=== PATIENT | male | born 1975 | race African-American/Black ===

== ENCOUNTER 2018-10-31 10:37 | Emergency (ER) | payer SELFPAY ==
--- NOTE | 2018-10-31 11:52 | RAD REPORT ---
EXAM DESCRIPTION: RAD - Chest Single View - 10/31/2018 11:46 am CLINICAL HISTORY: Chest pain;Congestion;Cough Chest pain. COMPARISON: CHEST SINGLE VIEW dated 07/06/2015 FINDINGS: Portable technique limits examination quality. The lungs are grossly clear. The heart is normal in size. No displaced fractures. IMPRESSION: No acute intrathoracic process suspected.
--- NOTE | 2018-10-31 11:57 | EKG ---
Test Date: 2018-10-31 Test Time: 11:44:07 Silver Solution Mixer: ELEANOR MEASUREMENT RESULTS: Intervals: Rate: 92 UT: 146 QRSD: 90 QT: 366 QTc: 452 Clemons: P: 70 UT: 146 QRS: 8 T: 81 INTERPRETIVE STATEMENTS: Normal sinus rhythm Possible Left atrial enlargement Incomplete right bundle branch block Borderline ECG Compared to ECG 07/06/2015 20:28:21 Myocardial infarct finding no longer present Electronically Signed On 10-31-18 11:56:57 HONEY PROCESSOR by Evans Price
[2018-10-31] MEDS ORDERED: METHYLPREDNISOLONE 125 MG INJ ONE (12:03)
[2018-10-31] MEDS ORDERED: LEVALBUTEROL 1.25 MG/3 ML NEB ONE (12:03)
[2018-10-31 12:26] LABS: Absolute Lymphocytes (CBC) 1.3 K/uL (0.7-4.9); Absolute Monocytes 0.7 K/uL (0.1-1.3); Absolute Neutrophil 9.2 K/uL (1.8-8.0); Basophils % 0.4 % (0-1.3); Eosinophils % 0.6 % (0-4.4); Hematocrit 42.9 % (39.6-49.0); Lymphocytes % 11.3 % (15.3-44.8); MPV 8.8 fL (7.6-11.3); Monocytes % 5.8 % (3.3-12.3); RBC Red Blood Cell Count 5.12 M/uL (4.33-5.43)
[2018-10-31 12:29] LABS: Protime INR 1.12
[2018-10-31 12:46] LABS: ALT/SGPT 21 U/L (12-78); AST/SGOT 10 U/L (15-37); Albumin 2.7 g/dL (3.4-5.0); Alkaline Phosphatase 74 U/L (45-117); BUN Blood Urea Nitrogen 18 mg/dL (7-18); Bicarbonate 26 mmol/L (21-32); Bilirubin Direct < 0.1 mg/dL (0-0.2); Bilirubin Total 0.3 mg/dL (0.2-1.0); Glucose Level 316 mg/dL (74-106); Magnesium 2.1 mg/dL (1.8-2.4); NT PRO-BNP 438 pg/mL (<125); Potassium 3.3 mmol/L (3.5-5.1); Protein, Total 6.2 g/dL (6.4-8.2); Sodium Level 139 mmol/L (136-145); Troponin (Emerg Dept Use Only) < 0.02 ng/mL (0.0-0.045)
[2018-10-31] MEDS ORDERED: POTASSIUM CL SA 10 MEQ TAB PO ONE (14:02)
[2018-10-31] MEDS ORDERED: INSULIN -REGULAR HUMAN 50 UNIT/0.5 ML ML ONE (14:02)
[2018-10-31] MEDS ORDERED: ACETAMINOPHEN 500 MG TAB ONE (14:03)
--- NOTE | 2018-10-31 15:00 | ER ---
Nurse's Notes [facility] Name: Krishna Ha Age: 42 yrs Sex: Male : 1975 Arrival Date: 10/31/2018 Time: 10:42 Bed 24 Private MD: Clement Rodriguez Diagnosis: Viral infection, unspecified;Fever, unspecified;Acute upper respiratory infection, unspecified Presentation: 10/31 10:52 Presenting complaint: Patient states: i have difficulty breathing, cant breathe that hj good and it started last night; reports cough, reports fever and chills; took Maddi seltzer plus INDUSTRIAL STAFF NURSE;. Transition of care: patient was not received from another setting of care. Onset of symptoms was October 31, 2018. Risk Assessment: Do you want to hurt yourself or someone else? Patient reports no desire to harm self or others. Initial Sepsis Screen: Does the patient meet any 2 criteria? No. Patient's initial sepsis screen is negative. Does the patient have a suspected source of infection? No. Patient's initial sepsis screen is negative. Care prior to arrival: None. 10:52 Method Of Arrival: Ambulatory 10:52 Acuity: DOIMNIQUE 3 hj Triage Assessment: 10:54 General: Appears in no apparent distress. uncomfortable, Behavior is calm, cooperative, hj appropriate for age. Pain: Complains of pain in chest. Respiratory: Reports shortness of breath Onset: The symptoms/episode began/occurred yesterday, the patient has mild shortness of breath. Historical: - Allergies: 10:54 Ranitidine HCl; hj - Home Meds: 10:54 lisinopril-hydrochlorothiazide oral oral [Active]; Glimepiride Oral [Active]; Invokamet hj oral oral [Active]; - PMHx: 10:54 Diabetes - NIDDM; Hypertension; hj - PSHx: 10:54 None; hj - Immunization history:: Adult Immunizations up to date. - Social history:: Smoking status: Patient uses tobacco products, Patient uses alcohol. - Ebola Screening: : Patient negative for fever greater than or equal to 101.5 degrees Fahrenheit, and additional compatible Ebola Virus Disease symptoms Patient denies exposure to infectious person Patient denies travel to an Ebola-affected area in the 21 days before illness onset. Screenin:55 Abuse screen: Denies threats or abuse. Denies injuries from another. Nutritional hj screening: No deficits noted. Tuberculosis screening: No symptoms or risk factors identified. Fall Risk None identified. Assessment: 10:55 Respiratory: Airway is patent Respiratory effort is even, unlabored, Respiratory hj pattern is regular, 10:55 Cardiovascular: Rhythm is. hj 11:30 General: Appears in no apparent distress. uncomfortable, Behavior is calm, cooperative, aj1 appropriate for age. Pain: Complains of pain in chest Pain currently is 8 out of 10 on a pain scale. Neuro: Level of Consciousness is awake, alert, obeys commands, Oriented to person, place, time, situation. Cardiovascular: Reports chest pain, Patient's skin is warm and dry. Rhythm is sinus rhythm. Respiratory: Reports shortness of breath cough that is persistent Airway is patent Respiratory effort is even, unlabored, Respiratory pattern is regular, symmetrical, Breath sounds are coarse bilaterally. GI: No signs and/or symptoms were reported involving the gastrointestinal system. : No signs and/or symptoms were reported regarding the genitourinary system. Derm: No signs and/or symptoms reported regarding the dermatologic system. Skin is pink, warm \T\ dry. normal. Musculoskeletal: No signs and/or symptoms reported regarding the musculoskeletal system. Circulation, motion, and sensation intact. 12:23 Reassessment: Patient appears in no apparent distress at this time. No changes from aj1 previously documented assessment. Patient and/or family updated on plan of care and expected duration. Pain level reassessed. Patient is alert, oriented x 3, equal unlabored respirations, skin warm/dry/pink. 13:40 Reassessment: Dr. Larsen at bedside. aj1 14:10 Reassessment: Patient appears in no apparent distress at this time. No changes from aj1 previously documented assessment. Patient and/or family updated on plan of care and expected duration. Pain level reassessed. Patient is alert, oriented x 3, equal unlabored respirations, skin warm/dry/pink. 15:27 Reassessment: Patient appears in no apparent distress at this time. No changes from aj1 previously documented assessment. Patient and/or family updated on plan of care and expected duration. Pain level reassessed. Patient is alert, oriented x 3, equal unlabored respirations, skin warm/dry/pink. Vital Signs: 10:55 BP 138 / 82; Pulse 95; Resp 18; Temp 100.9(TE); Pulse Ox 97% on R/A; Weight 99.79 kg; hj Height 5 ft. 9 in. (175.26 cm); Pain 8/10; 12:23 BP 133 / 92; Pulse 94; Resp 17; Pulse Ox 100% on Nebulizer Mask; aj1 14:10 BP 139 / 87; Pulse 99; Resp 18; Pulse Ox 100% on R/A; aj1 15:27 BP 123 / 86; Pulse 91; Resp 18; Pulse Ox 100% on R/A; aj1 10:55 Body Mass Index 32.49 (99.79 kg, 175.26 cm) hj ED Course: 10:42 Patient arrived in ED. mr 10:42 Clement Rodriguez MD is Private Physician. mr 10:43 Abdoulaye Larsen MD is Attending Physician. kdr 10:53 Triage completed. hj 10:55 Arm band placed on right wrist. hj 10:55 Patient has correct armband on for positive identification. Bed in low position. Call hj light in reach. Side rails up X 1. 11:30 No provider procedures requiring assistance completed. aj1 11:31 Coleen Malagon, RN is Primary Nurse. aj1 11:46 XRAY Chest (1 view) In Process Unspecified. EDMS 11:46 X-ray completed. Portable x-ray completed in exam room. Patient tolerated procedure jb2 well. 11:54 EKG done, by ground water technician. reviewed by Abdoulaye Larsen MD. sm3 12:15 Initial lab(s) drawn, by wi, sent to lab. Inserted saline lock: 22 gauge in right aj1 antecubital area, using aseptic technique. Blood collected. 14:58 Clement Rodriguez MD is Referral Physician. kdr 15:28 IV discontinued, intact, bleeding controlled, No redness/swelling at site. Pressure aj1 dressing applied. Administered Medications: 12:15 Drug: SOLU-Medrol 125 mg Route: IVP; Site: right antecubital; aj1 14:09 Follow up: Response: No adverse reaction aj1 12:16 Drug: Xopenex (3) 1.25 mg Route: Inhalation; aj1 14:09 Follow up: Response: No adverse reaction aj1 14:00 Drug: Potassium Chloride 40 mEq Route: PO; aj1 15:29 Follow up: Response: No adverse reaction aj1 14:00 Drug: Insulin Regular Human 6 units {Co-Signature: tl3 (Elena Moreno RN).} Route: IVP; aj Site: right antecubital; 15:29 Follow up: Response: No adverse reaction aj1 14:00 Drug: Tylenol 1000 mg Route: PO; aj1 15:29 Follow up: Response: No adverse reaction aj1 Point of Care Testing: Blood Glucose: 14:32 Blood Glucose: 166 mg/dL; aj1 Ranges: Outcome: 14:59 Discharge ordered by . kdr 15:28 Discharged to home ambulatory. aj1 15:28 Condition: good 15:28 Discharge instructions given to patient, Instructed on discharge instructions, follow up and referral plans. medication usage, Demonstrated understanding of instructions, follow-up care, medications, Prescriptions given X 2. 15:29 Patient left the ED. aj1 Signatures: Dispatcher [employer] Coleen Chapman RN RN aj1 Abdoulaye Larsen MD MD kdr Rivera, Mary mr FlemingEladio jb2 Jorge Walton, RN RN Shaina Rose 3 Elena Moreno RN tl3 Corrections: (The following items were deleted from the chart) 10:57 10:55 Pulse 95bpm; Resp 18bpm; Pulse Ox 97% RA; Temp 100.9F Temporal; 99.79 kg; Height hj 5 ft. 9 in.; BMI: 32.4; Pain 8/10; hj
--- NOTE | 2018-10-31 15:00 | EDPHYS ---
Physician Documentation [facility] Name: Krishna Ha Age: 42 yrs Sex: Male : 1975 Arrival Date: 10/31/2018 Time: 10:42 Bed 24 Private MD: Clement Rodriguez ED Physician Abdoulaye Larsen HPI: 10/31 14:53 This 42 yrs old Black Male presents to ER via Ambulatory with complaints of Breathing kdr Difficulty. 14:53 The patient has shortness of breath at rest, with light activity. Onset: The kdr symptoms/episode began/occurred gradually. 14:54 Onset: The symptoms/episode began/occurred last night. Duration: The symptoms are kdr continuous, and are steadily getting worse. The patient's shortness of breath is aggravated by coughing, exertion, light activity, is alleviated by nothing. Associated signs and symptoms: Pertinent positives: non-productive cough, Pertinent negatives: dizziness, fever, hemoptysis, loss of consciousness, nausea, numbness in extremities, visual changes, vomiting. Severity of symptoms: At their worst the symptoms were mild moderate just prior to arrival, in the emergency department the symptoms are unchanged. The patient has not experienced similar symptoms in the past. The patient has not recently seen a physician. Historical: - Allergies: 10:54 Ranitidine HCl; hj - Home Meds: 10:54 lisinopril-hydrochlorothiazide oral oral [Active]; Glimepiride Oral [Active]; Invokamet hj oral oral [Active]; - PMHx: 10:54 Diabetes - NIDDM; Hypertension; hj - PSHx: 10:54 None; hj - Immunization history:: Adult Immunizations up to date. - Social history:: Smoking status: Patient uses tobacco products, Patient uses alcohol. - Ebola Screening: : Patient negative for fever greater than or equal to 101.5 degrees Fahrenheit, and additional compatible Ebola Virus Disease symptoms Patient denies exposure to infectious person Patient denies travel to an Ebola-affected area in the 21 days before illness onset. ROS: 14:54 Constitutional: Negative for fever, chills, and weight loss, Eyes: Negative for injury, kdr pain, redness, and discharge, ENT: Negative for injury, pain, and discharge, Neck: Negative for injury, pain, and swelling, Abdomen/GI: Negative for abdominal pain, nausea, vomiting, diarrhea, and constipation, Back: Negative for injury and pain, : Negative for injury, bleeding, discharge, and swelling, MS/Extremity: Negative for injury and deformity, Skin: Negative for injury, rash, and discoloration, Neuro: Negative for headache, weakness, numbness, tingling, and seizure activity. Psych: Negative for depression, anxiety, suicide ideation, homicidal ideation, and hallucinations, Allergy/Immunology: Negative for hives, rash, and allergies, Endocrine: Negative for neck swelling, polydipsia, polyuria, polyphagia, and marked weight changes, Hematologic/Lymphatic: Negative for swollen nodes, abnormal bleeding, and unusual bruising. 14:54 Cardiovascular: Positive for chest pain, with cough, with movement, of the anterior aspect of right upper chest, anterior aspect of left upper chest, mid-sternal area, right breast and left breast, Negative for edema, orthopnea, palpitations, paroxysmal nocturnal dyspnea. Exam: 14:54 Constitutional: This is a well developed, well nourished patient who is awake, alert, kdr and in no acute distress. Head/Face: Normocephalic, atraumatic. Eyes: Pupils equal round and reactive to light, extra-ocular motions intact. Lids and lashes normal. Conjunctiva and sclera are non-icteric and not injected. Cornea within normal limits. Periorbital areas with no swelling, redness, or edema. Neck: Trachea midline, no thyromegaly or masses palpated, and no cervical lymphadenopathy. Supple, full range of motion without nuchal rigidity, or vertebral point tenderness. No Meningismus. Chest/axilla: Normal chest wall appearance and motion. Nontender with no deformity. No lesions are appreciated. Cardiovascular: Regular rate and rhythm with a normal S1 and S2. No gallops, murmurs, or rubs. Normal PMI, no JVD. No pulse deficits. Respiratory: Lungs have equal breath sounds bilaterally, clear to auscultation and percussion. No rales, rhonchi or wheezes noted. No increased work of breathing, no retractions or nasal flaring. Abdomen/GI: Soft, non-tender, with normal bowel sounds. No distension or tympany. No guarding or rebound. No evidence of tenderness throughout. Back: No spinal tenderness. No costovertebral tenderness. Full range of motion. Skin: Warm, dry with normal turgor. Normal color with no rashes, no lesions, and no evidence of cellulitis. MS/ Extremity: Pulses equal, no cyanosis. Neurovascular intact. Full, normal range of motion. Neuro: Awake and alert, GCS 15, oriented to person, place, time, and situation. Cranial nerves II-XII grossly intact. Motor strength 5/5 in all extremities. Sensory grossly intact. Cerebellar exam normal. Normal gait. Psych: Awake, alert, with orientation to person, place and time. Behavior, mood, and affect are within normal limits. Vital Signs: 10:55 BP 138 / 82; Pulse 95; Resp 18; Temp 100.9(TE); Pulse Ox 97% on R/A; Weight 99.79 kg; hj Height 5 ft. 9 in. (175.26 cm); Pain 8/10; 12:23 BP 133 / 92; Pulse 94; Resp 17; Pulse Ox 100% on Nebulizer Mask; aj1 14:10 BP 139 / 87; Pulse 99; Resp 18; Pulse Ox 100% on R/A; aj1 15:27 BP 123 / 86; Pulse 91; Resp 18; Pulse Ox 100% on R/A; aj1 10:55 Body Mass Index 32.49 (99.79 kg, 175.26 cm) hj MDM: 14:54 Data reviewed: vital signs, nurses notes, lab test result(s), radiologic studies. kdr Counseling: I had a detailed discussion with the patient and/or guardian regarding: the historical points, exam findings, and any diagnostic results supporting the discharge/admit diagnosis, lab results, radiology results, the need for outpatient follow up. 14:59 Patient medically screened. kdr 10/31 11:21 Order name: Basic Metabolic Panel; Complete Time: 13:20 kdr 10/31 11:21 Order name: CBC with Diff; Complete Time: 13:20 kdr 10/31 11:21 Order name: LFT's; Complete Time: 13:20 kdr 10/31 11:21 Order name: Magnesium; Complete Time: 13:20 kdr 10/31 11:21 Order name: NT PRO-BNP; Complete Time: 13:20 kdr 10/31 11:21 Order name: PT-INR; Complete Time: 13:20 kdr 10/31 11:21 Order name: Troponin (emerg Dept Use Only); Complete Time: 13:20 kdr 10/31 11:21 Order name: XRAY Chest (1 view); Complete Time: 12:23 kdr 10/31 13:46 Order name: Flu; Complete Time: 14:52 kdr 10/31 11:21 Order name: EKG; Complete Time: 11:21 kdr 10/31 11:21 Order name: Cardiac monitoring; Complete Time: 12:17 kdr 10/31 11:21 Order name: EKG - Nurse/Tech; Complete Time: 12:17 kdr 10/31 11:21 Order name: IV Saline Lock; Complete Time: 12:17 kdr 10/31 11:21 Order name: Labs collected and sent; Complete Time: 12:17 kdr 10/31 11:21 Order name: O2 Per Protocol; Complete Time: 12:17 kdr 10/31 11:21 Order name: O2 Sat Monitoring; Complete Time: 12:18 kdr 10/31 13:45 Order name: FSBS: 30 minutes after insulin; Complete Time: 14:32 kdr Administered Medications: 12:15 Drug: SOLU-Medrol 125 mg Route: IVP; Site: right antecubital; aj1 14:09 Follow up: Response: No adverse reaction aj1 12:16 Drug: Xopenex (3) 1.25 mg Route: Inhalation; aj1 14:09 Follow up: Response: No adverse reaction aj1 14:00 Drug: Potassium Chloride 40 mEq Route: PO; aj1 15:29 Follow up: Response: No adverse reaction aj1 14:00 Drug: Insulin Regular Human 6 units {Co-Signature: tl3 (Elena Moreno RN).} Route: IVP; aj1 Site: right antecubital; 15:29 Follow up: Response: No adverse reaction aj1 14:00 Drug: Tylenol 1000 mg Route: PO; aj1 15:29 Follow up: Response: No adverse reaction aj1 Point of Care Testing: Blood Glucose: 14:32 Blood Glucose: 166 mg/dL; aj1 Ranges: Critical Glucose Levels:Adult <50 mg/dl or >400 mg/dl <40 mg/dl or >180 mg/dl Disposition: 10/31/18 14:59 Discharged to Home. Impression: Viral infection, unspecified, Fever, unspecified, Acute upper respiratory infection, unspecified. - Condition is Stable. - Discharge Instructions: Upper Respiratory Infection, Adult, Upper Respiratory Infection, Adult, [id number]. - Prescriptions for Guaifenesin AC 10- 100 mg/5 mL Oral Liquid - take 10 milliliter by ORAL route every 4 hours As needed; 240 milliliter. Zithromax Z- Ivan 250 mg Oral Tablet - take 1 tablet by ORAL route as directed for 5 days Day 1 - take two (2) tablets one time. Day 2, 3, 4 , 5 take one (1) tablet once daily.; 6 tablet. - Medication Reconciliation Form, Thank You Letter, Antibiotic Education form. - Follow up: Clement Rodriguez MD; When: 2 - 3 days; Reason: If symptoms return, Further diagnostic work-up, Recheck today's complaints, Continuance of care, Re-evaluation by your physician. - Problem is new. - Symptoms have improved. Signatures: Dispatcher [employer] EDMS Coleen Malagon RN RN aj1 Abdoulaye Larsen MD MD [facility] Jorge Walton RN RN Elena Moreno RN tl3 Corrections: (The following items were deleted from the chart) 15:29 14:59 10/31/2018 14:59 Discharged to Home. Impression: Viral infection, unspecified; aj1 Fever, unspecified; Acute upper respiratory infection, unspecified. Condition is Stable. Forms are Medication Reconciliation Form, Thank You Letter, Antibiotic Education, Prescription Opioid Use. Follow up: Clement Rodriguez; When: 2 - 3 days; Reason: If symptoms return, Further diagnostic work-up, Recheck today's complaints, Continuance of care, Re-evaluation by your physician. Problem is new. Symptoms have improved. kdr
== END 2018-10-31 15:29 | disposition home or self-care (01) ==
LOC: ER 10:37
DX: B34.9 Viral infection, unspecified (principal); J06.9 Acute upper respiratory infection, unspecified; I10 Essential (primary) hypertension; E11.9 Type 2 diabetes mellitus without complications; Z72.0 Tobacco use; Z88.8 Allergy status to other drugs, medicaments and biological substances
CPT/HCPCS: 36415; 71045; 80048; 80076; 82962; 83735; 83880; 84484; 85025; 85610; 87804; 93005; 96374; 96375; 99285; J2930

== ENCOUNTER 2019-07-28 13:49 | Emergency (ER) | payer SELFPAY ==
[2019-07-28] MEDS ORDERED: LIDOCAINE 1% MPF 5 ML VIAL ONE (14:13)
[2019-07-28] MEDS ORDERED: TETANUS & DIPHTHERIA TOX,ADULT 0.5 ML VIAL ONE (14:18)
--- NOTE | 2019-07-28 14:34 | ER ---
Nurse's Notes [facility] Name: Krishna Ha Age: 43 yrs Sex: Male : 1975 Arrival Date: 07/28/2019 Time: 13:51 Bed 30 Private MD: Diagnosis: Laceration without foreign body of right hand Presentation: 07/28 13:54 Presenting complaint: Patient states: "Im at my [facility] shack and there was a fly in there aj1 and he went to the [facility] and I tried to hit him, but my hand went through the [facility]" Laceration noted to right hand, no bleeding noted at this time. Transition of care: patient was not received from another setting of care. Complicating Factors: Possible glass present, none visualized at this time. Onset of symptoms was July 28, 2019 at 13:30. Risk Assessment: Do you want to hurt yourself or someone else? Patient reports no desire to harm self or others. Initial Sepsis Screen: Does the patient meet any 2 criteria? No. Patient's initial sepsis screen is negative. Does the patient have a suspected source of infection? No. Patient's initial sepsis screen is negative. Care prior to arrival: None. 13:54 Method Of Arrival: Ambulatory aj 13:54 Acuity: DOMINIQUE 4 aj1 Triage Assessment: 13:59 General: Appears in no apparent distress. comfortable, Behavior is calm, cooperative, aj1 appropriate for age. Pain: Complains of pain in right hand Pain currently is 5 out of 10 on a pain scale. Neuro: Level of Consciousness is awake, alert, obeys commands. Cardiovascular: Patient's skin is warm and dry. Respiratory: Airway is patent Respiratory effort is even, unlabored, Respiratory pattern is regular, symmetrical. Injury Description: Laceration sustained to outer aspect of right palm is bleeding no active bleeding noted. Historical: - Allergies: 13:56 Ranitidine HCl; aj1 - Home Meds: 13:56 Glimepiride Oral [Active]; aj1 13:58 pioglitazone oral oral [Active]; lisinopril-hydrochlorothiazide oral oral [Active]; aj1 Trulicity subcutaneous subcutaneous [Active]; - PMHx: 13:59 Hypertension; Diabetes - NIDDM; aj1 - Immunization history:: Flu vaccine is up to date. - Social history:: Smoking status: Patient uses tobacco products, smokes one pack cigarettes per day. - Ebola Screening: : Patient denies travel to an Ebola-affected area in the 21 days before illness onset. Screenin:41 Abuse screen: Denies threats or abuse. Denies injuries from another. Nutritional ss screening: No deficits noted. Tuberculosis screening: No symptoms or risk factors identified. Never had TB. Fall Risk None identified. Assessment: 14:30 General: Appears in no apparent distress. comfortable, Behavior is calm, cooperative. mg2 14:30 Pain: Complains of pain in right hand Pain does not radiate. Pain currently is 3 out of mg2 10 on a pain scale. Quality of pain is described as aching, Pain began suddenly. Neuro: Level of Consciousness is awake, alert, obeys commands, Oriented to person, place, time, situation. Cardiovascular: Capillary refill < 3 seconds Patient's skin is warm and dry. Respiratory: Airway is patent Respiratory effort is even, unlabored, Respiratory pattern is regular, symmetrical. GI: No signs and/or symptoms were reported involving the gastrointestinal system. : No deficits noted. EENT: No signs and/or symptoms were reported regarding the EENT system. Derm: Skin is pink, warm \\T\\ dry. normal. Musculoskeletal: Circulation, motion, and sensation intact. Capillary refill < 3 seconds. Injury Description: Laceration sustained to dorsum of right hand is clean, 0.5 to 2.5 cm long, not bleeding. 14:41 Reassessment: Patient appears in no apparent distress at this time. Patient and/or ss family updated on plan of care and expected duration. Pain level reassessed. Patient is alert, oriented x 3, equal unlabored respirations, skin warm/dry/pink. Vital Signs: 13:59 BP 133 / 82; Pulse 88; Resp 18; Temp 97.8; Pulse Ox 97% on R/A; Weight 102.06 kg (R); aj1 Height 5 ft. 10 in. (177.80 cm) (R); Pain 5/10; 13:59 Body Mass Index 32.28 (102.06 kg, 177.80 cm) aj1 ED Course: 13:51 Patient arrived in ED. mr 13:56 Triage completed. aj1 13:59 Arm band placed on Patient placed in an exam room. aj1 14:02 Lyndsay Knowles FNP-C is [facility]. kb 14:02 Jayant Rae MD is Attending Physician. kb 14:41 Elizabeth Fernández, JORDYN is Primary Nurse. ss 14:41 Patient has correct armband on for positive identification. Bed in low position. Call ss light in reach. 14:41 Patient did not have IV access during this emergency room visit. ss Administered Medications: 14:18 Drug: Lidocaine (1 %) 1 vials {Note: administered by the provider.} Volume: 5 ml; mg2 Route: Infiltration; 14:40 Follow up: Response: No adverse reaction mg2 14:18 Drug: Tetanus-Diphtheria Toxoid Adult 0.5 ml {Record Press Operator: [employer]. Exp: mg2 03/14/2021. Lot #: [id number]. } Route: IM; Site: right deltoid; 14:19 Follow up: Response: No adverse reaction mg2 Outcome: 14:33 Discharge ordered by MD. kb 14:41 Discharged to home ambulatory. ss 14:41 Condition: good 14:41 Discharge instructions given to patient, family, Instructed on discharge instructions, follow up and referral plans. medication usage, Demonstrated understanding of instructions, follow-up care. 14:42 Patient left the ED. ss Signatures: Lyndsay Knowles FNP-C TOASTER ELEMENT REPAIRER-Ckb Coleen Malagon RN RN [facility] Bee Gomez mr Elizabeth Fernández, JORDYN COBB Sourav Jaime RN RN mg2 Corrections: (The following items were deleted from the chart) 13:59 13:56 Home Meds: lisinopril-hydrochlorothiazide oral Oral [Inactive]; [place] [id number] 13:59 13:56 Home Meds: Invokamet oral Oral [Inactive]; [place] [address] 13:59 13:56 PMHx: Hypertension [Inactive]; [place] [address] 13:59 13:56 PMHx: Diabetes - NIDDM [Inactive]; [place] [address] 14:43 14:41 No provider procedures requiring assistance completed. mg2
--- NOTE | 2019-07-28 14:34 | EDPHYS ---
Physician Documentation [facility] Name: Krishna Ha Age: 43 yrs Sex: Male : 1975 Arrival Date: 07/28/2019 Time: 13:51 Bed 30 Private MD: ED Physician Jayant Rae HPI: 07/28 14:31 This 43 yrs old Black Male presents to ER via Ambulatory with complaints of Laceration kb To Hand. 14:31 The patient has a laceration related to: cut on car occurred at home, and there are no kb complicating factors. The injury was accidental. The laceration(s) is(are) located on the dorsum of right hand. Onset: The symptoms/episode began/occurred just prior to arrival. Associated signs and symptoms: The patient has no apparent associated signs or symptoms. The patient has not experienced similar symptoms in the past. The patient has not recently seen a physician. Pt reports he cut his hand on a piece of glass. Historical: - Allergies: 13:56 Ranitidine HCl; aj1 - Home Meds: 13:56 Glimepiride Oral [Active]; aj1 13:58 pioglitazone oral oral [Active]; lisinopril-hydrochlorothiazide oral oral [Active]; aj1 Trulicity subcutaneous subcutaneous [Active]; - PMHx: 13:59 Hypertension; Diabetes - NIDDM; aj1 - Immunization history:: Flu vaccine is up to date. - Social history:: Smoking status: Patient uses tobacco products, smokes one pack cigarettes per day. - Ebola Screening: : Patient denies travel to an Ebola-affected area in the 21 days before illness onset. ROS: 14:30 Constitutional: Negative for fever, chills, and weight loss, ENT: Negative for injury, kb pain, and discharge, Neck: Negative for injury, pain, and swelling, Cardiovascular: Negative for chest pain, palpitations, and edema, Respiratory: Negative for shortness of breath, cough, wheezing, and pleuritic chest pain, Abdomen/GI: Negative for abdominal pain, nausea, vomiting, diarrhea, and constipation, MS/Extremity: Negative for injury and deformity, Neuro: Negative for headache, weakness, numbness, tingling, and seizure. 14:30 Skin: Positive for laceration(s), of the dorsum of right hand. Exam: 14:30 Constitutional: This is a well developed, well nourished patient who is awake, alert, kb and in no acute distress. Head/Face: Normocephalic, atraumatic. Neck: Trachea midline, no thyromegaly or masses palpated, and no cervical lymphadenopathy. Supple, full range of motion without nuchal rigidity, or vertebral point tenderness. No Meningismus. Chest/axilla: Normal chest wall appearance and motion. Nontender with no deformity. No lesions are appreciated. Cardiovascular: Regular rate and rhythm with a normal S1 and S2. No gallops, murmurs, or rubs. Normal PMI, no JVD. No pulse deficits. Respiratory: Lungs have equal breath sounds bilaterally, clear to auscultation and percussion. No rales, rhonchi or wheezes noted. No increased work of breathing, no retractions or nasal flaring. Abdomen/GI: Soft, non-tender, with normal bowel sounds. No distension or tympany. No guarding or rebound. No evidence of tenderness throughout. MS/ Extremity: Pulses equal, no cyanosis. Neurovascular intact. Full, normal range of motion. Neuro: Awake and alert, GCS 15, oriented to person, place, time, and situation. Cranial nerves II-XII grossly intact. Motor strength 5/5 in all extremities. Sensory grossly intact. Cerebellar exam normal. Normal gait. 14:30 Skin: injury, laceration(s), the wound is approximately 2 cm(s), of the dorsum of right hand, that can be described as clean, no foreign body, linear, without bleeding. Vital Signs: 13:59 BP 133 / 82; Pulse 88; Resp 18; Temp 97.8; Pulse Ox 97% on R/A; Weight 102.06 kg (R); aj1 Height 5 ft. 10 in. (177.80 cm) (R); Pain 5/10; 13:59 Body Mass Index 32.28 (102.06 kg, 177.80 cm) aj1 Laceration: 14:35 Wound Repair of 2cm ( 0.8in ) subcutaneous laceration to dorsum of right hand. Linear kb shaped.. Distal neuro/vascular/tendon intact. Anesthesia: Wound infiltrated with 1% lidocaine. Wound prep: Extensive cleansing, Wound irrigation. Skin closed with 3 4-0 Prolene using interrupted sutures and sterile technique. Dressed with Neosporin, bandaid. Patient tolerated well. MDM: 14:02 Patient medically screened. kb 14:28 Data reviewed: vital signs, nurses notes. Data interpreted: Pulse oximetry: on room air kb is 97 %. Interpretation: normal. Counseling: I had a detailed discussion with the patient and/or guardian regarding: the historical points, exam findings, and any diagnostic results supporting the discharge/admit diagnosis, the need for outpatient follow up, a family practitioner, to return to the emergency department if symptoms worsen or persist or if there are any questions or concerns that arise at home. 07/28 14:09 Order name: Prolene, Sutures; Complete Time: 14:13 kb 07/28 14:09 Order name: Dressing - Wound; Complete Time: 14:39 kb 07/28 14:09 Order name: Gloves, Sterile; Complete Time: 14:14 kb 07/28 14:09 Order name: Setup Suture Tray; Complete Time: 14:14 kb Administered Medications: 14:18 Drug: Lidocaine (1 %) 1 vials {Note: administered by the provider.} Volume: 5 ml; mg2 Route: Infiltration; 14:40 Follow up: Response: No adverse reaction mg2 14:18 Drug: Tetanus-Diphtheria Toxoid Adult 0.5 ml {Mail Technician: [employer]. Exp: mg2 03/14/2021. Lot #: [id number]. } Route: IM; Site: right deltoid; 14:19 Follow up: Response: No adverse reaction mg2 Disposition: 18:31 Co-signature as Attending Physician, Jayant Rae MD. rn Disposition: 07/28/19 14:33 Discharged to Home. Impression: Laceration without foreign body of right hand. - Condition is Stable. - Discharge Instructions: Laceration Care, Adult, [id number]. - Medication Reconciliation Form, Thank You Letter, Antibiotic Education, Prescription Opioid Use form. - Follow up: Emergency Department; When: As needed; Reason: Worsening of condition. Follow up: Private Physician; When: 2 - 3 days; Reason: Recheck today's complaints, Continuance of care, Re-evaluation by your physician. Signatures: Lyndsay Knowles, MERCHANDISE COORDINATOR-C MERCHANDISE COORDINATOR-Coleen Jimenez RN RN aj1 Jayant Rae MD MD rn Smirch, Shelby, RN RN ss Sourav Jaime RN RN mg2 Corrections: (The following items were deleted from the chart) 13:59 13:56 Home Meds: lisinopril-hydrochlorothiazide oral Oral [Inactive]; aj1 aj 13:59 13:56 Home Meds: Invokamet oral Oral [Inactive]; aj1 aj 13:59 13:56 PMHx: Hypertension [Inactive]; aj1 aj 13:59 13:56 PMHx: Diabetes - NIDDM [Inactive]; aj1 aj 14:42 14:33 07/28/2019 14:33 Discharged to Home. Impression: Laceration without foreign body ss of right hand. Condition is Stable. Forms are Medication Reconciliation Form, Thank You Letter, Antibiotic Education, Prescription Opioid Use. Follow up: Emergency Department; When: As needed; Reason: Worsening of condition. Follow up: Private Physician; When: 2 - 3 days; Reason: Recheck today's complaints, Continuance of care, Re-evaluation by your physician. kb
[2019-07-28 14:50] VITALS: BP 133/82; TEMP 97.8; O2SAT 97
== END 2019-07-28 14:42 | disposition home or self-care (01) ==
LOC: ER 13:49
PROC: 0JQJ0ZZ Repair Right Hand Subcutaneous Tissue and Fascia, Open Approach (ICD-10-PCS; principal; 2019-07-28)
DX: S61.411A Laceration without foreign body of right hand, initial encounter (principal); W25.XXXA Contact with sharp glass, initial encounter; Y93.89 Activity, other specified; Y92.9 Unspecified place or not applicable; Z23 Encounter for immunization
CPT/HCPCS: 90471; 90714; 99283

== ENCOUNTER 2019-12-28 21:27 | Emergency (ER) | payer SELFPAY ==
[2019-12-28 22:19] LABS: Absolute Lymphocytes (CBC) 2.2 K/uL (0.7-4.9); Basophils % 1.3 % (0-1.3); Hematocrit 37.2 % (39.6-49.0); Lymphocytes % 20.9 % (15.3-44.8); MPV 8.7 fL (7.6-11.3)
[2019-12-28 22:35] LABS: ALT/SGPT 19 U/L (12-78); AST/SGOT 15 U/L (15-37); Albumin 2.4 g/dL (3.4-5.0); Alkaline Phosphatase 72 U/L (45-117); BUN Blood Urea Nitrogen 25 mg/dL (7-18); Bicarbonate 24 mmol/L (21-32); Bilirubin Direct < 0.1 mg/dL (0-0.2); Bilirubin Total 0.1 mg/dL (0.2-1.0); Glucose Level 232 mg/dL (74-106); Magnesium 1.7 mg/dL (1.8-2.4); NT PRO-BNP 136 pg/mL (<125); Potassium 3.2 mmol/L (3.5-5.1); Protein, Total 5.5 g/dL (6.4-8.2); Sodium Level 142 mmol/L (136-145); Troponin (Emerg Dept Use Only) < 0.02 ng/mL (0.0-0.045)
[2019-12-28 22:46] LABS: Protime INR 1.04
[2019-12-28] MEDS ORDERED: POTASSIUM CL SA 10 MEQ TAB PO ONE (23:23)
--- NOTE | 2019-12-29 00:34 | ER ---
Nurse's Notes [facility] Name: Krishna Ha Age: 44 yrs Sex: Male : 1975 Arrival Date: 12/28/2019 Time: 21:36 Bed 14 Private MD: Diagnosis: Chest pain Presentation: 12/28 21:36 Chief complaint: Patient states: Patient was driving and had to stop because was having ao chest pain. Initial BP by EMS was 200/124. Patient was given nitro Sublingual and then BP was 140/92. Patient has no pain at this time. Coronavirus screen: The patient has NOT traveled to [place] in the past 14 days. Proceed with normal triage procedures. The patient has NOT had contact with known and/or suspected case of Coronavirus. Proceed with normal triage procedures. Ebola Screen: Patient negative for fever greater than or equal to 101.5 degrees Fahrenheit, and additional compatible Ebola Virus Disease symptoms Patient denies exposure to infectious person. Patient denies travel to an Ebola-affected area in the 21 days before illness onset. Initial Sepsis Screen: Does the patient meet any 2 criteria? No. Patient's initial sepsis screen is negative. Does the patient have a suspected source of infection? No. Patient's initial sepsis screen is negative. Risk Assessment: Do you want to hurt yourself or someone else? Patient reports no desire to harm self or others. 21:36 Method Of Arrival: EMS: [facility] ao 21:36 Acuity: DOMINIQUE 2 ao 23:02 Onset of symptoms is unknown. ao Historical: - Allergies: 21:42 Ranitidine HCl; ao - Home Meds: 21:42 Glimepiride Oral [Active]; lisinopril-hydrochlorothiazide Oral [Active]; pioglitazone ao Oral [Active]; Trulicity subcutaneous [Active]; - PMHx: 21:42 Diabetes - NIDDM; Hypertension; ao - PSHx: 21:42 None; ao - Immunization history:: Adult Immunizations up to date. - Social history:: Smoking status: Patient reports the use of cigarette tobacco products, smokes one pack cigarettes per day. Patient/guardian denies using alcohol, street drugs, IV drugs. Screenin:01 Abuse screen: Denies threats or abuse. Denies injuries from another. Nutritional ao screening: No deficits noted. Tuberculosis screening: No symptoms or risk factors identified. Fall Risk None identified. Assessment: 22:00 General: Appears in no apparent distress. comfortable, Behavior is calm, cooperative, ao appropriate for age. Pain: Denies pain. Complains of pain in chest Pain does not radiate. Pain began 1 hour ago. Pain: Complains of pain in Chest pain that has subside with nitro sub. Neuro: Level of Consciousness is awake, alert, obeys commands, Oriented to person, place, time, situation, Appropriate for age Moves all extremities. Full function Speech is normal. Cardiovascular: Reports chest pain, Chest pain that has subside with nitro Heart tones S1 S2 Capillary refill < 3 seconds. Respiratory: Airway is patent Respiratory effort is even, unlabored, Respiratory pattern is regular, symmetrical. GI: Abdomen is non-distended. : No signs and/or symptoms were reported regarding the genitourinary system. EENT: No signs and/or symptoms were reported regarding the EENT system. Derm: No signs and/or symptoms reported regarding the dermatologic system. Skin is intact. Musculoskeletal: Circulation, motion, and sensation intact. Range of motion: intact in all extremities. 23:00 Reassessment: Patient appears in no apparent distress at this time. Patient and/or ao family updated on plan of care and expected duration. Pain level reassessed. Patient sleeping with no SS of distress. monitoring VS and condition. 12/29 00:25 Reassessment: Labs back and patient requested to be DC. DR Rodriguez was notified. ao Vital Signs: 12/28 21:36 BP 138 / 92; Pulse 87; Resp 18; Temp 98.2(TE); Pulse Ox 100% on R/A; Weight 99.79 kg ao (R); Height 6 ft. 0 in. (182.88 cm); Pain 0/10; 23:00 BP 143 / 78; Pulse 80; Resp 20; Pulse Ox 90% ; ao 12/29 00:30 BP 130 / 69; Pulse 79; Resp 18; Temp 98(O); Pulse Ox 100% on R/A; Pain 0/10; ao 12/28 21:36 Body Mass Index 29.84 (99.79 kg, 182.88 cm) ao ED Course: 12/28 21:36 Patient arrived in ED. ao 21:40 Triage completed. ao 21:42 Arm band placed on right wrist. Patient placed in an exam room, on a stretcher, on ao bus monitor, on pulse oximetry, Patient notified of wait time. 21:56 Yovani Rodriguez MD is Attending Physician. pkl 22:00 Maintain EMS IV. Dressing intact. Good blood return noted. Site clean \T\ dry. Gauge \T\ ao site: 20 G left AC. 22:11 Jovi Starks, RN is Primary Nurse. ao 22:16 XRAY Chest (1 view) In Process Unspecified. EDMS 23:02 Patient has correct armband on for positive identification. quality assurance monitor on. Pulse ao ox on. NIBP on. 23:02 Patient maintains SpO2 saturation greater than 95% on room air. ao 12/29 00:30 No provider procedures requiring assistance completed. IV discontinued, intact, ao bleeding controlled, No redness/swelling at site. Pressure dressing applied. 00:32 Bhupinder Santamaria MD is Referral Physician. pkl Administered Medications: 12/28 23:44 Drug: K-Dur 40 mEq Route: PO; ao 12/29 02:04 Follow up: Response: No adverse reaction ao Outcome: 00:31 Condition: stable ao 00:33 Discharge ordered by . pkl 00:37 Discharged to home ambulatory. ao 00:37 Discharge instructions given to patient, Instructed on discharge instructions, follow up and referral plans. Demonstrated understanding of instructions, follow-up care, medications. 00:37 Patient left the ED. ao Signatures: Dispatcher [employer] [facility] Yovani Rodriguez MD MD pkJovi Gao, RN RN ao
--- NOTE | 2019-12-29 00:34 | EDPHYS ---
Physician Documentation [facility] Name: Krishna Ha Age: 44 yrs Sex: Male : 1975 Arrival Date: 12/28/2019 Time: 21:36 Bed 14 Private MD: ED Physician Yovani Rodriguez HPI: 12/28 23:15 This 44 yrs old Black Male presents to ER via EMS with complaints of Chest Pain. pkl 23:15 The patient or guardian reports chest pain that is located primarily in the substernal pkl area. Onset: just prior to arrival. The pain does not radiate. Associated signs and symptoms: The patient has no apparent associated signs or symptoms. The chest pain is described as dull. Historical: - Allergies: 21:42 Ranitidine HCl; ao - Home Meds: 21:42 Glimepiride Oral [Active]; lisinopril-hydrochlorothiazide Oral [Active]; pioglitazone ao Oral [Active]; Trulicity subcutaneous [Active]; - PMHx: 21:42 Diabetes - NIDDM; Hypertension; ao - PSHx: 21:42 None; ao - Immunization history:: Adult Immunizations up to date. - Social history:: Smoking status: Patient reports the use of cigarette tobacco products, smokes one pack cigarettes per day. Patient/guardian denies using alcohol, street drugs, IV drugs. ROS: 23:15 Eyes: Negative for injury, pain, redness, and discharge, ENT: Negative for injury, pkl pain, and discharge, Neck: Negative for injury, pain, and swelling. 23:15 Cardiovascular: Positive for chest pain. 23:15 Respiratory: Negative for cough, shortness of breath. 23:15 Abdomen/GI: Negative for abdominal pain, nausea, vomiting, and diarrhea. 23:15 Back: Negative for acute changes. 23:15 : Negative for urinary symptoms. 23:15 MS/extremity: Negative for acute changes. 23:15 Skin: Negative for rash. 23:15 Neuro: Negative for altered mental status. Exam: 23:15 Head/Face: Normocephalic, atraumatic. Eyes: Pupils equal round and reactive to light, pkl extra-ocular motions intact. Lids and lashes normal. Conjunctiva and sclera are non-icteric and not injected. Cornea within normal limits. Periorbital areas with no swelling, redness, or edema. ENT: Nares patent. No nasal discharge, no septal abnormalities noted. Tympanic membranes are normal and external auditory canals are clear. Oropharynx with no redness, swelling, or masses, exudates, or evidence of obstruction, uvula midline. Mucous membranes moist. Neck: Trachea midline, no thyromegaly or masses palpated, and no cervical lymphadenopathy. Supple, full range of motion without nuchal rigidity, or vertebral point tenderness. No Meningismus. Chest/axilla: Normal chest wall appearance and motion. Nontender with no deformity. No lesions are appreciated. Cardiovascular: Regular rate and rhythm with a normal S1 and S2. No gallops, murmurs, or rubs. Normal PMI, no JVD. No pulse deficits. Respiratory: Lungs have equal breath sounds bilaterally, clear to auscultation and percussion. No rales, rhonchi or wheezes noted. No increased work of breathing, no retractions or nasal flaring. Abdomen/GI: Soft, non-tender, with normal bowel sounds. No distension or tympany. No guarding or rebound. No evidence of tenderness throughout. Back: No spinal tenderness. No costovertebral tenderness. Full range of motion. Skin: Warm, dry with normal turgor. Normal color with no rashes, no lesions, and no evidence of cellulitis. MS/ Extremity: Pulses equal, no cyanosis. Neurovascular intact. Full, normal range of motion. Neuro: Awake and alert, GCS 15, oriented to person, place, time, and situation. Cranial nerves II-XII grossly intact. Motor strength 5/5 in all extremities. Sensory grossly intact. Cerebellar exam normal. Normal gait. Vital Signs: 21:36 BP 138 / 92; Pulse 87; Resp 18; Temp 98.2(TE); Pulse Ox 100% on R/A; Weight 99.79 kg ao (R); Height 6 ft. 0 in. (182.88 cm); Pain 0/10; 23:00 BP 143 / 78; Pulse 80; Resp 20; Pulse Ox 90% ; ao 12/29 00:30 BP 130 / 69; Pulse 79; Resp 18; Temp 98(O); Pulse Ox 100% on R/A; Pain 0/10; ao 12/28 21:36 Body Mass Index 29.84 (99.79 kg, 182.88 cm) ao MDM: 12/28 21:56 Patient medically screened. pkl 12/29 00:29 Data reviewed: vital signs, nurses notes, lab test result(s), EKG, radiologic studies, pkl plain films. ED course: Patient feeling better. Asymptomatic. Discussed lab and X; rays and EKG with patient. Want to go home. Advised to follow up with Supervisor [employer] next week for further evaluations. Patient understood instructions. To return if necessary.. 12/28 22:03 Order name: Basic Metabolic Panel; Complete Time: 23:07 pkl 12/28 22:03 Order name: CBC with Diff; Complete Time: 23:07 pkl 12/28 22:03 Order name: LFT's; Complete Time: 23:07 pk 12/28 22:03 Order name: Magnesium; Complete Time: 23:07 pk 12/28 22:03 Order name: NT PRO-BNP; Complete Time: 23:07 pk 12/28 22:03 Order name: PT-INR; Complete Time: 23:07 pk 12/28 22:03 Order name: Troponin (emerg Dept Use Only); Complete Time: 23:07 pkl 12/28 22:03 Order name: XRAY Chest (1 view) pk 12/28 22:03 Order name: EKG; Complete Time: 22:04 pk 12/28 22:03 Order name: Cardiac monitoring; Complete Time: 22:10 pk 12/28 23:14 Order name: Troponin (emerg Dept Use Only); Complete Time: 00:28 pkl 12/28 22:03 Order name: EKG - Nurse/Tech; Complete Time: 22:10 pk 12/28 22:03 Order name: IV Saline Lock; Complete Time: 22:11 pkl 12/28 22:03 Order name: Labs collected and sent; Complete Time: 22:11 pkl 12/28 22:03 Order name: O2 Per Protocol; Complete Time: 22:11 pk 12/28 22:03 Order name: O2 Sat Monitoring; Complete Time: 22:11 pk 12/28 23:15 Order name: EKG - Nurse/Tech; Complete Time: 23:45 ao Administered Medications: 12/28 23:44 Drug: K-Dur 40 mEq Route: PO; ao 12/29 02:04 Follow up: Response: No adverse reaction ao Disposition: 12/29/19 00:33 Discharged to Home. Impression: Chest pain. - Condition is Stable. - Medication Reconciliation Form, Thank You Letter, Antibiotic Education, Prescription Opioid Use form. - Follow up: Bhupinder Santamaria MD; When: 2 - 3 days; Reason: Re-evaluation by your physician. - Problem is new. - Symptoms are resolved. Signatures: Dispatcher [employer] [facility] Yovani Rodriguez MD MD pkl Jovi Starks RN RN ao Corrections: (The following items were deleted from the chart) 12/28 23:35 23:16 TROPONIN (EMERG DEPT USE ONLY)+[email or web address].[email or web address] ordered. [facility] 12/29 00:37 00:33 12/29/2019 00:33 Discharged to Home. Impression: Chest pain. Condition is Stable. ao Forms are Medication Reconciliation Form, Thank You Letter, Antibiotic Education, Prescription Opioid Use. Follow up: Bhupinder Santamaria; When: 2 - 3 days; Reason: Re-evaluation by your physician. Problem is new. Symptoms are resolved. pkl
[2019-12-29 01:19] VITALS: BP 130/69; TEMP 98; O2SAT 100
--- NOTE | 2019-12-29 07:01 | EKG ---
Test Date: 2019-12-28 Test Time: 21:39:34 Carrier Packer: THIERRY MEASUREMENT RESULTS: Intervals: Rate: 83 DC: 156 QRSD: 92 QT: 388 QTc: 455 [place]: P: 51 DC: 156 QRS: 0 T: 54 INTERPRETIVE STATEMENTS: Normal sinus rhythm RSR' or QR pattern in V1 suggests right ventricular conduction delay Nonspecific T wave abnormality Abnormal ECG Compared to ECG 10/31/2018 11:44:07 RSR' in V1 or V2 now present T-wave abnormality now present Incomplete right bundle-branch block no longer present Electronically Signed On 12-29-19 07:00:22 FILL MANAGER by Bhupinder Santamaria
--- NOTE | 2019-12-29 07:14 | RAD REPORT ---
EXAM DESCRIPTION: RAD - Chest Single View - 12/28/2019 10:16 pm CLINICAL HISTORY: CHEST PAIN COMPARISON: Chest Single View dated 10/31/2018; CHEST SINGLE VIEW dated 07/06/2015 TECHNIQUE: AP portable chest image was obtained 12/28/2019 10:16 pm . FINDINGS: No focal lung abnormality. Interstitial pattern matches comparison. Heart and vasculature are normal. No measurable pleural effusion and no pneumothorax. No acute bony abnormality seen. No ac tazlina aortic findings suspected. IMPRESSION: No acute cardiopulmonary process. No significant interval change.
--- NOTE | 2020-01-01 15:41 | EKG ---
Test Date: 2019-12-28 Test Time: 23:27:45 Gameplay Engineer: PEYTON MEASUREMENT RESULTS: Intervals: Rate: 71 OK: 164 QRSD: 94 QT: 420 QTc: 456 [place]: P: 57 OK: 164 QRS: -1 T: 74 INTERPRETIVE STATEMENTS: Normal sinus rhythm Possible Left atrial enlargement Incomplete right bundle branch block Nonspecific T wave abnormality Abnormal ECG Compared to ECG 12/28/2019 21:39:34 No significant changes Electronically Signed On 01-01-20 15:40:22 LATHE SANDER by Evans Price
== END 2019-12-29 00:37 | disposition home or self-care (01) ==
LOC: ER 21:27
DX: R07.9 Chest pain, unspecified (principal); I10 Essential (primary) hypertension; E11.9 Type 2 diabetes mellitus without complications; F17.210 Nicotine dependence, cigarettes, uncomplicated
CPT/HCPCS: 36415; 71045; 80048; 80076; 83735; 83880; 84484; 85025; 85610; 93005; 99285

== ENCOUNTER 2020-07-04 09:44 | Emergency (ER) | payer SELFPAY ==
--- OUTSIDE RECORDS SUMMARY | 2020-07-04 09:52 | XMS REPORT | Continuity of Care Document ---
:1975 Author Organization [facility] t Address [address] [place] [address] [place] [id number] Care Team Providers Name Role Phone Unavailable Unavailable Unavailable Problems This patient has no known problems. Allergies, Adverse Reactions, Alerts This patient has no known allergies or adverse reactions. Medications This patient has no known medications. Procedures This patient has no known procedures. Results This patient has no known results.
[2020-07-04 10:28] LABS: Absolute Lymphocytes (CBC) 1.9 K/uL (0.7-4.9); Basophils % 0.8 % (0-1.3); Hematocrit 42.5 % (39.6-49.0); MPV 8.7 fL (7.6-11.3); RBC Red Blood Cell Count 5.16 M/uL (4.33-5.43)
--- NOTE | 2020-07-04 10:30 | RAD REPORT ---
EXAM DESCRIPTION: CT - Head Brain Wo Cont - 07/04/2020 10:22 am CLINICAL HISTORY: Dizziness;Weakness;Headache Headache, drowsiness COMPARISON: Head Brain Wo Cont dated 06/02/2016 TECHNIQUE: All CT scans are performed using dose optimization technique as appropriate and may inclu de automated exposure control or mA/KV adjustment according to patient size. FINDINGS: No intracranial hemorrhage, hydrocephalus or extra-axial fluid collection.No areas of brai n edema or evidence of midline shift. The paranasal sinuses and mastoids are clear. The calvarium is intact. IMPRESSION: No acute intracranial abnormality.
[2020-07-04] MEDS ORDERED: HYDRALAZINE HCL 20 MG/ML VIAL ONE (10:34)
[2020-07-04 10:37] LABS: Protime INR 0.92
[2020-07-04 11:49] LABS: ALT/SGPT 24 U/L (12-78); AST/SGOT 13 U/L (15-37); Albumin 2.7 g/dL (3.4-5.0); Alkaline Phosphatase 95 U/L (45-117); BUN Blood Urea Nitrogen 23 mg/dL (7-18); Bicarbonate 26 mmol/L (21-32); Bilirubin Direct < 0.1 mg/dL (0-0.2); Bilirubin Total 0.4 mg/dL (0.2-1.0); Glucose Level 254 mg/dL (74-106); Potassium 3.9 mmol/L (3.5-5.1); Protein, Total 6.8 g/dL (6.4-8.2); Sodium Level 141 mmol/L (136-145)
--- NOTE | 2020-07-04 11:56 | EDPHYS ---
Physician Documentation [facility] Name: Krishna Ha Age: 44 yrs Sex: Male : 1975 Arrival Date: 07/04/2020 Time: 09:46 Bed 6 Private MD: ED Physician Abdoulaye Larsen HPI: 07/04 10:37 This 44 yrs old Black Male presents to ER via Ambulatory with complaints of High Blood jr8 Pressure, Dizziness, Vision Problem. 10:37 Onset: The symptoms/episode began/occurred acutely, today. Associated signs and jr8 symptoms: Pertinent positives: dizziness, headache, lightheadedness, weakness. Severity of symptoms: At its worst the blood pressure was moderate. The patient has not experienced similar symptoms in the past. The patient has not recently seen a physician. Patient stated that his blood pressure was in the 170s-180s systolic with 120s diastolic this AM. Stated that he took his regular regimen of medications but also took clonidine x 2 an hour apart to see if it would reduce blood pressure. Stated that he has had headache behind left eye along with generalized weakness and dizziness. Historical: - Allergies: 09:59 Ranitidine HCl; hb - Home Meds: 09:59 Glimepiride Oral [Active]; lisinopril-hydrochlorothiazide Oral [Active]; pioglitazone hb Oral [Active]; Trulicity subcutaneous [Active]; Clonidine Oral [Active]; - PMHx: 09:59 Diabetes - NIDDM; Hypertension; hb - PSHx: 09:59 None; hb - Immunization history:: Adult Immunizations up to date. - Social history:: Smoking status: Patient denies any tobacco usage or history of. ROS: 10:37 Eyes: Negative for injury, pain, redness, and discharge, ENT: Negative for injury, jr8 pain, and discharge, Neck: Negative for injury, pain, and swelling, Cardiovascular: Negative for chest pain, palpitations, and edema, Respiratory: Negative for shortness of breath, cough, wheezing, and pleuritic chest pain, Abdomen/GI: Negative for abdominal pain, nausea, vomiting, diarrhea, and constipation, Back: Negative for injury and pain, MS/Extremity: Negative for injury and deformity, Skin: Negative for injury, rash, and discoloration. 10:37 Neuro: Positive for dizziness, headache, weakness, Negative for altered mental status, loss of consciousness, numbness, seizure activity, speech changes, syncope, near syncope, tingling, tinnitus, tremor, visual changes. Exam: 10:37 Eyes: Pupils equal round and reactive to light, extra-ocular motions intact. Lids and jr8 lashes normal. Conjunctiva and sclera are non-icteric and not injected. Cornea within normal limits. Periorbital areas with no swelling, redness, or edema. ENT: Nares patent. No nasal discharge, no septal abnormalities noted. Tympanic membranes are normal and external auditory canals are clear. Oropharynx with no redness, swelling, or masses, exudates, or evidence of obstruction, uvula midline. Mucous membranes moist. Neck: Trachea midline, no thyromegaly or masses palpated, and no cervical lymphadenopathy. Supple, full range of motion without nuchal rigidity, or vertebral point tenderness. No Meningismus. Cardiovascular: Regular rate and rhythm with a normal S1 and S2. No gallops, murmurs, or rubs. Normal PMI, no JVD. No pulse deficits. Respiratory: Lungs have equal breath sounds bilaterally, clear to auscultation and percussion. No rales, rhonchi or wheezes noted. No increased work of breathing, no retractions or nasal flaring. Abdomen/GI: Soft, non-tender, with normal bowel sounds. No distension or tympany. No guarding or rebound. No evidence of tenderness throughout. Back: No spinal tenderness. No costovertebral tenderness. Full range of motion. Skin: Warm, dry with normal turgor. Normal color with no rashes, no lesions, and no evidence of cellulitis. MS/ Extremity: Pulses equal, no cyanosis. Neurovascular intact. Full, normal range of motion. Neuro: Awake and alert, GCS 15, oriented to person, place, time, and situation. Cranial nerves II-XII grossly intact. Motor strength 5/5 in all extremities. Sensory grossly intact. Cerebellar exam normal. Normal gait. Vital Signs: 09:56 BP 179 / 106; Pulse 79; Resp 16; Temp 98.2; Pulse Ox 99% on R/A; Pain 0/10; hb 10:40 BP 156 / 100; Pulse 68; Resp 18; Pulse Ox 100% on R/A; jr10 11:04 BP 158 / 93; Pulse 65; Resp 18; Pulse Ox 99% on R/A; jr10 11:36 BP 157 / 92; Pulse 70; Resp 18; Pulse Ox 99% on R/A; jr10 12:15 BP 155 / 94; Pulse 62; Resp 18; Pulse Ox 100% on R/A; Pain 2/10; jr10 10:40 will hold hydralazine at this time and continue to monitor BP and medicate as jr10 appropriate MDM: 09:50 Patient medically screened. jr8 11:33 Data reviewed: vital signs, nurses notes, lab test result(s), EKG, radiologic studies, jr8 CT scan. Data interpreted: Pulse oximetry: on room air is 99 %. Interpretation: normal. Counseling: I had a detailed discussion with the patient and/or guardian regarding: the historical points, exam findings, and any diagnostic results supporting the discharge/admit diagnosis, lab results, radiology results, the need for outpatient follow up, a family practitioner, to return to the emergency department if symptoms worsen or persist or if there are any questions or concerns that arise at home. ED course: Patient feeling better. BP naturally declining. Did not require medications at this time. Labs, ECG, and CT head without acute findings. Most likely headache and eye pain was secondary to hypertension that is now resolving. Discussed with him that he needs to f/u and if worse or it spikes again to come back for further treatment . 07/04 10:00 Order name: Basic Metabolic Panel; Complete Time: 11:55 07/04 10:00 Order name: CBC with Diff; Complete Time: 10:40 07/04 10:00 Order name: LFT's; Complete Time: 11:55 07/04 10:00 Order name: PT-INR; Complete Time: 10:53 07/04 10:00 Order name: CT Head Brain wo Cont; Complete Time: 10:32 07/04 10:00 Order name: EKG; Complete Time: 10:07/04 10:00 Order name: Cardiac monitoring; Complete Time: :07/04 10:00 Order name: EKG - Nurse/Tech; Complete Time: 10:23 07/04 10:00 Order name: IV Saline Lock; Complete Time: :07/04 10:00 Order name: Labs collected and sent; Complete Time: 10:23 8 07/04 10:00 Order name: O2 Per Protocol; Complete Time: 10:8 07/04 10:00 Order name: O2 Sat Monitoring; Complete Time: :8 Administered Medications: 11:38 Not Given (parameters not met): hydrALAZINE 10 mg IV at calculated rate once jr10 Disposition: 17:04 Co-signature as Attending Physician, Abdoulaye Larsen MD I agree with the assessment and kdr plan of care. Disposition: 07/04/20 11:55 Discharged to Home. Impression: Hypertensive Urgency . - Condition is Stable. - Discharge Instructions: Hypertension. - Medication Reconciliation Form, Thank You Letter, Antibiotic Education, Prescription Opioid Use form. - Follow up: Private Physician; When: 2 - 3 days; Reason: Recheck today's complaints, Continuance of care, Re-evaluation by your physician. - Problem is new. - Symptoms have improved. Signatures: Dispatcher [employer] EDMS Abdoulaye Larsen MD MD [facility] Nitin Perdomo PA PA jr8 Janeth Brannon, RN RN Nena Gomez RN RN jr10 Corrections: (The following items were deleted from the chart) 12:16 11:55 07/04/2020 11:55 Discharged to Home. Impression: Hypertensive Urgency . Condition jr10 is Stable. Discharge Instructions: Hypertension. Forms are Medication Reconciliation Form, Thank You Letter, Antibiotic Education, Prescription Opioid Use. Follow up: Private Physician; When: 2 - 3 days; Reason: Recheck today's complaints, Continuance of care, Re-evaluation by your physician. Problem is new. Symptoms have improved. jr8
--- NOTE | 2020-07-04 11:56 | ER ---
Nurse's Notes [facility] Name: Krishna Ha Age: 44 yrs Sex: Male : 1975 Arrival Date: 07/04/2020 Time: 09:46 Bed 6 Private MD: Diagnosis: Hypertensive Urgency Presentation: 07/04 09:56 Chief complaint: Headache behind left eye that started at 0500, dizziness x 2 hours, hb and home BP reading 200/120. 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 Coronavirus screen: At this time, the client does not indicate any symptoms associated with coronavirus-19. Ebola Screen: No symptoms or risks identified at this time. Initial Sepsis Screen: Does the patient meet any 2 criteria? No. Patient's initial sepsis screen is negative. Does the patient have a suspected source of infection? No. Patient's initial sepsis screen is negative. Risk Assessment: Do you want to hurt yourself or someone else? Patient reports no desire to harm self or others. Onset of symptoms was July 04, 2020. 09:56 Method Of Arrival: Ambulatory hb 09:56 Acuity: DOMINIQUE 3 hb Historical: - Allergies: 09:59 Ranitidine HCl; hb - Home Meds: 09:59 Glimepiride Oral [Active]; lisinopril-hydrochlorothiazide Oral [Active]; pioglitazone hb Oral [Active]; Trulicity subcutaneous [Active]; Clonidine Oral [Active]; - PMHx: 09:59 Diabetes - NIDDM; Hypertension; hb - PSHx: 09:59 None; hb - Immunization history:: Adult Immunizations up to date. - Social history:: Smoking status: Patient denies any tobacco usage or history of. Screenin:12 Abuse screen: Denies threats or abuse. Denies injuries from another. Nutritional jr10 screening: No deficits noted. Tuberculosis screening: No symptoms or risk factors identified. Fall Risk IV access (20 points). Assessment: 10:09 General: Appears in no apparent distress. Behavior is appropriate for age. Pain: jr10 Complains of pain in left eye Pain does not radiate. Pain currently is 4 out of 10 on a pain scale. Quality of pain is described as sharp, stabbing, Pain began this morning Is continuous, Alleviated by medications, Current management is with Advil. Neuro: Level of Consciousness is awake, alert, obeys commands, Oriented to person, place, time, situation, Appropriate for age Yarn Wrapper are equal bilaterally Moves all extremities. 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 Cardiovascular: No deficits noted. Denies chest pain, Patient's skin is warm and dry. Pulses are all present. Edema is absent. Rhythm is regular. Respiratory: Airway is patent Respiratory effort is even, unlabored, Respiratory pattern is regular, symmetrical, Breath sounds are clear bilaterally. Denies shortness of breath. GI: No deficits noted. No signs and/or symptoms were reported involving the gastrointestinal system. : No deficits noted. No signs and/or symptoms were reported regarding the genitourinary system. EENT: No deficits noted. No signs and/or symptoms were reported regarding the EENT system. Derm: No deficits noted. No signs and/or symptoms reported regarding the dermatologic system. Musculoskeletal: No deficits noted. No signs and/or symptoms reported regarding the musculoskeletal system. Vital Signs: 09:56 BP 179 / 106; Pulse 79; Resp 16; Temp 98.2; Pulse Ox 99% on R/A; Pain 0/10; hb 10:40 BP 156 / 100; Pulse 68; Resp 18; Pulse Ox 100% on R/A; jr10 11:04 BP 158 / 93; Pulse 65; Resp 18; Pulse Ox 99% on R/A; jr10 11:36 BP 157 / 92; Pulse 70; Resp 18; Pulse Ox 99% on R/A; jr10 12:15 BP 155 / 94; Pulse 62; Resp 18; Pulse Ox 100% on R/A; Pain 2/10; jr10 10:40 will hold hydralazine at this time and continue to monitor BP and medicate as jr10 appropriate ED Course: 09:46 Patient arrived in ED. mr 09:50 Nitin Perdomo PA is PHCP. jr8 09:50 Abdoulaye Larsen MD is Attending Physician. jr8 09:58 Triage completed. hb 09:59 Arm band placed on. hb 10:03 Gomez, Nena, RN is Primary Nurse. jr10 10:12 Patient has correct armband on for positive identification. Bed in low position. Call jr10 light in reach. Side rails up X2. cardiac monitor technician on. Pulse ox on. NIBP on. 10:18 No provider procedures requiring assistance completed. Inserted saline lock: 20 gauge jr10 in right forearm, using aseptic technique. ,using aseptic technique. started via nursing aide Blood collected. IV is patent, is intact, with good blood return, Flushed. 10:22 CT Head Brain wo Cont In Process Unspecified. EDMS 12:16 IV discontinued, intact, bleeding controlled, No redness/swelling at site. Pressure jr10 dressing applied. Administered Medications: 11:38 Not Given (parameters not met): hydrALAZINE 10 mg IV at calculated rate once jr10 Outcome: 11:55 Discharge ordered by MD. jr8 12:16 Discharged to home ambulatory. jr10 12:16 Condition: improved 12:16 Discharge instructions given to patient, Instructed on discharge instructions, follow up and referral plans. Demonstrated understanding of instructions, follow-up care. 12:16 Patient left the ED. jr10 Signatures: Dispatcher [employer] EDMI Bee Gomez mr PerdomoNitin PA PA jr8 Janeth Brannon, Nena Rubio RN, RN RN jr10
--- NOTE | 2020-07-05 11:14 | EKG ---
Test Date: 2020-07-04 Test Time: 10:16:40 Jackhammer Operator: CAROLINE MEASUREMENT RESULTS: Intervals: Rate: 65 OK: 158 QRSD: 90 QT: 410 QTc: 426 Martin: P: 44 OK: 158 QRS: -15 T: 80 INTERPRETIVE STATEMENTS: Normal sinus rhythm RSR' or QR pattern in V1 suggests right ventricular conduction delay Nonspecific T wave abnormality Abnormal ECG Compared to ECG 12/28/2019 23:27:45 RSR' in V1 or V2 now present Incomplete right bundle-branch block no longer present T-wave abnormality still present Electronically Signed On 07-05-20 11:10:30 CDT by Bhupinder Santamaria
[2020-07-06 06:02] VITALS: TEMP 98.2
[2020-07-06 06:07] VITALS: BP 155/94; O2SAT 100
== END 2020-07-04 12:16 | disposition home or self-care (01) ==
LOC: ER 09:44
DX: I16.0 Hypertensive urgency (principal); I10 Essential (primary) hypertension; E11.9 Type 2 diabetes mellitus without complications; Z79.4 Long term (current) use of insulin; Z88.8 Allergy status to other drugs, medicaments and biological substances
CPT/HCPCS: 36415; 70450; 80048; 80076; 85025; 85610; 93005; 99284; J0360

== ENCOUNTER 2023-09-09 23:25 | Emergency (ER) | payer OTHER ==
--- OUTSIDE RECORDS SUMMARY | 2023-09-09 23:30 | XMS REPORT | Continuity of Care Document ---
:1975 Author Organization [facility] t Address [address] [place] [address] [place] [id number] Care Team Providers Name Role Phone Barb Prakash Primary Care Physician Unavailable Reena Diane MA Attending Clinician Unavailable Luis GARCIA, Nevaeh Beltran Attending Clinician [phone] Ellen Howard MD Attending Clinician Christopher Attending Clinician Unavailable Doreen Brown MA Attending Clinician Unavailable ISHAN_Minh Attending Clinician Unavailable Natacha Fuentes Attending Clinician NATACHA HALE Attending Clinician Unavailable Doctor Unassigned, Chamberino Attending Clinician Unavailable Elba Juarez Attending Clinician [phone] Libby Loco Attending Clinician [phone] REINA FREY Attending Clinician Unavailable Christopher Admitting Clinician Unavailable DEIDRE Admitting Clinician Unavailable Payers Payer Name Policy Type Policy Number Effective Date Expiration Date Jeffery baron [employer] [id number] (PPO) [employer] [id number] 2021 00:00:00 Problems Condition Condition Condition Status Onset Resolution Last Treating Co mments Source Name Details Category Date Date Treatment Clinician Date Stage 4 Stage 4 Disease Active [facility] chronic chronic 5 st kidney kidney 00:00: Hospita disease disease 00 l Type 2 Type 2 Disease Active [facility] diabetes diabetes 5-04 st mellitus mellitus 00:00: Hospit a with with 00 l microalbum microalbum inuria, inuria, without without long-term long-term current current use of use of insulin insulin Primary Primary Disease Active [facility] hypertensi hypertensi 03-04 st on on 00:00: Hospita 00 l Mixed Mixed Disease Active [facility] hyperlipid hyperlipid 04 st emia emia 00:00: Hospita 00 l Obesity Obesity Problem Active [facility] 3-14 Family 00:00: Practic 00 e 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 Deficiency 00:00: Pr actic disorder Disorder 00 e Vitamin D Vitamin D Problem Active 2020-11 Jun stephens deficiency Deficiency 1-08 [facility] 00:00: Practic 00 e Anemia Anemia Problem Active 2020-11 [facility] 1-08 Family 00:00: Practic 00 e Chronic Chronic Problem Active 2020-11 [facility] kidney Kidney 08 Family disease Disease 00:00: Practic stage 3 Stage 3 00 e Proteinuri Proteinuri Problem Active 2020-11 [facility] 1-08 Family 00:00: Practic 00 e Type 2 Type 2 Problem Active [facility] diabetes Diabetes 8-09 Family mellitus Mellitus 00:00: Practi c 00 e Body mass Body Mass Problem Active Jun stephens index 30+ Index 30+ 8-09 Fami ly - obesity - Obesity 00:00: Prac tic 00 e Primary Primary Problem Active [facility] erectile Erectile 809 Family dysfunctio Dysfunctio 00:00: Pr actic n n 00 e 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 Diabetes mellitus Mellitus Long-term Long-term Problem Active [facility] 3-31 [facility] therapy Therapy 00:00: ty 00 Hospita l Clinics Type 2 Type 2 Problem Active [facility] diabetes Diabetes 9-17 Family mellitus Mellitus 00:00: Practi c without without 00 e complicati Complicati on on Hyperlipid Hyperlipid Problem Active [facility] emia emia 9-17 Family 00:00: Practic 00 e Anxiety Anxiety Problem Active [facility] 9-17 Family 00:00: Practic 00 e Essential Essential Problem Active Jun [facility] hypertensi Hypertensi 9-17 Fa [facility]i on on 00:00: Practic 00 e Daytime Daytime Problem Active [facility] somnolence Somnolence 5-14 [facility]i 00:00: ty 00 Hospita l Clinics Snoring Snoring Problem Active [facility] 5-14 [facility] 00:00: ty 00 Hospita l Clinics Asthma Asthma Problem Active [facility] 3-25 [facility] 00:00: ty 00 Hospita l Clinics Diabetes Diabetes Problem Active [facility] mellitus Mellitus 3-04 Commun i 00:00: ty 00 Hospita l Clinics Hypertensi Hypertensi Problem Active S weeny ve ve 3-04 Communi disorder Disorder 00:00: ty 00 Hospita l Clinics Impotence Impotence Problem Active Jun angelo of organic of Organic 1-21 Fa remi origin Origin 00:00: Practic 00 e Hypertensi Hypertensi Problem Active 2016-11 [facility] ve ve -08 Family disorder Disorder 00:00: Practi c 00 e Clinical Clinical Problem Active 2016-11 [facility] ge finding Finding 08 Family 00:00: Practic 00 e Obese Obese Problem Active 2016-11 [facility] class I Class I 08 Family 00:00: Practic 00 e No known No known Disease Unive rs active active ity of problems problems [facility] Allergies, Adverse Reactions, Alerts Allergy Allergy Status Severity Reaction(s) Onset Inactive Treating Comm ents Source Name Type Date Date Clinician Ranitidi Propensi Active Rash [facility] i ne ty to 04-02 st adverse 00:00: Hospita reaction 00 l s to drug RANITIDI Allergy Active [place] HCL to Family substanc Practic e e NO KNOWN Drug Active Univers ALLERGIE Class ity of S [facility] Ranitidi Allergy Active Moderate Hives Sween y ne to to severe Communi substanc ty e Hospita l Clinics Family History Family Member Diagnosis Comments Start Date Stop Date Source [facility] brother Heart disease Method [facility] Natural father Diabetes [facility] mother Diabetes [facility] Natural mother Hyperlipidemia Method [facility] Natural mother Hypertension [facility] Natural sister Diabetes [facility] Social History Social Habit Start Date Stop Date Quantity Comments Source History of tobacco Smokes tobacco Me thodist use daily Hospital Sexual orientation Method [facility] Alcohol intake 2023-08-30 2023-08-30 Lifetime Buddhism 00:00:00 00:00:00 non-drinker Hospital (finding) History of Social 2023-08-30 2023-08-[address] function 00:00:00 00:00:00 Hospital Cigarettes smoked 2023-03-04 2023-03-[address] current (pack per 00:00:00 00:00:00 Hospita l day) - Reported Tobacco use and 2023-03-04 2023-03-04 Smokeless Buddhism exposure 00:00:00 00:00:00 tobacco non-user Hospital Exposure to 2022-07-30 2022-08-09 Not sure University SARS-CoV-2 (event) 00:00:00 10:36:00 [facility] Sex Ass[birth year] At [birth year] Buddhism 00:00:00 00:00:00 Hospital Smoking Status Start Date Stop Date Source Tobacco smoking consumption Univ [facility] Heavy Tobacco Smoker [facility] Practice Smokes tobacco daily 2023-03-04 00:00:00 [facility] Medications Ordered Filled Start Stop Current Ordering Indication Dosage Frequency Signature Comments Components Source Medication Medication Date Date Medication? Clinician (SIG) Name Name zhen 2022-11- No [id number] 80mg QD Take 1 [facility] n (LIPITOR) 0-30 10-30 tablet (80 s t 80 MG 14:33: 00:00 mg total) Hospit a tablet 49 :00 by mouth l nightly. tirzepatide 2022-11 Yes [id number] 5mg Q7D Inject 0.5 [facility] (Mounjaro) 0-30 mL ([address] 5 mg/0.5 mL 14:17: total) Hosp shaina pen 34 under the l injector skin once a week. clonIDINE 2022-11 Yes [id number] .1mg Q.5D Take 1 Me thodi (CATAPRES) 0-[address] 0.1 MG 14:17: (0.1 mg Hospita tablet 34 total) by l mouth 2 (two) times a day as needed for high blood pressure. atorvastati 2022-11 Yes [id number] 80mg QD Take 1 [facility] n (LIPITOR) 0-30 tablet (80 st 80 MG 00:00: mg total) Hospita tablet 00 by mouth l nightly. chlorthalid 2022-11 Yes [id number] 25mg QD Take 1 [facility] one 0-30 tablet (25 st (HYGROTEN) 00:00: mg total) Ho spita 25 MG 00 by mouth l tablet daily. diltiazem 2022-11 Yes [id number] 420mg QD Take 1 M ethodi (TIAZAC) 0-[address] 420 MG 24 00:00: (420 mg Hospi ta hr capsule 00 total) by l mouth daily. ramipriL 2022-11 Yes [id number] 10mg QD Take 1 Met hodi (ALTACE) 10 0-[address] MG capsule 00:00: (10 mg Hospi ta 00 total) by l mouth daily. ramipriL 2022- No [id number] Take 1 Me [facility] (ALTACE) 10 9-15 10-30 capsule by s t MG capsule 00:00: 00:00 mouth once Hospita 00 :00 daily l chlorthalid 2022- No [id number] Take 1 [facility] one 8-09 10-[address] (HYGROTEN) 00:00: 00:00 mouth once Hospita 25 MG 00 :00 daily l tablet ramipriL 2022- No [id number] Take 1 Me [facility]odi (ALTACE) 10 8 09-15 capsule by s t MG capsule 00:00: 00:00 mouth once Hospita 00 :00 daily l chlorthalid 2022-0 2022- No [id number] Take 1 [facility] one 7- 08-[address] (HYGROTEN) 00:00: 00:00 mouth once Hospita 25 MG 00 :00 daily l tablet ramipriL 2022-0 2022- No [id number] Take 1 Me [facility]odi (ALTACE) 10 7- 08-09 capsule by s t MG capsule 00:00: 00:00 mouth once Hospita 00 :00 daily l ramipriL 2022-0 2022- No [id number] Take 1 Me thodi (ALTACE) 10 6- 07-03 capsule by s t MG capsule 00:00: 00:00 mouth once Hospita 00 :00 daily l chlorthalid 2022-0 2023- No [id number] Take 1 [facility] one 04-02 07-[address] (HYGROTEN) 00:00: 00:00 mouth once Hospita 25 MG 00 :00 daily l tablet ramipriL 2022- No [id number] 10mg QD Take 1 Me [facility] (Altace) 10 03-04 06- capsule st MG capsule 00:00: 00:00 (10 mg Hosp shaina 00 :00 total) by l mouth daily. chlorthalid 2022- No [id number] 25mg QD Take 1 [facility] one 03-04- tablet (25 st (HYGROTEN) 00:00: 00:00 mg total) H ospita 25 MG 00 :00 by mouth l tablet daily. diltiazem 2022- No [id number] 420mg QD Take 1 [facility] (TIAZAC) 02-05 10-[address] 420 MG 24 00:00: 00:00 (420 mg Hosp shaina hr capsule 00 :00 total) by l mouth daily. FreeStyle Yes [id number] USE Me thodi Isabell 3 -[address] Sensor 00:00: DAILY, Hospita device 00 CHANGE l SENSOR EVERY 14 DAYS ramipriL 10 2021-11 Yes 10mg Take 10 mg Univers mg capsule 0-09 by mouth ity o f 10:54: in the [place] [address] morning. [facility] dulaglutide 2021-11 Yes inject Univ ers (TRULICITY) 0-09 under the ity of 3 mg/0.5 mL 10:54: skin. [place] [address] [facility] GLIPIZIDE 2021-11 Yes Take by Unive rs ORAL 0-09 mouth. ity of 10:54: [place] [address] [facility] DILTIAZEM 2021-11 Yes Take by Unive rs HCL ORAL 0-09 mouth. ity of 10:54: [place] [address] [facility] pioglitazon Yes [id number] 15mg QD Take 1 Methodi e (ACTOS) 5-27 tablet (15 st 15 MG 00:00: mg total) Hospita tablet 00 by mouth l daily. glimepiride Yes [id number] 4mg QD Take 1 [facility] (AMARYL) 4 5-27 tablet (4 st MG tablet 00:00: mg total) Hos tiff 00 by mouth l daily before breakfast. ramipriL 2020-0 2022- No 5mg QD Take 1 Method i (ALTACE) 5 5-20 05-04 capsule (5 st MG capsule 00:00: 00:00 mg total) H ospita 00 :00 by mouth l daily. atorvastati atorvastati No 1 Q1D atorvastat [facility] n 20 mg n 20 mg in 20 mg Commu ni tablet Take tablet Take tablet ty 1 tablet 1 tablet Take 1 Hospi ta every day every day tablet l by oral by oral every day Clin ics route. route. by oral route. clonidine clonidine No clonidine [facility] HCl 0.1 mg HCl 0.1 mg HCl 0.1 mg [facility]i tablet take tablet take tablet ty on tablet on tablet take on Ho spita every 6 every 6 tablet l hours if bp hours if bp every 6 Clinics is greater is greater hours if than than bp is 150/100 150/100 greater than 150/100 diltiazem diltiazem No 1capsul Q1D diltiazem [facility] CD 240 mg CD 240 mg e(s) CD 240 mg Communi capsule,ext capsule,ext capsule,ex ty ended ended tended Hospita release 24 release 24 release 24 l hr Take 1 hr Take 1 hr Take 1 Clinics capsule capsule capsule every day every day every day by oral by oral by oral route. route. route. Enteric Enteric No 1 Q1D Enteric [facility] Aspirin 81 Aspirin 81 Aspirin 81 ty mg mg mg Hospita tablet,kyler tablet,kyler tablet,del l yed release yed release ayed C linics Take 1 Take 1 release tablet tablet Take 1 every day every day tablet by oral by oral every day route. route. by oral route. glimepiride glimepiride No 1 Q1D glimepirid [facility] 4 mg tablet 4 mg tablet e 4 mg Communi Take 1 Take 1 tablet ty tablet tablet Take 1 Hospita every day every day tablet l by oral by oral every day Clin ics route. route. by oral route. hydrochloro hydrochloro No 1 Q1D hydrochlor [facility] thiazide 25 thiazide 25 othiazide Communi mg tablet mg tablet 25 mg ty Take 1 Take 1 tablet Hospita tablet tablet Take 1 l every day every day tablet Cli nics by oral by oral every day route for route for by oral 30 days. 30 days. route for 30 days. pioglitazon pioglitazon No 1 Q1D pioglitazo [facility] e 15 mg e 15 mg ne 15 mg Commu ni tablet Take tablet Take tablet ty 1 tablet 1 tablet Take 1 Hospi ta every day every day tablet l by oral by oral every day Clin ics route. route. by oral route. ramipril 5 ramipril 5 No ramipril 5 [facility] mg capsule mg capsule mg capsule Communi Take 1 Take 1 Take 1 ty capsule by capsule by capsule by Hospita mouth twice mouth twice mouth l daily daily twice Clinics daily atorvastati atorvastati No 1 Q1D atorvastat [facility] n 20 mg n 20 mg in 20 mg Commu ni tablet Take tablet Take tablet ty 1 tablet 1 tablet Take 1 Hospi ta every day every day tablet l by oral by oral every day Clin ics route. route. by oral route. clonidine clonidine No clonidine [facility] HCl 0.1 mg HCl 0.1 mg HCl 0.1 mg [facility]i tablet take tablet take tablet ty on tablet on tablet take on Ho spita every 6 every 6 tablet l hours if bp hours if bp every 6 Clinics is greater is greater hours if than than bp is 150/100 150/100 greater than 150/100 diltiazem diltiazem No 1capsul Q1D diltiazem [facility] CD 240 mg CD 240 mg e(s) CD 240 mg [facility]i capsule,ext capsule,ext capsule,ex ty ended ended tended Hospita release 24 release 24 release 24 l hr Take 1 hr Take 1 hr Take 1 Clinics capsule capsule capsule every day every day every day by oral by oral by oral route. route. route. diltiazem diltiazem No 1capsul Q1D diltiazem [facility] CD 360 mg CD 360 mg e(s) CD 360 mg [facility]i capsule,ext capsule,ext capsule,ex ty ended ended tended Hospita release 24 release 24 release 24 l hr Take 1 hr Take 1 hr Take 1 Clinics capsule capsule capsule every day every day every day by oral by oral by oral route. route. route. Enteric Enteric No 1 Q1D Enteric [facility] Aspirin 81 Aspirin 81 Aspirin 81 ty mg mg mg Hospita tablet,kyler tablet,kyler tablet,del l yed release yed release ayed C linics Take 1 Take 1 release tablet tablet Take 1 every day every day tablet by oral by oral every day route. route. by oral route. glimepiride glimepiride No 1 Q1D glimepirid [facility] 4 mg tablet 4 mg tablet e 4 mg Communi Take 1 Take 1 tablet ty tablet tablet Take 1 Hospita every day every day tablet l by oral by oral every day Clin ics route. route. by oral route. hydrochloro hydrochloro No 1 Q1D hydrochlor [facility] thiazide 25 thiazide 25 othiazide Communi mg tablet mg tablet 25 mg ty Take 1 Take 1 tablet Hospita tablet tablet Take 1 l every day every day tablet Cli nics by oral by oral every day route for route for by oral 30 days. 30 days. route for 30 days. pioglitazon pioglitazon No 1 Q1D pioglitazo [facility] e 15 mg e 15 mg ne 15 mg Commu ni tablet Take tablet Take tablet ty 1 tablet 1 tablet Take 1 Hospi ta every day every day tablet l by oral by oral every day Clin ics route. route. by oral route. ramipril 5 ramipril 5 No ramipril 5 [facility] mg capsule mg capsule mg capsule [facility] Take 1 Take 1 Take 1 ty capsule by capsule by capsule by Hospita mouth twice mouth twice mouth l daily daily twice Clinics daily atorvastati atorvastati No atorvastat [facility] n 80 mg n 80 mg in 80 mg Commu ni tablet Take tablet Take tablet ty 1 tablet by 1 tablet by Take 1 Hospita mouth once mouth once tablet by l daily daily mouth once Clinics daily clonidine clonidine No clonidine [facility] HCl 0.1 mg HCl 0.1 mg HCl 0.1 mg [facility]i tablet take tablet take tablet ty on tablet on tablet take on Ho spita every 6 every 6 tablet l hours if bp hours if bp every 6 Clinics is greater is greater hours if than than bp is 150/100 150/100 greater than 150/100 diltiazem diltiazem No 1capsul Q1D diltiazem [facility] ER 420 mg ER 420 mg e(s) ER 420 mg [facility]i capsule,24 capsule,24 capsule,24 ty hr,extended hr,extended hr,extende Hospita release release d release l Take 1 Take 1 Take 1 Clinics capsule capsule capsule every day every day every day by oral by oral by oral route. route. route. Enteric Enteric No 1 Q1D Enteric [facility] Aspirin 81 Aspirin 81 Aspirin 81 ty mg mg mg Hospita tablet,kyler tablet,kyler tablet,del l yed release yed release ayed C linics Take 1 Take 1 release tablet tablet Take 1 every day every day tablet by oral by oral every day route. route. by oral route. ergocalcife ergocalcife No 1capsul Q1W ergocalcif [facility] rol rol e(s) eleanor Communi (vitamin (vitamin (vitamin ty D2) 1,250 D2) 1,250 D2) 1,250 Hospita mcg (50,000 mcg (50,000 mcg l unit) unit) (50,000 Clinics capsule capsule unit) Take 1 Take 1 capsule capsule capsule Take 1 every week every week capsule by oral by oral every week route. route. by oral route. glimepiride glimepiride No 1 BID glimepirid [facility] 4 mg tablet 4 mg tablet e 4 mg Communi Take 1 Take 1 tablet ty tablet tablet Take 1 Hospita twice a day twice a day tablet l by oral by oral twice a Clinic s route for route for day by 30 days. 30 days. oral route for 30 days. hydrochloro hydrochloro No 1 Q1D hydrochlor [facility] thiazide 25 thiazide 25 othiazide Communi mg tablet mg tablet 25 mg ty Take 1 Take 1 tablet Hospita tablet tablet Take 1 l every day every day tablet Cli nics by oral by oral every day route for route for by oral 30 days. 30 days. route for 30 days. pioglitazon pioglitazon No 1 Q1D pioglitazo [facility] e 15 mg e 15 mg ne 15 mg Commu ni tablet Take tablet Take tablet ty 1 tablet 1 tablet Take 1 Hospi ta every day every day tablet l by oral by oral every day Clin ics route. route. by oral route. promethazin promethazin No 5mL Q7H promethazi [facility] e-DM 6.25 e-DM 6.25 ne-DM 6.25 Communi mg-15 mg/5 mg-15 mg/5 mg-15 mg/5 ty mL oral mL oral mL oral Hospit a syrup Take syrup Take syrup Take l 5 mL every 5 mL every 5 mL every Clinics 6-8 hours 6-8 hours 6-8 hours by oral by oral by oral route as route as route as needed. needed. needed. ramipril 5 ramipril 5 No ramipril 5 [facility] mg capsule mg capsule mg capsule [facility]i Take 1 Take 1 Take 1 ty capsule by capsule by capsule by Hospita mouth twice mouth twice mouth l daily daily twice Clinics daily albuterol albuterol No 3mL TID albuterol [facility] sulfate 2.5 sulfate 2.5 sulfate Communi mg/3 mL mg/3 mL 2.5 mg/3 ty (0.083 %) (0.083 %) mL (0.083 Hospita solution solution %) l for for solution Clinics nebulizatio nebulizatio for n Inhale 3 n Inhale 3 nebulizati mL 3 times mL 3 times on Inhale a day by a day by 3 mL 3 nebulizatio nebulizatio times a n route as n route as day by needed. needed. nebulizati on route as needed. amlodipine amlodipine No 1 Q1D amlodipine [facility] 10 mg 10 mg 10 mg Communi tablet Take tablet Take tablet ty 1 tablet 1 tablet Take 1 Hospi ta every day every day tablet l by oral by oral every day Clin ics route. route. by oral route. Catapres-TT Catapres-TT No 1patch( Q1W Catapres-T [facility] S-1 0.1 S-1 0.1 es) TS-1 0.1 Commu ni mg/24 hr mg/24 hr mg/24 hr ty transdermal transdermal transderma Hospita patch Apply patch Apply l patch l 1 patch 1 patch Apply 1 Clinic s every week every week patch by by every week transdermal transdermal by route. route. transderma l route. clonidine clonidine No clonidine [facility] HCl 0.1 mg HCl 0.1 mg HCl 0.1 mg Communi tablet take tablet take tablet ty on tablet on tablet take on Ho spita every 6 every 6 tablet l hours if bp hours if bp every 6 Clinics is greater is greater hours if than than bp is 150/100 150/100 greater than 150/100 glimepiride glimepiride No 1 Q1D glimepirid [facility] 4 mg tablet 4 mg tablet e 4 mg Communi Take 1 Take 1 tablet ty tablet tablet Take 1 Hospita every day every day tablet l by oral by oral every day Clin ics route. route. by oral route. hydrochloro hydrochloro No 1 Q1D hydrochlor [facility] thiazide 25 thiazide 25 othiazide Communi mg tablet mg tablet 25 mg ty Take 1 Take 1 tablet Hospita tablet tablet Take 1 l every day every day tablet Cli nics by oral by oral every day route for route for by oral 30 days. 30 days. route for 30 days. irbesartan irbesartan No irbesartan [facility] 300 mg 300 mg 300 mg [facility]i tablet TAKE tablet TAKE tablet ty 1 TABLET BY 1 TABLET BY TAKE 1 Hospita MOUTH EVERY MOUTH EVERY TABLET BY l DAY DAY MOUTH Clinics EVERY DAY pioglitazon pioglitazon No 1 Q1D pioglitazo [facility] e 15 mg e 15 mg ne 15 mg Commu ni tablet Take tablet Take tablet ty 1 tablet 1 tablet Take 1 Hospi ta every day every day tablet l by oral by oral every day Clin ics route. route. by oral route. ProAir HFA ProAir HFA No 2puff(s Q4H ProAir HFA [facility] 90 90 ) 90 Communi mcg/actuati mcg/actuati mcg/actuat ty on aerosol on aerosol ion Hos tiff inhaler inhaler aerosol l Inhale 2 Inhale 2 inhaler Clin ics puffs every puffs every Inhale 2 4 hours by 4 hours by puffs inhalation inhalation every 4 route as route as hours by needed. needed. inhalation route as needed. acetaminoph acetaminoph No 1 Q1D acetaminop [facility] en 300 en 300 hen 300 Communi mg-codeine mg-codeine mg-codeine ty 30 mg 30 mg 30 mg Hospita tablet Take tablet Take tablet l 1 tablet 1 tablet Take 1 Clini cs every day every day tablet by oral by oral every day route at route at by oral bedtime. bedtime. route at bedtime. albuterol albuterol No 3mL TID albuterol [facility] sulfate 2.5 sulfate 2.5 sulfate Communi mg/3 mL mg/3 mL 2.5 mg/3 ty (0.083 %) (0.083 %) mL (0.083 Hospita solution solution %) l for for solution Clinics nebulizatio nebulizatio for n Inhale 3 n Inhale 3 nebulizati mL 3 times mL 3 times on Inhale a day by a day by 3 mL 3 nebulizatio nebulizatio times a n route as n route as day by needed. needed. nebulizati on route as needed. albuterol albuterol No 2puff(s Q4H albuterol [facility] sulfate HFA sulfate HFA ) sulfate [facility] 90 90 HFA 90 ty mcg/actuati mcg/actuati mcg/actuat Hospita on aerosol on aerosol ion l inhaler inhaler aerosol Clinic s Inhale 2 Inhale 2 inhaler puffs every puffs every Inhale 2 4 hours by 4 hours by puffs inhalation inhalation every 4 route as route as hours by needed. needed. inhalation route as needed. amlodipine amlodipine No 1 Q1D amlodipine [facility] 10 mg 10 mg 10 mg [facility]i tablet Take tablet Take tablet ty 1 tablet 1 tablet Take 1 Hospi ta every day every day tablet l by oral by oral every day Clin ics route. route. by oral route. atorvastati atorvastati No 1 Q1D atorvastat [facility] n 20 mg n 20 mg in 20 mg Commu ni tablet Take tablet Take tablet ty 1 tablet 1 tablet Take 1 Hospi ta every day every day tablet l by oral by oral every day Clin ics route. route. by oral route. azithromyci azithromyci No azithromyc [facility] n 250 mg n 250 mg in 250 mg Co mmuni tablet TAKE tablet TAKE tablet ty 2 TABLETS 2 TABLETS TAKE 2 Hos tiff (500 MG) BY (500 MG) BY TABLETS l ORAL ROUTE ORAL ROUTE (500 MG) Clinics ONCE DAILY ONCE DAILY BY ORAL FOR 1 DAY FOR 1 DAY ROUTE ONCE THEN 1 THEN 1 DAILY FOR TABLET (250 TABLET (250 1 DAY THEN MG) BY ORAL MG) BY ORAL 1 TABLET ROUTE ONCE ROUTE ONCE (250 MG) DAILY FOR 4 DAILY FOR 4 BY ORAL DAYS DAYS ROUTE ONCE DAILY FOR 4 DAYS budesonide budesonide No 2mL BID budesonide [facility] 0.5 mg/2 mL 0.5 mg/2 mL 0.5 mg/2 Communi suspension suspension mL ty for for suspension Hospita nebulizatio nebulizatio for l n Inhale 2 n Inhale 2 nebulizati Clinics mL twice a mL twice a on Inhale day by day by 2 mL twice nebulizatio nebulizatio a day by n route for n route for nebulizati 14 days. 14 days. on route for 14 days. cholecalcif cholecalcif No 1capsul Q1W cholecalci [facility] eleanor eleanor e(s) ferol Communi (vitamin (vitamin (vitamin ty D3) 1,250 D3) 1,250 D3) 1,250 Hospita mcg (50,000 mcg (50,000 mcg l unit) unit) (50,000 Clinics capsule capsule unit) Take 1 Take 1 capsule capsule capsule Take 1 every week every week capsule by oral by oral every week route. route. by oral route. clonidine clonidine No clonidine [facility] HCl 0.1 mg HCl 0.1 mg HCl 0.1 mg Communi tablet take tablet take tablet ty on tablet on tablet take on [facility] every 6 every 6 tablet l hours if bp hours if bp every 6 Clinics is greater is greater hours if than than bp is 150/100 150/100 greater than 150/100 Enteric Enteric No 1 Q1D [facility] Aspirin 81 Aspirin 81 Aspirin 81 ty mg mg mg Hospita tablet,kyler tablet,kyler tablet,del l yed release yed release ayed C linics Take 1 Take 1 release tablet tablet Take 1 every day every day tablet by oral by oral every day route. route. by oral route. glimepiride glimepiride No 1 Q1D glimepirid [facility] 4 mg tablet 4 mg tablet e 4 mg Communi Take 1 Take 1 tablet ty tablet tablet Take 1 Hospita every day every day tablet l by oral by oral every day Clin ics route. route. by oral route. hydrochloro hydrochloro No 1 Q1D hydrochlor [facility] thiazide 25 thiazide 25 othiazide Communi mg tablet mg tablet 25 mg ty Take 1 Take 1 tablet Hospita tablet tablet Take 1 l every day every day tablet Cli nics by oral by oral every day route for route for by oral 30 days. 30 days. route for 30 days. irbesartan irbesartan No irbesartan [facility] 300 mg 300 mg 300 mg Communi tablet TAKE tablet TAKE tablet ty 1 TABLET BY 1 TABLET BY TAKE 1 Hospita MOUTH EVERY MOUTH EVERY TABLET BY l DAY DAY MOUTH Clinics EVERY DAY ivermectin ivermectin No 2 BID ivermectin [facility] 3 mg tablet 3 mg tablet 3 mg C ommuni Take 2 Take 2 tablet ty tablets tablets Take 2 Hospita twice a day twice a day tablets l by oral by oral twice a Clinic s route. route. day by oral route. levalbutero levalbutero No 3mL Q8H levalbuter [facility] l 1.25 mg/3 l 1.25 mg/3 ol 1.25 Communi mL solution mL solution mg/3 mL ty for for solution Hospita nebulizatio nebulizatio for l n Inhale 3 n Inhale 3 nebulizati Clinics mL every 8 mL every 8 on Inhale hours by hours by 3 mL every nebulizatio nebulizatio 8 hours by n route. n route. nebulizati on route. pioglitazon pioglitazon No 1 Q1D pioglitazo [facility] e 15 mg e 15 mg ne 15 mg Commu ni tablet Take tablet Take tablet ty 1 tablet 1 tablet Take 1 Hospi ta every day every day tablet l by oral by oral every day Clin ics route. route. by oral route. prednisone prednisone No 1 BID prednisone [facility] 20 mg 20 mg 20 mg Communi tablet Take tablet Take tablet ty 1 tablet 1 tablet Take 1 Hospi ta twice a day twice a day tablet l by oral by oral twice a Clinic s route for 5 route for 5 day by days. days. oral route for 5 days. ramipril ramipril No 1capsul BID ramipril [facility] 2.5 mg 2.5 mg e(s) 2.5 mg Communi capsule capsule capsule ty Take 1 Take 1 Take 1 Hospita capsule capsule capsule l twice a day twice a day twice a Clinics by oral by oral day by route for route for oral route 14 days. 14 days. for 14 days. ramipril 5 ramipril 5 No ramipril 5 [facility] mg capsule mg capsule mg capsule Communi Take 1 Take 1 Take 1 ty capsule by capsule by capsule by Hospita mouth twice mouth twice mouth l daily daily twice Clinics daily atorvastati atorvastati No atorvastat [place] n 20 mg n 20 mg in 20 mg Famil y tablet TAKE tablet TAKE tablet Practic 1 TABLET BY 1 TABLET BY TAKE 1 e MOUTH ONCE MOUTH ONCE TABLET BY DAILY DAILY MOUTH ONCE DAILY clonidine clonidine No clonidine [facility] HCl 0.1 mg HCl 0.1 mg HCl 0.1 mg Family tablet tablet tablet Practic e [facility] Dexcom G6 No [address] Sensor Sensor Sensor Family device device device Practic e [place] [id number] Dexcom No [address] Transmitter Transmitter Transmitte Family device device r device Practic e Fr[place] 10 [facility] 10 [facility] mg tablet mg tablet mg tablet Family Take 1 Take 1 Take 1 Practic tablet tablet tablet e every day every day every day by oral by oral by oral route in route in route in the the the morning. morning. morning. Fish Oil Fish Oil No 2capsul Q1D Fish Oil [facility] 1,200 mg 1,200 mg e(s) 1,200 mg Fam zane (144 mg-216 (144 mg-216 (144 P ractic mg) capsule mg) capsule mg-216 mg) e Take 2 Take 2 capsule capsules capsules Take 2 every day every day capsules by oral by oral every day route in route in by oral the the route in morning. morning. the morning. Flax Seed Flax Seed No 2capsul Q1D Flax Seed [facility] Oil 1,000 Oil 1,000 e(s) Oil 1,000 Family mg capsule mg capsule mg capsule Practic Take 2 Take 2 Take 2 e capsules capsules capsules every day every day every day by oral by oral by oral route in route in route in the the the morning. morning. morning. glimepiride glimepiride No glimepirid [facility] 4 mg tablet 4 mg tablet e 4 mg Family TAKE 1 TAKE 1 tablet Practic TABLET BY TABLET BY TAKE 1 e MOUTH TWICE MOUTH TWICE TABLET BY DAILY DAILY MOUTH BEFORE BEFORE TWICE MEAL(S) MEAL(S) DAILY BEFORE MEAL(S) hydrochloro hydrochloro No hydrochlor [facility] thiazide 25 thiazide 25 othiazide Family mg tablet mg tablet 25 mg Prac tic TAKE 1 TAKE 1 tablet e TABLET BY TABLET BY TAKE 1 MOUTH ONCE MOUTH ONCE TABLET BY DAILY FOR DAILY FOR MOUTH ONCE 30 DAYS 30 DAYS DAILY FOR 30 DAYS irbesartan irbesartan No irbesartan [facility] 300 mg 300 mg 300 mg Family tablet tablet tablet Practic e phentermine phentermine No 1 Q1D phentermin [facility] 37.5 mg 37.5 mg e 37.5 mg Fami ly tablet Take tablet Take tablet Practic 1 tablet 1 tablet Take 1 e every day every day tablet by oral by oral every day route in route in by oral the morning the morning route in for 30 for 30 the days. days. morning for 30 days. pioglitazon pioglitazon No 1 Q1D pioglitazo [place] e 15 mg e 15 mg ne 15 mg Famil y tablet Take tablet Take tablet Practic 1 tablet 1 tablet Take 1 e every day every day tablet by oral by oral every day route route by oral before before route meals for meals for before 90 days. 90 days. meals for 90 days. ramipril 5 ramipril 5 No ramipril 5 [facility] mg capsule mg capsule mg capsule Family TAKE 1 TAKE 1 TAKE 1 Practic CAPSULE BY CAPSULE BY CAPSULE BY e MOUTH TWICE MOUTH TWICE MOUTH DAILY DAILY TWICE DAILY tadalafil tadalafil No tadalafil [facility] 20 mg 20 mg 20 mg Family tablet TAKE tablet TAKE tablet Practic 1 TABLET BY 1 TABLET BY TAKE 1 e MOUTH EVERY MOUTH EVERY TABLET BY 72 HOURS 72 HOURS MOUTH NEEDED NEEDED EVERY 72 HOURS NEEDED Trulicity 3 Trulicity 3 No 3mg Q1W ulicity [facility] mg/0.5 mL mg/0.5 mL 3 mg/0.5 F amily subcutaneou subcutaneou mL P ractic s pen s pen subcutaneo e injector injector us pen Inject 3 mg Inject 3 mg injector every week every week Inject 3 by by mg every subcutaneou subcutaneou week by s route. s route. subcutaneo us route. Accu-Chek Accu-Chek Accu-Chek [facility] Fastclix Fastclix Fastclix Fam zane Lancet Drum Lancet Drum Lancet Practic USE USE Drum USE e DIRECTED DIRECTED TWICE DAILY TWICE DAILY DIRECTED TWICE DAILY Accu-Chek Accu-Chek No Accu-Chek [facility] Guide test Guide test Guide test Family strips USE strips USE strips USE Practic DIRECTED DIRECTED e TWICE DAILY TWICE DAILY DIRECTED TWICE DAILY acetaminoph acetaminoph acetaminop [facility] en 300 en 300 hen 300 Family mg-codeine mg-codeine mg-codeine Practic 30 mg 30 mg 30 mg e tablet TAKE tablet TAKE tablet 1 TABLET BY 1 TABLET BY TAKE 1 MOUTH EVERY MOUTH EVERY TABLET BY DAY AT DAY AT MOUTH BEDTIME BEDTIME EVERY DAY AT BEDTIME albuterol albuterol albuterol [facility] sulfate 2.5 sulfate 2.5 sulfate Family mg/3 mL mg/3 mL 2.5 mg/3 Pract ic (0.083 %) (0.083 %) mL (0.083 e solution solution %) for for solution nebulizatio nebulizatio for n USE 3 ML n USE 3 ML nebulizati VIA VIA on USE 3 NEBULIZER NEBULIZER ML VIA THREE TIMES THREE TIMES NEBULIZER DAILY DAILY THREE NEEDED NEEDED TIMES DAILY NEEDED albuterol albuterol No albuterol [place] sulfate HFA sulfate HFA sulfate Family 90 90 HFA 90 Practic mcg/actuati mcg/actuati mcg/actuat e on aerosol on aerosol ion inhaler inhaler aerosol INHALE 2 INHALE 2 inhaler PUFFS BY PUFFS BY INHALE 2 MOUTH EVERY MOUTH EVERY PUFFS BY 4 HOURS 4 HOURS MOUTH NEEDED NEEDED EVERY 4 HOURS NEEDED amlodipine amlodipine No amlodipine [place] 10 mg 10 mg 10 mg Family tablet TAKE tablet TAKE tablet Practic 1 TABLET BY 1 TABLET BY TAKE 1 e MOUTH ONCE MOUTH ONCE TABLET BY DAILY DAILY MOUTH ONCE DAILY amlodipine amlodipine No amlodipine [facility] 5 mg tablet 5 mg tablet 5 mg F amily tablet Practic e aspirin 81 aspirin 81 No aspirin 81 [place] mg mg mg Family tablet,kyler tablet,kyler tablet,del Practic yed release yed release ayed e TAKE 1 TAKE 1 release TABLET BY TABLET BY TAKE 1 MOUTH ONCE MOUTH ONCE TABLET BY DAILY DAILY MOUTH ONCE DAILY atorvastati atorvastati No atorvastat [facility] n 20 mg n 20 mg in 20 mg Famil y tablet TAKE tablet TAKE tablet Practic 1 TABLET BY 1 TABLET BY TAKE 1 e MOUTH ONCE MOUTH ONCE TABLET BY DAILY DAILY MOUTH ONCE DAILY atorvastati atorvastati No atorvastat [facility] n 80 mg n 80 mg in 80 mg Famil y tablet tablet tablet Practic e azithromyci azithromyci No azithromyc [facility] n 250 mg n 250 mg in 250 mg Fa remi tablet TK 2 tablet TK 2 tablet TK Practic TS PO ON TS PO ON 2 TS PO ON e DAY 1, THEN DAY 1, THEN DAY 1, TK 1 T PO D TK 1 T PO D THEN TK 1 FOR 4 DAYS FOR 4 DAYS T PO D FOR 4 DAYS budesonide budesonide No budesonide [facility] 0.5 mg/2 mL 0.5 mg/2 mL 0.5 mg/2 Family suspension suspension mL Pra ctic for for suspension e nebulizatio nebulizatio for n USE 2 ML n USE 2 ML nebulizati VIA VIA on USE 2 NEBULIZER NEBULIZER ML VIA TWICE DAILY TWICE DAILY NEBULIZER FOR 14 DAYS FOR 14 DAYS TWICE DAILY FOR 14 DAYS clonidine clonidine clonidine [facility] HCl 0.1 mg HCl 0.1 mg HCl 0.1 mg Family tablet tablet tablet Practic e [place] [id number] Dexcom G[address] No [address] Sensor Sensor Sensor Family device device device Practic e [address] Transmitter Transmitter Transmitte Family device device r device Practic e diltiazem diltiazem No diltiazem [facility] CD 240 mg CD 240 mg CD 240 mg Family capsule,ext capsule,ext capsule,ex Practic ended ended tended e release 24 release 24 release 24 hr TAKE 1 hr TAKE 1 hr TAKE 1 CAPSULE BY CAPSULE BY CAPSULE BY MOUTH ONCE MOUTH ONCE MOUTH ONCE DAILY DAILY DAILY [facility] mg CD 360 mg Family capsule,ext capsule,ext capsule,ex Practic ended ended tended e release 24 release 24 release 24 hr hr hr ergocalcife ergocalcife No ergocalcif [facility] rol rol eleanor Family (vitamin (vitamin (vitamin Pra ctic D2) 1,250 D2) 1,250 D2) 1,250 e mcg (50,000 mcg (50,000 mcg unit) unit) (50,000 capsule capsule unit) capsule Farxiga 10 Nelsonxiga 10 No 1 Q1D Nelsonxiga 10 [place] mg tablet mg tablet mg tablet Family Take 1 Take 1 Take 1 Practic tablet tablet tablet e every day every day every day by oral by oral by oral route in route in route in the the the morning. morning. morning. Fish Oil Fish Oil No 2capsul Q1D Fish Oil [facility] 1,200 mg 1,200 mg e(s) 1,200 mg Fam zane (144 mg-216 (144 mg-216 (144 P ractic mg) capsule mg) capsule mg-216 mg) e Take 2 Take 2 capsule capsules capsules Take 2 every day every day capsules by oral by oral every day route in route in by oral the the route in morning. morning. the morning. Flax Seed Flax Seed No 2capsul Q1D Flax Seed [facility] Oil 1,000 Oil 1,000 e(s) Oil 1,000 Family mg capsule mg capsule mg capsule Practic Take 2 Take 2 Take 2 e capsules capsules capsules every day every day every day by oral by oral by oral route in route in route in the the the morning. morning. morning. FreeStyle FreeStyle No 2kit(s) FreeStyle [place] Isabell 14 Isabell 14 Isabell 14 Fam zane Day Sensor Day Sensor Day Sensor Practic kit Take 2 kit Take 2 kit Take 2 e kits every kits every kits every month by month by month by miscell. miscell. miscell. route. route. route. glimepiride glimepiride No glimepirid [place] 4 mg tablet 4 mg tablet e 4 mg Family TAKE 1 TAKE 1 tablet Practic TABLET BY TABLET BY TAKE 1 e MOUTH TWICE MOUTH TWICE TABLET BY DAILY DAILY MOUTH BEFORE BEFORE TWICE MEAL(S) MEAL(S) DAILY BEFORE MEAL(S) hydrochloro hydrochloro No hydrochlor [place] thiazide 25 thiazide 25 othiazide Family mg tablet mg tablet 25 mg Prac tic TAKE 1 TAKE 1 tablet e TABLET BY TABLET BY TAKE 1 MOUTH ONCE MOUTH ONCE TABLET BY DAILY FOR DAILY FOR MOUTH ONCE 30 DAYS 30 DAYS DAILY FOR 30 DAYS ibuprofen ibuprofen No ibuprofen [facility] 800 mg 800 mg 800 mg Family tablet TAKE tablet TAKE tablet Practic 1 TABLET BY 1 TABLET BY TAKE 1 e MOUTH THREE MOUTH THREE TABLET BY TIMES DAILY TIMES DAILY MOUTH THREE TIMES DAILY irbesartan irbesartan No irbesartan [facility] 300 mg 300 mg 300 mg Family tablet tablet tablet Practic e Jardiance Jardiance No 1 Q1D Jardiance [facility] 25 mg 25 mg 25 mg Family tablet Take tablet Take tablet Practic 1 tablet 1 tablet Take 1 e every day every day tablet by oral by oral every day route in route in by oral the morning the morning route in for 30 for 30 the days. days. morning for 30 days. Mounjaro 5 Mounjaro 5 No 5mg Q1W Mounjaro 5 [place] mg/0.5 mL mg/0.5 mL mg/0.5 mL Family subcutaneou subcutaneou subcutaneo Practic s pen s pen us pen e injector injector injector Inject 5 mg Inject 5 mg Inject 5 every week every week mg every by by week by subcutaneou subcutaneou subcutaneo s route for s route for us route 30 days. 30 days. for 30 days. phentermine phentermine No 1 Q1D phentermin [place] 37.5 mg 37.5 mg e 37.5 mg Fami ly tablet Take tablet Take tablet Practic 1 tablet 1 tablet Take 1 e every day every day tablet by oral by oral every day route in route in by oral the morning the morning route in for 30 for 30 the days. days. morning for 30 days. pioglitazon pioglitazon No 1 Q1D pioglitazo [place] e 15 mg e 15 mg ne 15 mg Famil y tablet Take tablet Take tablet Practic 1 tablet 1 tablet Take 1 e every day every day tablet by oral by oral every day route route by oral before before route meals for meals for before 90 days. 90 days. meals for 90 days. prednisone prednisone No prednisone [facility] 20 mg 20 mg 20 mg Family tablet TAKE tablet TAKE tablet Practic 1 TABLET BY 1 TABLET BY TAKE 1 e MOUTH TWICE MOUTH TWICE TABLET BY DAILY FOR 5 DAILY FOR 5 MOUTH DAYS DAYS TWICE DAILY FOR 5 DAYS ramipril 5 ramipril 5 No ramipril 5 [facility] mg capsule mg capsule mg capsule Family TAKE 1 TAKE 1 TAKE 1 Practic CAPSULE BY CAPSULE BY CAPSULE BY e MOUTH TWICE MOUTH TWICE MOUTH DAILY DAILY TWICE DAILY tadalafil tadalafil No tadalafil [facility] 20 mg 20 mg 20 mg Family tablet TAKE tablet TAKE tablet Practic 1 TABLET BY 1 TABLET BY TAKE 1 e MOUTH EVERY MOUTH EVERY TABLET BY 72 HOURS 72 HOURS MOUTH NEEDED NEEDED EVERY 72 HOURS NEEDED Trulicity 3 Trulicity 3 No Trulicity [facility] mg/0.5 mL mg/0.5 mL 3 mg/0.5 F amily subcutaneou subcutaneou mL P ractic s pen s pen subcutaneo e injector injector us pen INJECT 3 MG INJECT 3 MG injector SUBCUTANEOU SUBCUTANEOU INJECT 3 SLY ONCE A SLY ONCE A MG WEEK WEEK SUBCUTANEO USLY ONCE A WEEK Accu-Chek Accu-Chek No Accu-Chek [facility] Fastclix Fastclix Fastclix Fam zane Lancet Drum Lancet Drum Lancet Practic USE USE Drum USE e DIRECTED DIRECTED TWICE DAILY TWICE DAILY DIRECTED TWICE DAILY Accu-Chek Accu-Chek No AccuChek [facility] Guide test Guide test Guide test Family strips USE strips USE strips USE Practic DIRECTED DIRECTED e TWICE DAILY TWICE DAILY DIRECTED TWICE DAILY acetaminoph acetaminoph acetaminop [facility] en 300 en 300 hen 300 Family mg-codeine mg-codeine mg-codeine Practic 30 mg 30 mg 30 mg e tablet TAKE tablet TAKE tablet 1 TABLET BY 1 TABLET BY TAKE 1 MOUTH EVERY MOUTH EVERY TABLET BY DAY AT DAY AT MOUTH BEDTIME BEDTIME EVERY DAY AT BEDTIME albuterol albuterol No albuterol [place] sulfate 2.5 sulfate 2.5 sulfate Family mg/3 mL mg/3 mL 2.5 mg/3 Pract ic (0.083 %) (0.083 %) mL (0.083 e solution solution %) for for solution nebulizatio nebulizatio for n USE 3 ML n USE 3 ML nebulizati VIA VIA on USE 3 NEBULIZER NEBULIZER ML VIA THREE TIMES THREE TIMES NEBULIZER DAILY DAILY THREE NEEDED NEEDED TIMES DAILY NEEDED albuterol albuterol No albuterol [place] sulfate HFA sulfate HFA sulfate Family 90 90 HFA 90 Practic mcg/actuati mcg/actuati mcg/actuat e on aerosol on aerosol ion inhaler inhaler aerosol INHALE 2 INHALE 2 inhaler PUFFS BY PUFFS BY INHALE 2 MOUTH EVERY MOUTH EVERY PUFFS BY 4 HOURS 4 HOURS MOUTH NEEDED NEEDED EVERY 4 HOURS NEEDED amlodipine amlodipine No amlodipine [place] 10 mg 10 mg 10 mg Family tablet TAKE tablet TAKE tablet Practic 1 TABLET BY 1 TABLET BY TAKE 1 e MOUTH ONCE MOUTH ONCE TABLET BY DAILY DAILY MOUTH ONCE DAILY amlodipine amlodipine No amlodipine [place] 5 mg tablet 5 mg tablet 5 mg F amily tablet Practic e aspirin 81 aspirin 81 No aspirin 81 [place] mg mg mg Family tablet,kyler tablet,kyler tablet,del Practic yed release yed release ayed e TAKE 1 TAKE 1 release TABLET BY TABLET BY TAKE 1 MOUTH ONCE MOUTH ONCE TABLET BY DAILY DAILY MOUTH ONCE DAILY atorvastati atorvastati No atorvastat [facility] n 20 mg n 20 mg in 20 mg Famil y tablet TAKE tablet TAKE tablet Practic 1 TABLET BY 1 TABLET BY TAKE 1 e MOUTH ONCE MOUTH ONCE TABLET BY DAILY DAILY MOUTH ONCE DAILY [facility]vastati [facility] n 80 mg in 80 mg Famil y tablet tablet tablet Practic e azithromyci azithromyci No azithromyc [facility] n 250 mg n 250 mg in 250 mg Fa remi tablet TK 2 tablet TK 2 tablet TK Practic TS PO ON TS PO ON 2 TS PO ON e DAY 1, THEN DAY 1, THEN DAY 1, TK 1 T PO D TK 1 T PO D THEN TK 1 FOR 4 DAYS FOR 4 DAYS T PO D FOR 4 DAYS budesonide budesonide No budesonide [facility] 0.5 mg/2 mL 0.5 mg/2 mL 0.5 mg/2 Family suspension suspension mL Pra ctic for for suspension e nebulizatio nebulizatio for n USE 2 ML n USE 2 ML nebulizati VIA VIA on USE 2 NEBULIZER NEBULIZER ML VIA TWICE DAILY TWICE DAILY NEBULIZER FOR 14 DAYS FOR 14 DAYS TWICE DAILY FOR 14 DAYS clonidine clonidine No clonidine [facility] HCl 0.1 mg HCl 0.1 mg HCl 0.1 mg Family tablet tablet tablet Practic e [facility] [id number] Sensor Sensor Sensor Family device device device Practic e [address] Transmitter Transmitter Transmitte Family device device r device Practic e diltiazem diltiazem No diltiazem [facility] CD 240 mg CD 240 mg CD 240 mg Family capsule,ext capsule,ext capsule,ex Practic ended ended tended e release 24 release 24 release 24 hr TAKE 1 hr TAKE 1 hr TAKE 1 CAPSULE BY CAPSULE BY CAPSULE BY MOUTH ONCE MOUTH ONCE MOUTH ONCE DAILY DAILY DAILY [facility]iazem [facility] mg CD 360 mg CD 360 mg Family capsule,ext capsule,ext capsule,ex Practic ended ended tended e release 24 release 24 release 24 hr hr hr ergocalcife ergocalcife No ergocalcif [facility] mildred levy eleanor [facility] (vitamin (vitamin (vitamin Pra ctic D2) 1,250 D2) 1,250 D2) 1,250 e mcg (50,000 mcg (50,000 mcg unit) unit) (50,000 capsule capsule unit) capsule Farxiga 10 Farxiga 10 No 1 Q1D Farxiga 10 [place] mg tablet mg tablet mg tablet Family Take 1 Take 1 Take 1 Practic tablet tablet tablet e every day every day every day by oral by oral by oral route in route in route in the the the morning. morning. morning. Fish Oil Fish Oil No 2capsul Q1D Fish Oil [facility] 1,200 mg 1,200 mg e(s) 1,200 mg Fam zane (144 mg-216 (144 mg-216 (144 P ractic mg) capsule mg) capsule mg-216 mg) e Take 2 Take 2 capsule capsules capsules Take 2 every day every day capsules by oral by oral every day route in route in by oral the the route in morning. morning. the morning. Flax Seed Flax Seed No 2capsul Q1D Flax Seed [facility] Oil 1,000 Oil 1,000 e(s) Oil 1,000 Family mg capsule mg capsule mg capsule Practic Take 2 Take 2 Take 2 e capsules capsules capsules every day every day every day by oral by oral by oral route in route in route in the the the morning. morning. morning. FreeStyle FreeStyle No 2kit(s) FreeStyle [place] Is[place]ell 14 Isabell 14 Isabell 14 Fam zane Day Sensor Day Sensor Day Sensor Practic kit Take 2 kit Take 2 kit Take 2 e kits every kits every kits every month by month by month by chantel. miscell. miscell. route. route. route. glimepiride glimepiride No glimepirid [facility] 4 mg tablet 4 mg tablet e 4 mg Family TAKE 1 TAKE 1 tablet Practic TABLET BY TABLET BY TAKE 1 e MOUTH TWICE MOUTH TWICE TABLET BY DAILY DAILY MOUTH BEFORE BEFORE TWICE MEAL(S) MEAL(S) DAILY BEFORE MEAL(S) hydrochloro hydrochloro No hydrochlor [place] thiazide 25 thiazide 25 othiazide Family mg tablet mg tablet 25 mg Prac tic TAKE 1 TAKE 1 tablet e TABLET BY TABLET BY TAKE 1 MOUTH ONCE MOUTH ONCE TABLET BY DAILY FOR DAILY FOR MOUTH ONCE 30 DAYS 30 DAYS DAILY FOR 30 DAYS ibuprofen ibuprofen No ibuprofen [facility] 800 mg 800 mg 800 mg Family tablet TAKE tablet TAKE tablet Practic 1 TABLET BY 1 TABLET BY TAKE 1 e MOUTH THREE MOUTH THREE TABLET BY TIMES DAILY TIMES DAILY MOUTH THREE TIMES DAILY irbesartan irbesartan No irbesartan [facility] 300 mg 300 mg 300 mg Family tablet tablet tablet Practic e Jardiance Jardiance No 1 Q1D Jardiance [facility] 25 mg 25 mg 25 mg Family tablet Take tablet Take tablet Practic 1 tablet 1 tablet Take 1 e every day every day tablet by oral by oral every day route in route in by oral the morning the morning route in for 30 for 30 the days. days. morning for 30 days. Mounjaro 5 Mounjaro 5 No 5mg Q1W M[place]jaro 5 [place] mg/0.5 mL mg/0.5 mL mg/0.5 mL Family subcutaneou subcutaneou subcutaneo Practic s pen s pen us pen e injector injector injector Inject 5 mg Inject 5 mg Inject 5 every week every week mg every by by week by subcutaneou subcutaneou subcutaneo s route for s route for us route 30 days. 30 days. for 30 days. phentermine phentermine No 1 Q1D phentermin [facility] 37.5 mg 37.5 mg e 37.5 mg Fami ly tablet Take tablet Take tablet Practic 1 tablet 1 tablet Take 1 e every day every day tablet by oral by oral every day route in route in by oral the morning the morning route in for 30 for 30 the days. days. morning for 30 days. pioglitazon pioglitazon No 1 Q1D pioglitazo [place] e 15 mg e 15 mg ne 15 mg Famil y tablet Take tablet Take tablet Practic 1 tablet 1 tablet Take 1 e every day every day tablet by oral by oral every day route route by oral before before route meals for meals for before 90 days. 90 days. meals for 90 days. prednisone prednisone No prednisone [facility] 20 mg 20 mg 20 mg Family tablet TAKE tablet TAKE tablet Practic 1 TABLET BY 1 TABLET BY TAKE 1 e MOUTH TWICE MOUTH TWICE TABLET BY DAILY FOR 5 DAILY FOR 5 MOUTH DAYS DAYS TWICE DAILY FOR 5 DAYS ramipril 5 ramipril 5 No ramipril 5 [facility] mg capsule mg capsule mg capsule Family TAKE 1 TAKE 1 TAKE 1 Practic CAPSULE BY CAPSULE BY CAPSULE BY e MOUTH TWICE MOUTH TWICE MOUTH DAILY DAILY TWICE DAILY tadalafil tadalafil No tadalafil [facility] 20 mg 20 mg 20 mg Family tablet TAKE tablet TAKE tablet Practic 1 TABLET BY 1 TABLET BY TAKE 1 e MOUTH EVERY MOUTH EVERY TABLET BY 72 HOURS 72 HOURS MOUTH NEEDED NEEDED EVERY 72 HOURS NEEDED Trulicity 3 Trulicity 3 No Trulicity [place] mg/0.5 mL mg/0.5 mL 3 mg/0.5 F amily subcutaneou subcutaneou mL P ractic s pen s pen subcutaneo e injector injector us pen INJECT 3 MG INJECT 3 MG injector SUBCUTANEOU SUBCUTANEOU INJECT 3 SLY ONCE A SLY ONCE A MG WEEK WEEK SUBCUTANEO USLY ONCE A WEEK Accu-Chek Accu-Chek No Accu-Chek [facility] [place] [facility] Fast[facility]ix Fam zane Lancet Drum Lancet Drum Lancet Practic USE USE Drum USE e DIRECTED DIRECTED TWICE DAILY TWICE DAILY DIRECTED TWICE DAILY Accu-Chek Accu-Chek No Accu-Chek [facility] Guide test Guide test Guide test Family strips USE strips USE strips USE Practic DIRECTED DIRECTED e TWICE DAILY TWICE DAILY DIRECTED TWICE DAILY acetaminoph acetaminoph No acetaminop [facility] en 300 en 300 hen 300 Family mg-codeine mg-codeine mg-codeine Practic 30 mg 30 mg 30 mg e tablet TAKE tablet TAKE tablet 1 TABLET BY 1 TABLET BY TAKE 1 MOUTH EVERY MOUTH EVERY TABLET BY DAY AT DAY AT MOUTH BEDTIME BEDTIME EVERY DAY AT BEDTIME albuterol [facility] sulfate 2.5 sulfate 2.5 sulfate Family mg/3 mL mg/3 mL 2.5 mg/3 Pract ic (0.083 %) (0.083 %) mL (0.083 e solution solution %) for for solution nebulizatio nebulizatio for n USE 3 ML n USE 3 ML nebulizati VIA VIA on USE 3 NEBULIZER NEBULIZER ML VIA THREE TIMES THREE TIMES NEBULIZER DAILY DAILY THREE NEEDED NEEDED TIMES DAILY NEEDED albuterol al[facility]erol No [facility] sulfate HFA sulfate HFA sulfate Family 90 90 HFA 90 Practic mcg/actuati mcg/actuati mcg/actuat e on aerosol on aerosol ion inhaler inhaler aerosol INHALE 2 INHALE 2 inhaler PUFFS BY PUFFS BY INHALE 2 MOUTH EVERY MOUTH EVERY PUFFS BY 4 HOURS 4 HOURS MOUTH NEEDED NEEDED EVERY 4 HOURS NEEDED aspirin 81 aspirin 81 No aspirin 81 [facility] mg mg mg Family tablet,kyler tablet,kyler tablet,del Practic yed release yed release ayed e TAKE 1 TAKE 1 release TABLET BY TABLET BY TAKE 1 MOUTH ONCE MOUTH ONCE TABLET BY DAILY DAILY MOUTH ONCE DAILY atorvastati atorvastati atorvast [facility] n 20 mg n 20 mg in 20 mg Famil y tablet TAKE tablet TAKE tablet Practic 1 TABLET BY 1 TABLET BY TAKE 1 e MOUTH ONCE MOUTH ONCE TABLET BY DAILY DAILY MOUTH ONCE DAILY atorvastati atorvastati atorvastat [facility] n 80 mg n 80 mg in 80 mg Famil y tablet TAKE tablet TAKE tablet Practic 1 TABLET BY 1 TABLET BY TAKE 1 e MOUTH ONCE MOUTH ONCE TABLET BY DAILY DAILY MOUTH ONCE DAILY azithromyci azithromyci azithromyc [facility] n 250 mg n 250 mg in 250 mg Fa remi tablet TAKE tablet TAKE tablet Practic 2 TABLETS 2 TABLETS TAKE 2 e BY MOUTH BY MOUTH TABLETS BY TODAY, THEN TODAY, THEN MOUTH TAKE 1 TAKE 1 TODAY, TABLET TABLET THEN TAKE DAILY FOR 4 DAILY FOR 4 1 TABLET DAYS DAYS DAILY FOR 4 DAYS budesonide budesonide No budesonide [facility] 0.5 mg/2 mL 0.5 mg/2 mL 0.5 mg/2 Family suspension suspension mL Pra ctic for for suspension e nebulizatio nebulizatio for n USE 2 ML n USE 2 ML nebulizati VIA VIA on USE 2 NEBULIZER NEBULIZER ML VIA TWICE DAILY TWICE DAILY NEBULIZER FOR 14 DAYS FOR 14 DAYS TWICE DAILY FOR 14 DAYS clonidine clonidine No clonidine [facility] HCl 0.1 mg HCl 0.1 mg HCl 0.1 mg Family tablet tablet tablet Practic e Dexcom G6 Dexcom G6 No Dexcom G6 [facility] Transmitter Transmitter Transmitte Family device device r device Practic e diltiazem diltiazem No diltiazem [facility] CD 360 mg CD 360 mg CD 360 mg Family capsule,ext capsule,ext capsule,ex Practic ended ended tended e release 24 release 24 release 24 hr TAKE 1 hr TAKE 1 hr TAKE 1 CAPSULE BY CAPSULE BY CAPSULE BY MOUTH ONCE MOUTH ONCE MOUTH ONCE DAILY NEEDS DAILY NEEDS DAILY APPOINTMENT APPOINTMENT NEEDS FOR ANY FOR ANY APPOINTMEN FURTHER FURTHER T FOR ANY REFILLS REFILLS FURTHER REFILLS ergocalcife ergocalcife No ergocalcif [facility] mildred webster Family (vitamin (vitamin (vitamin Pra ctic D2) 1,250 D2) 1,250 D2) 1,250 e mcg (50,000 mcg (50,000 mcg unit) unit) (50,000 capsule capsule unit) capsule [facility] No [facility] mg tablet mg tablet mg tablet Family Take 1 Take 1 Take 1 Practic tablet tablet tablet e every day every day every day by oral by oral by oral route in route in route in the the the morning. morning. morning. Fish Oil Fish Oil No 2capsul Q1D Fish Oil [facility] 1,200 mg 1,200 mg e(s) 1,200 mg Fam zane (144 mg-216 (144 mg-216 (144 P ractic mg) capsule mg) capsule mg-216 mg) e Take 2 Take 2 capsule capsules capsules Take 2 every day every day capsules by oral by oral every day route in route in by oral the the route in morning. morning. the morning. Flax Seed Flax Seed No 2capsul Q1D Flax Seed [facility] Oil 1,000 Oil 1,000 e(s) Oil 1,000 Family mg capsule mg capsule mg capsule Practic Take 2 Take 2 Take 2 e capsules capsules capsules every day every day every day by oral by oral by oral route in route in route in the the the morning. morning. morning. FreeStyle FreeStyle No 2kit(s) FreeStyle [facility] Isabell 14 Isabell 14 Isabell 14 Fam zane Day Sensor Day Sensor Day Sensor Practic kit Take 2 kit Take 2 kit Take 2 e kits every kits every kits every month by month by month by miscell. miscell. miscell. route. route. route. FreeStyle FreeStyle No FreeStyle [facility] Isabell 3 Isabell 3 Isabell 3 Family Sensor Sensor Sensor Practic device USE device USE device USE e DIRECTED DIRECTED -CHANGE -CHANGE DIRECTED EVERY 14 EVERY 14 -CHANGE DAYS DAYS EVERY 14 DAYS glimepiride glimepiride No glimepirid [facility] 4 mg tablet 4 mg tablet e 4 mg Family TAKE 1 TAKE 1 tablet Practic TABLET BY TABLET BY TAKE 1 e MOUTH TWICE MOUTH TWICE TABLET BY DAILY DAILY MOUTH BEFORE BEFORE TWICE MEAL(S) MEAL(S) DAILY BEFORE MEAL(S) hydrochloro hydrochloro No hydrochlor [facility] thiazide 25 thiazide 25 othiazide Family mg tablet mg tablet 25 mg Prac tic TAKE 1 TAKE 1 tablet e TABLET BY TABLET BY TAKE 1 MOUTH ONCE MOUTH ONCE TABLET BY DAILY FOR DAILY FOR MOUTH ONCE 30 DAYS 30 DAYS DAILY FOR 30 DAYS ibuprofen ibuprofen No ibuprofen [facility] 800 mg 800 mg 800 mg Family tablet TAKE tablet TAKE tablet Practic 1 TABLET BY 1 TABLET BY TAKE 1 e MOUTH THREE MOUTH THREE TABLET BY TIMES DAILY TIMES DAILY MOUTH THREE TIMES DAILY Jardiance Jardiance No Jardiance [facility] 25 mg 25 mg 25 mg Family tablet Take tablet Take tablet Practic 1 tablet 1 tablet Take 1 e every day every day tablet by oral by oral every day route in route in by oral the morning the morning route in for 30 for 30 the days. days. morning for 30 days. Mounjaro 5 Mounjaro 5 No Mounjaro 5 Village mg/0.5 mL mg/0.5 mL mg/0.5 mL Family subcutaneou subcutaneou subcutaneo Practic s pen s pen us pen e injector injector injector INJECT 1 INJECT 1 INJECT 1 SYRINGE SYRINGE SYRINGE SUBCUTANEOU SUBCUTANEOU SUBCUTANEO SLY ONCE A SLY ONCE A USLY ONCE WEEK WEEK A WEEK Mounjaro Mounjaro No 7.5mg Q1W Mounjaro Vi llage 7.5 mg/0.5 7.5 mg/0.5 7.5 mg/0.5 Family mL mL mL Practic subcutaneou subcutaneou subcutaneo e s pen s pen us pen injector injector injector Inject 7.5 Inject 7.5 Inject 7.5 mg every mg every mg every week by week by week by subcutaneou subcutaneou subcutaneo s route for s route for us route 30 days. 30 days. for 30 days. phentermine phentermine No 1 Q1D phentermin [facility] 37.5 mg 37.5 mg e 37.5 mg Fami ly tablet Take tablet Take tablet Practic 1 tablet 1 tablet Take 1 e every day every day tablet by oral by oral every day route in route in by oral the morning the morning route in for 30 for 30 the days. days. morning for 30 days. pioglitazon pioglitazon No 1 Q1D pioglitazo [facility] e 15 mg e 15 mg ne 15 mg Famil y tablet Take tablet Take tablet Practic 1 tablet 1 tablet Take 1 e every day every day tablet by oral by oral every day route route by oral before before route meals for meals for before 90 days. 90 days. meals for 90 days. prednisone prednisone No prednisone [facility] 20 mg 20 mg 20 mg Family tablet TAKE tablet TAKE tablet Practic 1 TABLET BY 1 TABLET BY TAKE 1 e MOUTH TWICE MOUTH TWICE TABLET BY DAILY FOR 5 DAILY FOR 5 MOUTH DAYS DAYS TWICE DAILY FOR 5 DAYS promethazin promethazin No promethazi [facility] e-DM 6.25 e-DM 6.25 ne-DM 6.25 Family mg-15 mg/5 mg-15 mg/5 mg-15 mg/5 Practic mL oral mL oral mL oral e syrup syrup syrup ramipril 5 ramipril 5 No ramipril 5 Village mg capsule mg capsule mg capsule Family TAKE 1 TAKE 1 TAKE 1 Practic CAPSULE BY CAPSULE BY CAPSULE BY e MOUTH TWICE MOUTH TWICE MOUTH DAILY DAILY TWICE DAILY tadalafil tadalafil No tadalafil [facility] 20 mg 20 mg 20 mg Family tablet TAKE tablet TAKE tablet Practic 1 TABLET BY 1 TABLET BY TAKE 1 e MOUTH EVERY MOUTH EVERY TABLET BY 72 HOURS 72 HOURS MOUTH NEEDED NEEDED EVERY 72 HOURS NEEDED Trulicity 3 Trulicity 3 No Trulicity [facility] mg/0.5 mL mg/0.5 mL 3 mg/0.5 F amily subcutaneou subcutaneou mL P ractic s pen s pen subcutaneo e injector injector us pen INJECT 3 MG INJECT 3 MG injector SUBCUTANEOU SUBCUTANEOU INJECT 3 SLY ONCE A SLY ONCE A MG WEEK WEEK SUBCUTANEO USLY ONCE A WEEK Accu-Chek Accu-Chek No Accu-Chek [facility] Fastclix Fastclix Fastclix Fam zane Lancet Drum Lancet Drum Lancet Practic USE USE Drum USE e DIRECTED DIRECTED TWICE DAILY TWICE DAILY DIRECTED TWICE DAILY Accu-Chek Accu-Chek No Accu-Chek [facility] Guide test Guide test Guide test Family strips USE strips USE strips USE Practic DIRECTED DIRECTED e TWICE DAILY TWICE DAILY DIRECTED TWICE DAILY albuterol albuterol No albuterol [facility] sulfate 2.5 sulfate 2.5 sulfate Family mg/3 mL mg/3 mL 2.5 mg/3 Pract ic (0.083 %) (0.083 %) mL (0.083 e solution solution %) for for solution nebulizatio nebulizatio for n n nebulizati on amlodipine amlodipine No amlodipine [facility] 10 mg 10 mg 10 mg Family tablet TAKE tablet TAKE tablet Practic 1 TABLET BY 1 TABLET BY TAKE 1 e MOUTH ONCE MOUTH ONCE TABLET BY DAILY DAILY MOUTH ONCE DAILY aspirin 81 aspirin 81 No aspirin 81 [facility] mg mg mg Family tablet,kyler tablet,kyler tablet,del Practic yed release yed release ayed e TAKE 1 TAKE 1 release TABLET BY TABLET BY TAKE 1 MOUTH ONCE MOUTH ONCE TABLET BY DAILY DAILY MOUTH ONCE DAILY Immunizations Ordered Filled Immunization Date Status Comments [facility] e Immunization Name Name COVID-19, mRNA, COVID-19, mRNA, 2021-12-01 Completed [facility] Family LNP-S, PF, 100 LNP-S, PF, 100 00:00:00 Practi ce mcg/0.5 mL dose mcg/0.5 mL dose (Moderna) - ML (Moderna) - ML COVID-19 COVID-19 2021-01-03 Completed [place] (SARS-COV-2) (SARS-COV-2) 00:00:00 Community vaccine, vaccine, Hospital unspecified unspecified Clinics Non-US Vaccine Non-US Vaccine 2021-01-03 Completed [place] COVID-19 PS COVID-19 PS 00:00:00 [facility] (EpiVacCorona) (EpiVacCorona) Hospit al Clinics COVID-19 COVID-19 2021-01-03 Completed [place] (SARS-COV-2) (SARS-COV-2) 00:00:00 Community vaccine, vaccine, Hospital unspecified unspecified Clinics Non-US Vaccine Non-US Vaccine 2021-01-03 Completed [place] COVID-19 PS COVID-19 PS 00:00:00 [facility] (EpiVacCorona) (EpiVacCorona) Hospit al Clinics COVID-19 COVID-19 2021-01-03 Completed [place] (SARS-COV-2) (SARS-COV-2) 00:00:00 Community vaccine, vaccine, Hospital unspecified unspecified Clinics SARS-COV-2 SARS-COV-2 2021-01-03 Completed [place] (COVID-19) vaccine, (COVID-19) vaccine, 00:00:00 Community UNSPECIFIED UNSPECIFIED Hospital Clinics COVID-19 COVID-19 2021-01-03 Completed [place] (SARS-COV-2) (SARS-COV-2) 00:00:00 Community vaccine, vaccine, Hospital unspecified unspecified Clinics COVID-19 PS Non-US COVID-19 PS Non-US 2021-01-03 Completed [facility] Vaccine Vaccine 00:00:00 Practice (EpiVacCorona) (EpiVacCorona) Non-US Vaccine Non-US Vaccine 2021-01-03 Completed [facility] COVID-19 PS COVID-19 PS 00:00:00 Practice (EpiVacCorona) (EpiVacCorona) Non-US Vaccine Non-US Vaccine 2021-01-03 Completed [facility] COVID-19 PS COVID-19 PS 00:00:00 Practice (EpiVacCorona) (EpiVacCorona) COVID-19, mRNA, COVID-19, mRNA, 2021-01-03 Completed [facility] Family LNP-S, PF, 100 LNP-S, PF, 100 00:00:00 Practi ce mcg/0.5 mL dose mcg/0.5 mL dose (Moderna) - ML (Moderna) - ML Non-US Vaccine Non-US Vaccine 2021-01-03 Completed [facility] COVID-19 PS COVID-19 PS 00:00:00 Practice (EpiVacCorona) (EpiVacCorona) COVID-19 COVID-19 2020-12-06 Completed [facility] (SARS-COV-2) (SARS-COV-2) 00:00:00 Community vaccine, vaccine, Hospital unspecified unspecified Clinics Non-US Vaccine Non-US Vaccine 2020-12-06 Completed [place] COVID-19 PS COVID-19 PS 00:00:00 [facility] (EpiVacCorona) (EpiVacCorona) Hospit al Clinics COVID-19 COVID-19 2020-12-06 Completed [place] (SARS-COV-2) (SARS-COV-2) 00:00:00 Community vaccine, vaccine, Hospital unspecified unspecified Clinics Non-US Vaccine Non-US Vaccine 2020-12-06 Completed [place] COVID-19 PS COVID-19 PS 00:00:00 [facility] (EpiVacCorona) (EpiVacCorona) Hospit al Clinics COVID-19 COVID-19 2020-12-06 Completed [place] (SARS-COV-2) (SARS-COV-2) 00:00:00 Community vaccine, vaccine, Hospital unspecified unspecified Clinics SARS-COV-2 SARS-COV-2 2020-12-06 Completed [place] (COVID-19) vaccine, (COVID-19) vaccine, 00:00:00 Community UNSPECIFIED UNSPECIFIED Hospital Clinics COVID-19 COVID-19 2020-12-06 Completed [place] (SARS-COV-2) (SARS-COV-2) 00:00:00 Community vaccine, vaccine, Hospital unspecified unspecified Clinics COVID-19 PS Non-US COVID-19 PS Non-US 2020-12-06 Completed [facility] Vaccine Vaccine 00:00:00 Practice (EpiVacCorona) (EpiVacCorona) Non-US Vaccine Non-US Vaccine 2020-12-06 Completed [facility] COVID-19 PS COVID-19 PS 00:00:00 Practice (EpiVacCorona) (EpiVacCorona) Non-US Vaccine Non-US Vaccine 2020-12-06 Completed [facility] COVID-19 PS COVID-19 PS 00:00:00 Practice (EpiVacCorona) (EpiVacCorona) COVID-19, mRNA, COVID-19, mRNA, 2020-12-06 Completed [facility] Family LNP-S, PF, 100 LNP-S, PF, 100 00:00:00 Practi ce mcg/0.5 mL dose mcg/0.5 mL dose (Moderna) - ML (Moderna) - ML Non-US Vaccine Non-US Vaccine 2020-12-06 Completed [facility] COVID-19 PS COVID-19 PS 00:00:00 Practice (EpiVacCorona) (EpiVacCorona) tetanus toxoid, tetanus toxoid, 2017-11-01 Completed [place] unspecified unspecified 00:00:00 Community formulation formulation [facility] tetanus toxoid, tetanus toxoid, 2017-11-01 Completed [place] unspecified unspecified 00:00:00 Community formulation formulation [facility] tetanus toxoid, tetanus toxoid, 2017-11-01 Completed Vill [facility] Family unspecified unspecified 00:00:00 Practice formulation formulation tetanus toxoid, tetanus toxoid, 2017-11-01 Completed [facility] Family unspecified unspecified 00:00:00 Practice formulation formulation tetanus toxoid, tetanus toxoid, 2017-11-01 Completed [facility] Family unspecified unspecified 00:00:00 Practice formulation formulation tetanus toxoid, tetanus toxoid, 2017-11-01 Completed [facility] Family unspecified unspecified 00:00:00 Practice formulation formulation MODERNA COVID-19 Unknown [facility] COVID-19 Unknown [facility] COVID-19 Unknown [facility] Tetanus Toxoid, Unknown [facility] PFIZER COVID-19 Unknown [facility] PFIZER COVID-19 Unknown [facility] SARS-COV-2 Unknown Completed [facility] (COVID-19) Vaccine, Hospi [facility] Unspecified SARS-COV-2 Unknown Completed [facility] (COVID-19) Vaccine, Hospi roxanne Unspecified Vital Signs Vital Name Observation Time Observation Value Comments Source BP Diastolic 2023-02-04 00:00:00 88 mm[Hg] [facility] Height 2023-02-04 00:00:00 70 [in_i] [facility] BMI (Body Mass 2023-02-04 00:00:00 32.6 kg/m2 [facility] BP Systolic 2023-02-04 00:00:00 150 mm[Hg] [facility] Body Weight 2023-02-04 00:00:00 3638.4 [oz_av] [facility] s BP Diastolic 2023-01-12 00:00:00 78 mm[Hg] [facility] Height 2023-01-12 00:00:00 70 [in_i] [facility] BMI (Body Mass 2023-01-12 00:00:00 32.1 kg/m2 [facility] Family Index) Practice BP Systolic 2023-01-12 00:00:00 168 mm[Hg] [facility] Body Weight 2023-01-12 00:00:00 224 [lb_av] [facility] Systolic blood 2022-08-09 15:50:00 146 mm[Hg] [facility] Diastolic blood 2022-08-09 15:50:00 94 mm[Hg] [facility] Heart rate 2022-08-09 15:47:00 86 /min [facility] Body temperature 2022-08-09 15:47:00 37.39 [facility] Res[facility] rate 2022-08-09 15:47:00 19 /min [facility] Body height 2022-08-09 15:47:00 175.3 cm [facility] Body weight 2022-08-09 15:47:00 100.699 kg [facility] BMI 2022-08-09 15:47:00 32.78 kg/m2 [facility] Oxygen saturation in 2022-08-09 15:47:00 96 /min [facility] Arterial blood by [facility] Pulse oximetry Branch BP Diastolic 2022-07-22 00:00:00 96 mm[Hg] [facility] Height 2022-07-22 00:00:00 70 [in_i] [facility] BMI (Body Mass 2022-07-22 00:00:00 32.9 kg/m2 [facility] BP Systolic 2022-07-22 00:00:00 172 mm[Hg] [facility] Body Weight 2022-07-22 00:00:00 229 [lb_av] [facility] BP Diastolic 2022-04-07 00:00:00 82 mm[Hg] [facility] Height 2022-04-07 00:00:00 70 [in_i] [facility] BMI (Body Mass 2022-04-07 00:00:00 33.5 kg/m2 [facility] Clinic s BP Systolic 2022-04-07 00:00:00 150 mm[Hg] [facility] Body Weight 2022-04-07 00:00:00 3740.8 [oz_av] [facility] s BP Diastolic 2022-02-19 00:00:00 98 mm[Hg] [facility] Height 2022-02-19 00:00:00 70 [in_i] [facility] BMI (Body Mass 2022-02-19 00:00:00 34 kg/m2 [facility] Clinic s BP Systolic 2022-02-19 00:00:00 190 mm[Hg] [facility] Body Weight 2022-02-19 00:00:00 3792 [oz_av] [facility] BP Diastolic 2021-09-29 00:00:00 85 mm[Hg] [facility] Height 2021-09-29 00:00:00 70 [in_i] [facility] BMI (Body Mass 2021-09-29 00:00:00 33.7 kg/m2 [facility]) [facility] s BP Systolic 2021-09-29 00:00:00 152 mm[Hg] [facility] Body Weight 2021-09-29 00:00:00 3753.6 [oz_av] [facility] s BP Diastolic 2021-09-08 00:00:00 105 mm[Hg] [facility] Height 2021-09-08 00:00:00 70 [in_i] [facility] BMI (Body Mass 2021-09-08 00:00:00 35.1 kg/m2 [facility]) Practice BP Systolic 2021-09-08 00:00:00 183 mm[Hg] [facility] Body Weight 2021-09-08 00:00:00 244.8 [lb_av] [facility] BP Diastolic 2021-06-09 00:00:00 87 mm[Hg] [facility] Height 2021-06-09 00:00:00 70 [in_i] [facility] Practice BMI (Body Mass 2021-06-09 00:00:00 34.1 kg/m2 [facility] Index) Practice BP Systolic 2021-06-09 00:00:00 149 mm[Hg] [facility] Body Weight 2021-06-09 00:00:00 237.4 [lb_av] [facility] BP Diastolic 2021-01-29 00:00:00 78 mm[Hg] [facility] Height 2021-01-29 00:00:00 70 [in_i] [facility] BMI (Body Mass 2021-01-29 00:00:00 34.7 kg/m2 [facility] s BP Systolic 2021-01-29 00:00:00 120 mm[Hg] [facility] Body Weight 2021-01-29 00:00:00 3872 [oz_av] [facility] BP Diastolic 2020-07-18 00:00:00 82 mm[Hg] [facility] Height 2020-07-18 00:00:00 70 [in_i] [facility] Practice BMI (Body Mass 2020-07-18 00:00:00 34.4 kg/m2 [facility] Practice BP Systolic 2020-07-18 00:00:00 134 mm[Hg] [facility] Body Weight 2020-07-18 00:00:00 239.8 [lb_av] [facility] Systolic blood 2023-08-30 19:23:00 189 mm[Hg] [facility] pressure Diastolic blood 2023-08-30 19:23:00 103 mm[Hg] [facility] pressure Heart rate 2023-08-30 19:14:00 60 /min [facility] Respiratory rate 2023-08-30 19:14:00 20 /min [facility] Body height 2023-08-30 19:14:00 175.3 cm [facility] Body weight 2023-08-30 19:14:00 100.245 kg [facility] BMI 2023-08-30 19:14:00 32.64 kg/m2 [facility] Oxygen saturation in 2023-08-30 19:14:00 100 /min [facility] Arterial blood by Pulse oximetry Procedures Procedure Date / Time Performing Clinician Source Performed HEMOGLOBIN A1C 2023-08-30 19:45:00 [facility] COMPREHENSIVE METABOLIC 2023-08-30 19:45:00 [facility] PANEL LIPID PANEL 2023-08-30 19:45:00 [facility] ESTIMATED GFR 2023-08-30 19:45:00 [facility] ASSIGNMENT OF BENEFITS 2022-08-09 15:37:23 Doctor Unassigned, No [facility] Plan of Care Planned Activity Planned Date Details Comments Source Future Scheduled 2023-09-09 COVID-19 VACCINE (8 [facility] Test 07:31:53 - season) [facility] [code = COVID-19 VACCINE (8 - season)] Future Scheduled 2023-09-09 INFLUENZA VACCINE Postponed from [facility] Test 07:31:53 (#1) [code = 07/02/2023 Hospital INFLUENZA VACCINE (Patient (#1)] Refused) Future Scheduled 2023-09-09 Pneumococcal Postponed from [facility] Test 07:31:53 Vaccine: [facility] (0 to 5 Years) and (Patient At-Risk Patients (6 Refused) to 64 Years) (1 - PCV) [code = Pneumococcal Vaccine: Pediatrics (0 to 5 Years) and At-Risk Patients (6 to 64 Years) (1 - PCV)] Future Scheduled 2023-09-09 Screening for [facility] 07:31:53 malignant neoplasm [facility] (procedure) [code = 696349372] Future Scheduled 2023-09-09 Screening for [facility] Test 07:31:53 malignant neoplasm [facility] of colon (procedure) [code = 664445853] Future Scheduled 2023-09-09 Screening for [facility] 07:31:53 malignant neoplasm [facility] of colon (procedure) [code = 924426352] Future Scheduled 2023-09-09 DIABETES: RETINAL [facility] 07:31:53 EYE EXAM [code = Hospital DIABETES: RETINAL EYE EXAM] Future Scheduled 2023-09-09 DIABETIC FOOT EXAM [facility] 07:31:53 [code = DIABETIC Hospital FOOT EXAM] Future Scheduled 2023-09-09 Hepatitis C [facility] 07:31:53 screening Hospital (procedure) [code = 465200659] Future Scheduled 2023-09-09 Screening for [facility] Test 07:31:53 malignant neoplasm [facility] (procedure) [code = 536763757] Future Scheduled 2023-09-09 Screening for [facility] Test 07:31:53 malignant neoplasm [facility] of colon (procedure) [code = 716574862] Diagnostic Test 2023-01-12 glucose, [facility] Fami ly Pending 00:00:00 fingerstick, blood Practice [code = glucose, fingerstick, blood] Diagnostic Test 2023-01-12 hemoglobin A1C, [facility] F amily Pending 00:00:00 fingerstick [code = Practice hemoglobin A1C, fingerstick] Diagnostic Test 2023-01-12 CMP, [facility] or [facility] [place] [facility] Pending 00:00:00 plasma [code = CMP, Practice serum or plasma] Diagnostic Test 2023-01-12 microalbumin/creati Velaz[facility] Family Pending 00:00:00 nine, mass ratio, Practice urine [code = microalbumin/creati nine, mass ratio, urine] Diagnostic Test 2023-01-12 lipid panel, serum [facility] Family Pending 00:00:00 [code = lipid Practice panel, serum] Diagnostic Test 2023-01-12 CBC w/ auto diff [facility] Family Pending 00:00:00 [code = CBC w/ auto Practice diff] Diagnostic Test 2023-01-12 TSH, serum or [facility]ane Pending 00:00:00 plasma [code = TSH, Practice serum or plasma] Diagnostic Test 2023-01-12 T4, free, serum [facility] Pending 00:00:00 [code = T4, free, Practice serum] Diagnostic Test 2023-01-12 C-peptide, serum [facility] Pending 00:00:00 [code = C-peptide, Practice serum] Diagnostic Test 2023-01-12 diabetes panel, [facility] Pending 00:00:00 serum [code = Practice diabetes panel, serum] Diagnostic Test 2022-02-19 HbA1c (hemoglobin [facility] Pending 00:00:00 A1c), blood [code = [facility] HbA1c (hemoglobin A1c), blood] Diagnostic Test 2022-02-19 lipid panel, blood [facility] Pending 00:00:00 [code = lipid [facility] cs panel, blood] Diagnostic Test 2022-02-19 CMP, serum or [place] [facility] Pending 00:00:00 plasma [code = CMP, Hospital Clinics serum or plasma] Diagnostic Test 2022-02-19 TSH + T4, serum [place] [facility] Pending 00:00:00 [code = TSH + T4, [facility] C linics serum] Diagnostic Test 2022-02-19 CBC w/ auto diff [place] [facility] Pending 00:00:00 [code = CBC w/ auto Hospital Clinics diff] Diagnostic Test 2022-02-19 urinalysis, reflex [facility] Pending 00:00:00 culture [code = [facility] Cli nics urinalysis, reflex culture] Diagnostic Test 2022-02-19 PSA, serum or [place] [facility] Pending 00:00:00 plasma [code = PSA, Hospital Clinics serum or plasma] Diagnostic Test 2022-02-19 vitamin D, [place] [facility] Pending 00:00:00 25-hydroxy, total, Hospital Clinics serum [code = vitamin D, 25-hydroxy, total, serum] Diagnostic Test 2022-02-19 microalbumin, urine [facility] Pending 00:00:00 [code = Hospital Clinic s microalbumin, urine] Instructions [facility] Clinic s Encounters Start End Encounter Admission Attending Care Care Encounter Source Date/Time Date/Time Type Type Clinicians Facility Department ID 2023-09-09 2023-09-09 Orders Diane, 1.2.840.1 [id number] Methodi 00:00:00 00:00:[address] 3.430.2.7 Hospit a .3.927937 l .8 2023-09-07 2023-09-07 Telephone Luis, 1.2.840.1 [id number] Methodi 00:00:00 00:00:[address] Ruby 3.430.2.7 Hospit a .3.063046 l .8 2023-09-07 2023-09-07 Telephone Lee, 1.2.840.1 [id number] Methodi 00:00:00 00:00:[address] 3.430.2.7 Hospit a .3.227544 l .8 2023-08-30 2023-08-[address] [facility], 1.2.840.1 [id number] Methodi 14:45:00 14:50:[address] 3.430.2.7 Hospit a .3.009642 l .8 2023-08-30 2023-08-[address] [facility], 1.2.840.1 [id number] Methodi 14:00:00 14:43:21 Visit Tieddie 22380.1.[address] 3.430.2.7 Hospit a .3.454312 l .8 2023-08-30 2023-08-30 Outpatient [facility] [id number] [place] 00:00:00 00:00:[address] TIY[address] 2023-08-30 2023-08-30 Outpatient [facility] [id number] [place] 00:00:00 00:00:[address] 2023-08-27 2023-08-27 Refill Lee, 1.2.840.1 [id number] Methodi 00:00:00 00:00:[address] 3.430.2.7 Hospit a .3.143480 l .8 2023-07-16 2023-07-16 Refill Lee, 1.2.840.1 [id number] Methodi 00:00:00 00:00:[address] 3.430.2.7 Hospit a .3.874105 l .8 2023-06-09 2023-06-09 Refill Lee, 1.2.840.1 [id number] [id number] Methodi 00:00:00 00:00:[address] 3.430.2.7 Hospit a .3.732918 l .8 2023-05-03 2023-05-03 Refill Lee, 1.2.840.1 [id number] Methodi 00:00:00 00:00:[address] 3.430.2.7 Hospit a .3.446159 l .8 2023-04-02 2023-04-02 Refill Lee, 1.2.840.1 [id number] [id number] Methodi 00:00:00 00:00:[address] 3.430.2.7 Hospit a .3.956244 l .8 2023-03-09 2023-03-09 Travel 1.2.840.1 1.2.091.380 [id number] [id number] Methodi 00:00:00 00:00:[address] 3.430.2.7 0.2.7.3.698 Ho spita .3.714975 084.8 l .8 2023-03-07 2023-03-07 Travel 1.2.840.1 1.2.167.912 1135 [id number] Methodi 00:00:00 00:00:[address] 3.430.2.7 0.2.7.3.698 Ho spita .3.418993 084.8 l .8 2023-03-05 2023-03-05 Outpatient Vasu_T_HO VFP VFP 114 [id number] [place] 00:00:00 00:00:00 JAMEL [id number] [facility] 2023-03-04 2023-03-04 [address]1 [id number] Methodi 11:20:00 11:28:03 Visit Ellen 68168.1.[address] 3.430.2.7 Hospit a .3.337708 l .8 2023-03-04 2023-03-04 Outpatient [facility] [id number] [place] 00:00:00 00:00:[address] 2023-03-04 2023-03-04 Travel 1.2.840.1 1.2.656.608 [id number] Methodi 00:00:00 00:00:[address] 3.430.2.7 0.2.7.3.698 Ho spita .3.936668 084.8 l .8 2023-03-02 2023-03-02 Sharon Brown 1.2.840.1 [id number] Methodi 00:00:00 00:00:00 Only , Doreen Nye 51640.1.1 [address] s t 3.430.2.7 Hospit a .3.869525 l .8 2023-02-04 2023-02-04 Outpatient DEIDRE [facility] [id number] 0230 [place] 00:00:00 00:00:00 406 [facility] 2023-02-04 2023-02-04 Elba Abbott [facility] [place] [facility] [place] [id number] [place] 00:00:00 00:00:00 Chi Juarez MD: [address] [facility] JOBY Ocampo Hospit a [address], COMMUNITY l [address], HOSPITAL Clinic s [place], [place] CLINIC, [address] ISHAN , Ph. 2023-01-12 2023-01-12 Outpatient Daniel_T VFP VFP [id number] [facility] 00:00:00 00:00:00 [id number] Family Practic e 2023-01-12 2023-01-12 Outpatient Daniel_T VFP VFP [id number] 20 [facility] 00:00:00 00:00:00 [id number] Family Practic e 2023-01-12 2023-01-12 Lyndon VFP [place] - [id number] V illage 00:00:00 00:00:00 [facility] Vasu Medical - Praclisa haddad MD: [id number] [place] - e Shadow VM_HOU_Shad [place] [address], [place] [address] , Ph. 2022-08-09 2022-08-09 Urgent [facility] 1.2.840.114 [id number] Univers 10:40:00 11:00:[address] [facility] 350.1.13.10 it y of LESLIE 4.2.7.2.686 Yogi as CHEL?BLEA [id number] [address] MEDICAL OFFICE BUILDING 2022-08-09 2022-08-09 Outpatient [facility] [id number] Univers 10:40:00 10:40:00 NATACHA ity of [facility] 2022-08-09 2022-08-09 Orders Doctor LIM 1.2.840.114 [id number] Univers 00:00:00 00:00:00 Only Unassigned, TERI 350.1.13.10 ity of [place] 4.2.7.2.686 Yogi as [id number] [address] 2022-07-22 2022-07-22 Outpatient Daniel_T VFP VFP [id number] [facility] 00:00:00 00:00:00 [id number] Family Practic e 2022-07-22 2022-07-22 Lyndon VFP [place] - [id number] V illage 00:00:00 00:00:00 Madhav [facility] Family LeoneCampbell - Praclisa haddad MD: [id number] VM_HOU_Khadar e [place] [address], [place] [address] , Ph. 2022-07-21 2022-07-21 Outpatient Vasu_T [facility] [id number] [place] 00:00:00 00:00:00 [id number] Family Practic e 2022-04-07 2022-04-07 Outpatient KEFFER_A [facility] [id number] [place] 04:00:00 04:00:00 607 [facility] 2022-04-07 2022-04-07 Outpatient JOHNNYFFER_A [facility] [id number] [place] 04:00:00 04:00:00 622 Commun i [facility]osp[facility] Clinics 2022-04-07 2022-04-07 [facility] 60 [place] 00:00:00 00:00:00 Chi Juarez MD: [address] [facility] Hospit a [address], [facility] l [address], [place], [place] CLINIC, [address] ISHAN , Ph. 2022-04-07 2022-04-07 Outpatient Elba Juarez [facility] [id number] 00:00:00 00:00:00 Milena [id number] 2022-03-25 2022-03-25 Outpatient KEFFER_A [facility] [id number] [place] 09:44:00 09:44:00 525 [facility] 2022-03-04 2022-03-04 Outpatient JOHNNYFFER_A [facility] [id number] [place] 11:04:00 11:04:00 504 [facility] i [facility] Clinics 2022-02-19 2022-02-19 Outpatient KEFFER_A [facility] [id number] [place] 05:08:00 05:08:00 421 [facility] i [facility] Clinics 2022-02-19 2022-02-19 Elba Yoonn [facility] [place] [facility] [place] 421 [place] 00:00:00 00:00:00 Chi Juarez MD: [address] [facility] Hospit a [address], [facility] l [address], HOSPITAL Clinic [place], [place] CLINIC, [address] ISHAN , Ph. 2022-02-19 2022-02-19 Outpatient Elba Juarez [facility] [id number] 00:00:00 00:00:00 Milena [id number] 2022-01-28 2022-01-28 Outpatient Daniel_T VFP VFP [id number] 11-20 [facility] 00:00:00 00:00:00 [id number] Family Practic e 2022-01-13 2022-01-13 Outpatient KEFFER_A [facility] [id number] [place] 04:55:00 04:55:00 315 Commun i ty [facility] Clinics 2022-01-07 2022-01-07 Outpatient KEFFER_A [facility] [id number] [place] 03:05:00 03:05:00 309 Commun i ty [facility] Clinics 2021-12-09 2021-12-09 Outpatient KEFFER_A [facility] [id number] [place] 02:43:00 02:43:00 208 Commun i ty [facility] Clinics 2021-11-21 2021-11-21 Outpatient Daniel_T VFP VFP [id number] [facility] 04:19:00 04:19:00 [id number] Family Practic e 2021-11-21 2021-11-21 Outpatient Daniel_T VFP VFP [id number] [facility] 04:19:00 04:19:00 [id number] Family Practic e 2021-10-17 2021-10-17 Outpatient Daniel_T VFP VFP [id number] [facility] 02:18:00 02:18:00 [id number] Family Practic e 2021-09-30 2021-09-30 Outpatient KEFFER_A [facility] [id number] [place] 10:59:00 10:59:00 130 Commun i ty Hospita [facility] Clinics 2021-09-29 2021-09-29 Outpatient KEFFER_A [facility] [id number] [place] 10:06:00 10:06:00 129 Commun i ty Hospita [facility] Clinics 2021-09-29 2021-09-29 Libby [facility] [place] [facility] [place] [id number] [place] 00:00:00 00:00:00 Claudy [facility] 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 2021-09-29 2021-09-29 Outpatient Claudy [facility] [id number] 00:00:00 00:00:00 Libby [id number] 2021-09-17 2021-09-17 Outpatient Daniel_T VFP VFP [id number] [address] [place] [address] 08:46:00 08:46:00 [id number] Family Practic e 2021-09-08 2021-09-08 Outpatient Daniel_T VFP VFP [id number] [address] [place] [address] 12:05:00 12:05:00 [id number] Family Practic e 2021-09-08 2021-09-08 Lyndon VFP [place] - [id number] V illage 00:00:00 00:00:00 [facility] Family VasuCampbell gambino - Praclisa haddad MD: [id number] VM_HOU_Khadar e [facility], [address], [place] [address] , Ph. 2021-06-11 2021-06-11 Outpatient Daniel_T VFP VFP [id number] [address] 02:36:00 02:36:00 [id number] Family Practic e 2021-06-11 2021-06-11 Outpatient Daniel_T VFP VFP [id number] [address] 02:36:00 02:36:00 [id number] Family Practic e 2021-06-11 2021-06-11 Outpatient Daniel_T VFP VFP [id number] [facility] 02:36:00 02:36:00 [id number] Family Practic e 2021-06-09 2021-06-09 Outpatient Daniel_T VFP VFP [id number] [facility] 12:21:00 12:21:00 [id number] Family Practic e 2021-06-09 2021-06-09 Lyndon VFP [place] - [id number] V illage 00:00:00 00:00:00 [facility] Family Leone, Campbell - Praclisa haddad MD: [id number] VM_HOU_Shad e [place] [facility], [address], [place] [address] , Ph. 2021-01-29 2021-01-29 Outpatient ISHAN_Minh [facility] [id number] [place] 05:59:00 05:59:00 [address] [facility] i ty Hospita [facility] 2021-01-29 2021-01-29 Outpatient Elba Juarez [facility] [id number] 00:00:00 00:00:00 Milena [id number] 2021-01-29 2021-01-29 Elba Abbott [facility] [place] [facility] 331 [place] 00:00:00 00:00:00 Chi Juarez MD: [address] [facility] Hospit a [address], [facility] l [address], HOSPITAL Clinic [place], [place] CLINIC, [address] ISHAN , Ph. 2020-10-21 2020-10-21 Outpatient Daniel_T VFP VFP [id number] [address] 05:36:00 05:36:00 [id number] Family Practic e 2020-10-09 2020-10-09 Outpatient Daniel_T VFP VFP [id number] [facility] 01:02:00 01:02:00 Family Practic e 2020-09-04 2020-09-04 Outpatient Daniel_T VFP VFP [id number] [facility] 01:03:00 01:03:00 Family Practic e 2020-07-30 2020-07-30 Outpatient Daniel_T VFP [facility] [id number] [facility] 11:02:00 11:02:00 [id number] Family Practic e 2020-07-24 2020-07-24 Outpatient Daniel_T VFP P [id number] 11-20 [facility] 05:29:00 05:29:00 [id number] Family Practic e 2020-07-18 2020-07-18 Outpatient daniel_t VFP [facility] [id number] 11-20 [facility] 05:27:00 05:27:00 [id number] Family Practic e 2020-07-18 2020-07-18 Lyndon VFP [place] - [id number] V illage 00:00:00 00:00:00 Madhav [facility] VasuCampbell gambino - Practi boo GARCIA: [id number] VM_HOU_Calos zehra [facility], [address] [address] , Ph. 2020-05-16 2020-05-16 Outpatient Santos [facility] [id number] Univers 08:20:00 08:20:00 REINA lambert [facility] Results Test Description Test Time Test Comments Results Result Comments Source Hemoglobin A1c measurement device panel 2023-01-12 15:15:12 Test Item Value Reference Range Interpretation Comme nts Hemoglobin A1c/Hemoglobin.total in Blood (test code = 4548-4) 8.2 % 5.7-6.4 [facility] PracticeGlucose [Mass/volume] in Capillary [id number] 15:08:10 Test Item Value Reference Range Interpretation Comments Blood Glucose: mg/dl (test code = Blood 253 Glucose: mg/dl) [facility] PracticeGlucose [Mass/volume] in Capillary [id number] 11:46:43 Test Item Value Reference Range Interpretation Comments Blood Glucose: mg/dl (test code = Blood 161 Glucose: mg/dl) [facility] PracticeGlucose [Mass/volume] in Capillary [id number] 11:46:43 Test Item Value Reference Range Interpretation Comments Blood Glucose: mg/dl (test code = Blood 161 Glucose: mg/dl) [facility] [id number] 11:46:14 Test Item Value Reference Range Interpretation Comments Hemoglobin A1c/Hemoglobin.total in 10.2 % 5.7-6.4 Blood (test code = 4548-4) [facility] device [id number] 11:46:14 Test Item Value Reference Range Interpretation Comments Hemoglobin A1c/Hemoglobin.total in 10.2 % 5.7-6.4 Blood (test code = 4548-4) [facility] device [id number] 09:08:29 Test Item Value Reference Range Interpretation Comments Hemoglobin A1C Fingerstick: (test code 8.6 = Hemoglobin A1C Fingerstick:) [facility] device [id number] 09:08:29 Test Item Value Reference Range Interpretation Comments Hemoglobin A1C Fingerstick: (test code 8.6 = Hemoglobin A1C Fingerstick:) [facility] [Mass/volume] in Capillary [id number] 09:05:12 Test Item Value Reference Range Interpretation Comments Blood Glucose: mg/dl (test code = Blood 179 Glucose: mg/dl) [facility] [Mass/volume] in Capillary [id number] 09:05:12 Test Item Value Reference Range Interpretation Comments Blood Glucose: mg/dl (test code = Blood 179 Glucose: mg/dl) [facility]
[2023-09-10] MEDS ORDERED: HYDRALAZINE HCL 20 MG/ML VIAL ONE ×2 (00:41→01:16)
[2023-09-10] MEDS ORDERED: ONDANSETRON 4 MG/2 ML VIAL ONE (01:16)
[2023-09-10] MEDS ORDERED: PANTOPRAZOLE 40 MG INJ ONE (01:16)
[2023-09-10 01:20] LABS: Absolute Lymphocytes (CBC) 2.3 K/uL (0.7-4.9); Hematocrit 30.8 % (39.6-49.0); Lymphocytes % 25.1 % (15.3-44.8); MPV 7.9 fL (7.6-11.3); Platelets 323 thou/uL (152-406); RBC Red Blood Cell Count 3.62 M/uL (4.33-5.43)
[2023-09-10] MEDS ORDERED: cloNIDine HCL 0.1 MG TAB ONE (01:29)
[2023-09-10 01:50] LABS: Magnesium 2.2 mg/dL (1.6-2.4); Potassium 3.9 mEq/L (3.5-5.1); Troponin High Sensitivity 16.3 pg/mL (<58.9)
--- NOTE | 2023-09-10 02:19 | EDPHYS ---
Physician Documentation [facility] Name: Krishna Ha Age: 47 yrs Sex: Male : 1975 Arrival Date: 09/09/2023 Time: 23:25 Bed 4 Private MD: ED Physician Maikel Bello HPI: 09/09 23:53 This 47 yrs old Black Male presents to ER via Unassigned with complaints of Chest Pain, cp High Blood Pressure. 23:53 The patient has elevated blood pressure and discovered this at home, with a home device.cp 23:53 Onset: The symptoms/episode began/occurred today. Associated signs and symptoms: cp Pertinent positives: chest pain, palpitations, Pertinent negatives: headache, vomiting, weakness. 23:53 Severity of symptoms: At its worst the blood pressure was 213 mm Hg. cp 23:53 Patient admits to being off prescribed blood pressure medication chlorthalidone for cp about 1 week after running out. Historical: - Allergies: 23:41 Ranitidine HCl; ha1 - Home Meds: 23:41 Clonidine Oral [Active]; lisinopril-hydrochlorothiazide Oral [Active]; ha1 - PMHx: 23:41 Diabetes - NIDDM; Hypertension; ha1 - Immunization history:: Adult Immunizations not up to date. - Social history:: Smoking status: Patient reports the use of cigarette tobacco products, smokes one-half pack cigarettes per day. ROS: 23:55 Cardiovascular: Positive for palpitations, cp 23:55 Constitutional: Negative for body aches, chills, fever, poor PO intake, cp 23:55 Respiratory: Negative for cough, shortness of breath, wheezing, cp 23:55 Neuro: Negative for altered mental status, dizziness, headache, numbness, syncope, weakness, 23:55 Eyes: Negative for injury, pain, redness, and discharge, cp 23:55 Abdomen/GI: Negative for abdominal pain, vomiting, diarrhea, constipation, 23:55 All other systems are negative, cp Exam: 23:50 ECG was reviewed by the Attending Physician. cp 23:59 Constitutional: The patient appears in no acute distress, alert, awake, comfortable, cp non-diaphoretic, non-toxic, well developed, well nourished, 23:59 Head/Face: Normocephalic, atraumatic. cp 23:59 Eyes: Periorbital structures: appear normal, Conjunctiva: normal, no exudate, no injection, Sclera: no appreciated abnormality, Lids and lashes: appear normal, bilaterally, 23:59 ENT: External ear(s): are unremarkable, Nose: is normal, Mouth: Lips: moist, Oral mucosa: pink and intact, moist, Posterior pharynx: is normal, airway is patent, no erythema, no exudate, 23:59 Chest/axilla: Inspection: normal, 23:59 Cardiovascular: Rate: normal, Rhythm: regular, Edema: is not appreciated, JVD: is not appreciated, 23:59 Respiratory: the patient does not display signs of respiratory distress, Respirations: normal, no use of accessory muscles, no retractions, labored breathing, is not present, Breath sounds: are clear throughout, no decreased breath sounds, no stridor, no wheezing, 23:59 Abdomen/GI: Inspection: abdomen appears normal, Palpation: abdomen is soft and non-tender, in all quadrants, 23:59 Back: pain, is absent, ROM is normal, 23:59 Skin: cellulitis, is not appreciated, no rash present. cp 23:59 Neuro: Orientation: to person, place \T\ time. Mentation: is normal, Cerebellar function: is grossly normal, Motor: moves all fours, strength is normal, Sensation: is normal, Vital Signs: 23:41 BP 183 / 94; Pulse 77; Resp 18 S; Temp 97.9; Pulse Ox 99% on R/A; Weight 99.79 kg; ha1 Height 5 ft. 9 in. ; 09/10 00:30 BP 161 / 90; Pulse 81; Resp 18 S; Pulse Ox 98% on R/A; ha1 01:32 BP 176 / 92; Pulse 73; Resp 18 S; Pulse Ox 100% on R/A; ha1 02:05 BP 158 / 87; Pulse 79; Resp 18 S; Pulse Ox 100% on R/A; ha1 02:09 BP 177 / 90; Pulse 82; Resp 14 S; Pulse Ox 100% on R/A; ha1 09/09 23:41 Body Mass Index 32.49 (99.79 kg, 175.26 cm) ha MDM: 09/09 23:46 Patient medically screened. cp 11 00:00 Differential diagnosis: hypertensive crisis, Malignant HTN, intracerebral hemorrhage, cp acute kidney failure. 02:12 Data reviewed: vital signs, nurses notes, lab test result(s), EKG, radiologic studies, cp plain films. Consideration of Admission/Observation Escalation of care including admission/observation considered. I considered the following discharge prescriptions or medication management in the emergency department Medications were administered in the Emergency Department. See MAR. Independent interpretation of the following test(s) in the Emergency Department EKG: See my EKG interpretation above. Response to treatment: the patient's symptoms have mildly improved after treatment. ED course: Discussed results of today's testing. Patient reports recent blood work with a creatinine of over 4 and that he has appt on Wednesday with mix chemist concerning kidney disease. Patient requesting discharge to home to f/u outpatient with mix chemist. 09/09 23:54 Order name: Basic Metabolic Panel; Complete Time: :52 09/10 01:52 Interpretation: Normal except: CL 109; BUN 57; CRE 5.34; GFR 12; CA 8.2. 09/09 23:54 Order name: CBC with Diff; Complete Time: : 09/10 01:26 Interpretation: Normal except: RBC 3.62; HGB 10.4; HCT 30.8. 09/09 23:54 Order name: Magnesium; Complete Time: 09/09 23:54 Order name: Troponin HS; Complete Time: : 09/09 23:54 Order name: XRAY Chest (1 view) 09/09 23:54 Order name: EKG; Complete Time: :54 09/09 23:54 Order name: Cardiac monitoring; Complete Time: 00:06 09/09 23:54 Order name: EKG - Nurse/Tech; Complete Time: 00:06 09/09 23:54 Order name: IV Saline Lock; Complete Time: : 09/09 23:54 Order name: Labs collected and sent; Complete Time: : 09/09 23:54 Order name: O2 Per Protocol; Complete Time: 00:56 09/09 23:54 Order name: O2 Sat Monitoring; Complete Time: 00:56 EC/09 23:50 Rate is 77 beats/min. Rhythm is regular. KS interval is normal. QRS interval is normal. cp QT interval is normal. T waves are Inverted in lead aVL. Interpreted by me. Reviewed by me. Administered Medications: 09/10 01:12 Drug: Ondansetron IVP 4 mg IVP once; over 2 minutes Route: IVP; Site: right forearm; ha1 02:07 Follow up: Response: No adverse reaction ha1 01:15 Drug: hydrALAZINE IVP 10 mg IVP once Route: IVP; Site: right forearm; ha1 01:16 Drug: Pantoprazole IVP 40 mg IVP once Route: IVP; Site: right forearm; ha1 02:07 Follow up: Response: No adverse reaction ha1 01:16 Drug: cloNIDine PO 0.1 mg PO once Route: PO; ha1 02:06 Follow up: Response: No adverse reaction ha1 01:26 Not Given (Physician Discretion): [id number] mg IVP once cp Disposition: 02:41 Co-signature as Attending Physician, Maikel Bello MD I reviewed the patient's care rt provided by the Advanced Practice Provider and agree with the diagnosis and treatment plan. Disposition Summary: 09/10/23 02:18 Discharge Ordered Notes: Location: Home cp Problem: an ongoing problem cp Symptoms: have improved cp Condition: Stable cp Diagnosis - Hypertensive heart and chronic kidney disease without heart failure, with stage 5 cp chronic kidney disease, or end stage renal disease Followup: cp - With: Private Physician - When: 2 - 3 days - Reason: Recheck today's complaints Discharge Instructions: - Discharge Summary Sheet cp - Hypertension, Adult cp - Food Basics for Chronic Kidney Disease cp - Chronic Kidney Disease, Adult cp Forms: - Medication Reconciliation Form cp - Thank You Letter cp - Antibiotic Education cp - Prescription Opioid Use cp - Patient Portal Instructions cp - Leadership Thank You Letter cp Signatures: Dispatcher [employer] EDDavi Young PA PA cp Isabell Ugarte RN RN ha1 Maikel Bello MD MD rt
--- NOTE | 2023-09-10 02:19 | ER ---
Nurse's Notes [facility] Name: Krishna Ha Age: 47 yrs Sex: Male : 1975 Arrival Date: 09/09/2023 Time: 23:25 Bed 4 Private MD: Diagnosis: Hypertensive heart and chronic kidney disease without heart failure, with stage 5 chronic kidney disease, or end stage renal disease Presentation: 09/09 23:41 Chief complaint: Patient states: My blood pressure was really elevated at home at ha1 213/156. Also, I am feeling chest palpitations and mid epigastric pain. 23:41 Coronavirus screen: Vaccine status: Patient reports receiving the 2nd dose of the covid ha1 vaccine. Moderna. Ebola Screen: No symptoms or risks identified at this time. Initial Sepsis Screen: Does the patient meet any 2 criteria? No. Patient's initial sepsis screen is negative. Does the patient have a suspected source of infection? No. Patient's initial sepsis screen is negative. Risk Assessment: Do you want to hurt yourself or someone else? Patient reports no desire to harm self or others. Onset of symptoms was September 10, 2023. 23:41 Method Of Arrival: Ambulatory 1 23:41 Acuity: DOMINIQUE 3 ha1 Triage Assessment: 23:41 General: Appears comfortable, Behavior is calm, cooperative. Pain: Complains of pain in ha1 chest palpitations and mid epigastric. Neuro: Level of Consciousness is awake, alert, obeys commands, Oriented to person, place, time, situation. Cardiovascular: Reports chest pain, Heart tones S1 S2 present Capillary refill < 3 seconds Patient's skin is warm and dry. Respiratory: Airway is patent Respiratory effort is even, unlabored, Respiratory pattern is regular, symmetrical. GI: Abdomen is round non-distended, Reports epigastric pain. : No signs and/or symptoms were reported regarding the genitourinary system. Derm: Skin is healthy with good turgor, Skin is moist, Skin is normal. Musculoskeletal: Circulation, motion, and sensation intact. Range of motion: intact in all extremities. Historical: - Allergies: 23:41 Ranitidine HCl; ha1 - Home Meds: 23:41 Clonidine Oral [Active]; lisinopril-hydrochlorothiazide Oral [Active]; ha1 - PMHx: 23:41 Diabetes - NIDDM; Hypertension; ha1 - Immunization history:: Adult Immunizations not up to date. - Social history:: Smoking status: Patient reports the use of cigarette tobacco products, smokes one-half pack cigarettes per day. Screenin/10 00:15 Abuse screen: Denies threats or abuse. Denies injuries from another. Nutritional ha1 screening: No deficits noted. Tuberculosis screening: No symptoms or risk factors identified. 02:38 [facility] ED Fall Risk Assessment (Adult) History of falling in the last 3 months, ha1 including since admission No falls in past 3 months (0 pts) Confusion or Disorientation No (0 pts) Intoxicated or Sedated No (0 pts) Impaired Gait No (0 pts) Mobility Assist Device Used No (0 pt) Altered Elimination No (0 pt) Score/Fall Risk Level 0 - 2 = Low Risk Oriented to surroundings, Maintained a safe environment, Educated pt \\T\\ family on fall prevention, incl call for assistance when getting out of bed. Assessment: 00:15 Reassessment: Notified charge nurse of need for ultrasound IV. ha1 00:43 Reassessment: Patient and/or family updated on plan of care and expected duration. Pain ha1 level reassessed. Patient is alert, oriented x 3, equal unlabored respirations, skin warm/dry/pink. 01:40 Reassessment: Patient and/or family updated on plan of care and expected duration. Pain ha1 level reassessed. Patient is alert, oriented x 3, equal unlabored respirations, skin warm/dry/pink. Patient states feeling better. Patient states symptoms have improved. 02:15 Reassessment: requesting to be discharge. explained the importance of getting blood ha1 pressure under control. Pt. States " I have to go to work this morning and I just want to go home". 02:31 Reassessment: Patient and/or family updated on plan of care and expected duration. Pain ha1 level reassessed. Patient is alert, oriented x 3, equal unlabored respirations, skin warm/dry/pink. Vital Signs: 09/09 23:41 BP 183 / 94; Pulse 77; Resp 18 S; Temp 97.9; Pulse Ox 99% on R/A; Weight 99.79 kg; ha1 Height 5 ft. 9 in. ; 09/10 00:30 BP 161 / 90; Pulse 81; Resp 18 S; Pulse Ox 98% on R/A; ha1 01:32 BP 176 / 92; Pulse 73; Resp 18 S; Pulse Ox 100% on R/A; ha1 02:05 BP 158 / 87; Pulse 79; Resp 18 S; Pulse Ox 100% on R/A; ha1 02:09 BP 177 / 90; Pulse 82; Resp 14 S; Pulse Ox 100% on R/A; ha1 09/09 23:41 Body Mass Index 32.49 (99.79 kg, 175.26 cm) ha1 ED Course: 09/09 23:27 Patient arrived in ED. jj6 23:28 Davi Doan PA is PHCP. cp 23:28 Maikel Bello MD is Attending Physician. cp 23:41 Arm band placed on right wrist. ha1 23:41 Patient has correct armband on for positive identification. Placed in gown. Bed in low ha1 position. Call light in reach. Side rails up X 1. Adult w/ patient. 23:41 Client placed on continuous cardiac and pulse oximetry monitoring. NIBP monitoring ha1 applied. 23:41 Patient maintains SpO2 saturation greater than 95% on room air. ha1 23:50 Missed attempt(s): 22 gauge in right antecubital area. ha1 11 00:10 Triage completed. ha1 00:10 Missed attempt(s): 20 gauge in left antecubital area. ha1 00:17 XRAY Chest (1 view) In Process Unspecified. EDMS 01:28 Basic Metabolic Panel Sent. ha1 01:28 Magnesium Sent. ha1 01:28 Troponin HS Sent. ha1 02:33 No provider procedures requiring assistance completed. IV discontinued, intact, ha1 bleeding controlled, No redness/swelling at site. Pressure dressing applied. 02:34 Provided Education on: following up with PCP. getting blood pressure under control. ha1 avoiding salty food. . Administered Medications: 01:12 Drug: Ondansetron IVP 4 mg IVP once; over 2 minutes Route: IVP; Site: right forearm; ha1 02:07 Follow up: Response: No adverse reaction ha1 01:15 Drug: hydrALAZINE IVP 10 mg IVP once Route: IVP; Site: right forearm; ha1 01:16 Drug: Pantoprazole IVP 40 mg IVP once Route: IVP; Site: right forearm; ha1 02:07 Follow up: Response: No adverse reaction ha1 01:16 Drug: cloNIDine PO 0.1 mg PO once Route: PO; ha1 02:06 Follow up: Response: No adverse reaction ha1 01:26 Not Given (Physician Discretion): [id number] mg IVP once cp Medication: 02:39 VIS not applicable for this client. ha1 Outcome: 02:18 Discharge ordered by . cp 02:34 Discharged to home ambulatory, with family, ha1 02:34 Condition: stable 02:34 Discharge instructions given to patient, family, Instructed on discharge instructions, follow up and referral plans. Demonstrated understanding of instructions, follow-up care, 02:39 Patient left the ED. ha1 Signatures: Dispatcher [employer] EDMS Davi Doan PA PA cp Jeffries, Jennifer [email or web address] Isabell Ugarte RN RN ha1 Corrections: (The following items were deleted from the chart) 01:27 01:26 Pantoprazole IVP 40 mg IVP in right forearm ha1 ha1
[2023-09-10 02:46] VITALS: TEMP 97.9
[2023-09-10 02:49] VITALS: O2SAT 100
[2023-09-10 02:51] VITALS: BP 177/90
--- NOTE | 2023-09-10 11:49 | RAD REPORT ---
EXAM DESCRIPTION: Chest Single View CLINICAL HISTORY: 47 years Male htn COMPARISON: None TECHNIQUE: AP view of the chest was obtained. Patient is lordotic in positioning. FINDINGS: Cardiac size is within normal limits. Central vessels are not increased. No infiltrates or effusions seen. No consolidation. No pneumothorax. IMPRESSION: No active disease. Electronically signed by: Sharmin Cisneros MD 09/10/2023 12:32 AM UI ARCHITECT Due to temporary technical issues with the PACS/Fluency reporting system, reports are being signed by the in house radiologists without review as a courtesy to insure prompt reporting. The interpreting radiologist is fully responsible for the content of the report.
--- NOTE | 2023-09-11 14:11 | EKG ---
Test Date: 2023-09-09 Test Time: 23:43:14 Hospital Aide: SALTY MEASUREMENT RESULTS: Intervals: Rate: 77 PA: 186 QRSD: 98 QT: 422 QTc: 477 Ovalo: P: 65 PA: 186 QRS: 5 T: 68 INTERPRETIVE STATEMENTS: Sinus rhythm with marked sinus arrhythmia Incomplete right bundle branch block Borderline ECG Compared to ECG 07/04/2020 10:16:40 Incomplete right bundle-branch block now present T-wave abnormality no longer present Electronically Signed On 09-11-23 14:07:37 WATER CONTROL SUPERVISOR by Fabian Mancilla
== END 2023-09-10 02:39 | disposition home or self-care (01) ==
LOC: ER 23:25
DX: E11.22 Type 2 diabetes mellitus with diabetic chronic kidney disease (principal); I12.0 Hypertensive chronic kidney disease with stage 5 chronic kidney disease or end stage renal disease; N18.5 Chronic kidney disease, stage 5; Z99.2 Dependence on renal dialysis; F17.210 Nicotine dependence, cigarettes, uncomplicated; Z88.8 Allergy status to other drugs, medicaments and biological substances
CPT/HCPCS: 93005; 85025; 80048; 36415; 83735; 84484; 71045; 96375; 96374; 99285; J0360; C9113; J2405

== ENCOUNTER 2025-01-16 16:50 | Emergency (ER) | payer OTHER ==
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
[2025-01-17 01:00] VITALS: BP 153/89; TEMP 98.1; O2SAT 100
== END 2025-01-16 19:28 | disposition home or self-care (01) ==
LOC: ER 16:50
DX: M54.2 Cervicalgia (principal); M25.561 Pain in right knee; M25.522 Pain in left elbow; V49.49XA Driver injured in collision with other motor vehicles in traffic accident, initial encounter
CPT/HCPCS: 71045; 72125; 99283

== ENCOUNTER 2025-06-17 05:17 | Emergency (ER) | payer OTHER ==
[2025-06-17 06:12] LABS: Absolute Lymphocytes (CBC) 1.3 K/uL (0.7-4.9); Hematocrit 37.0 % (39.6-49.0); Hemoglobin 12.2 g/dL (13.6-17.9); MCH 27.8 pg (27.0-35.0); MCHC 33.0 g/dL (32.0-36.0); MCV 84.4 fL (80-100); MPV 8.6 fL (7.6-11.3); Nucleated RBC Absolute Count 0.0 (0-0); Nucleated Red Blood Cells % 0.0 % (0-0); RBC Red Blood Cell Count 4.38 M/uL (4.33-5.43); White Blood Count 9.60 thou/uL (4.3-10.9)
[2025-06-17 06:25] LABS: PT Prothrombin Time 11.5 SECONDS (10-13.0); PTT, Activated Partial Thromb 32.2 SECONDS (27.2-37.4); Protime INR 1.02
[2025-06-17 06:42] LABS: Anion Gap 11.9 mEq/L (5.0-15.0); BUN Blood Urea Nitrogen 60.0 mg/dL (7-18); Glucose Level 134.0 mg/dL (74-106); Potassium 3.9 mEq/L (3.5-5.1); Troponin High Sensitivity 13.7 pg/mL (<58.9)
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
--- NOTE | 2025-06-17 06:59 | RAD REPORT ---
EXAM: Chest Single View HISTORY: 49 years Male Left arm numbness COMPARISON: 01/16/2025 FINDINGS: LUNGS/PLEURA: The lungs are clear. No pleural effusions or pneumothorax. No pulmonary edema. CARDIAC/MEDIASTINUM: The cardiac silhouette is within normal limits. UPPER ABDOMEN: No significant abnormality. BONES: No acute abnormality. LINES/TUBES/OTHER: N/A IMPRESSION: No evidence of acute cardiopulmonary disease.
--- NOTE | 2025-06-17 07:10 | ER ---
[facility] Name[facility] Age: 49 yrs Sex: Male : 1975 Arrival Date: 06/17/2025 Time: 05: Bed 7 Private MD: Diagnosis: Paresthesia of skin;Essential (primary) hypertension;Chronic kidney disease, stage 5 Presentation: 06/17 05:27 Chief complaint: Patient states: Pt to ED via POV c/o left arm numbness that started mf3 about 20 mins ago. pt states he was sleeping and felt the numbness upon awakening. Coronavirus screen: At this time, the client does not indicate any symptoms associated with coronavirus-19. Ebola Screen: No symptoms or risks identified at this time. Initial Sepsis Screen: Does the patient meet any 2 criteria? No. Patient's initial sepsis screen is negative. Does the patient have a suspected source of infection? No. Patient's initial sepsis screen is negative. Risk Assessment: Do you want to hurt yourself or someone else? Patient reports no desire to harm self or others. Onset of symptoms was June 17, 2025 at 05:10. 05:27 Method Of Arrival: Ambulatory 3 05:27 Acuity: DOMINIQUE 3 mf3 Triage Assessment: 05:31 General: Appears in no apparent distress. Behavior is calm, cooperative, appropriate mf3 for age. 05:31 Pain: Denies pain. mf3 Historical: - Allergies: 05:31 Ranitidine HCl; mf3 - PMHx: 05:31 CKD; Diabetes - NIDDM; Hypertension; mf3 - PSHx: 05:31 Appendectomy; mf3 - Immunization history:: Adult Immunizations up to date. - Infectious Disease History:: Denies. - Social history:: Smoking status: Patient reports the use of cigarette tobacco products, smokes one-half pack cigarettes per day. Screenin:33 [facility] ED Fall Risk Assessment (Adult) History of falling in the last 3 months, mf3 including since admission No falls in past 3 months (0 pts) Confusion or Disorientation No (0 pts) Intoxicated or Sedated No (0 pts) Impaired Gait No (0 pts) Mobility Assist Device Used No (0 pt) Altered Elimination No (0 pt) Score/Fall Risk Level 0 - 2 = Low Risk. Abuse screen: Denies threats or abuse. Denies injuries from another. Nutritional screening: No deficits noted. Tuberculosis screening: No symptoms or risk factors identified. Never had TB. Assessment: 05:33 General: Appears in no apparent distress. Pain: Denies pain. Neuro: Level of mf3 Consciousness is awake, alert, obeys commands, Oriented to person, place, time, situation, Appropriate for age Numbness in left arm. 05:33 Cardiovascular: Capillary refill Patient's skin is warm and dry. Respiratory: Airway is mf3 patent Trachea midline Respiratory effort is even, unlabored. GI: No signs and/or symptoms were reported involving the gastrointestinal system. : No signs and/or symptoms were reported regarding the genitourinary system. 06:42 Reassessment: Patient and/or family updated on plan of care and expected duration. Pain ha1 level reassessed. Patient is alert, oriented x 3, equal unlabored respirations, skin warm/dry/pink. Patient denies pain at this time. Patient states feeling better. Patient states symptoms have improved. Vital Signs: 05:27 BP 172 / 84; Pulse 63; Resp 18; Temp 97.8; Pulse Ox 98% on R/A; Weight 99.79 kg; Height mf3 5 ft. 9 in. ; 05:27 Pain 6/10; mf3 06:42 BP 149 / 81; Pulse 56; Resp 16 S; Pulse Ox 98% on R/A; ha1 05:27 Body Mass Index 32.49 (99.79 kg, 175.26 cm) mf3 05:27 Pain Scale: Adult mf3 [place] Coma Score: 05:33 Eye Response: spontaneous(4). Motor Response: obeys commands(6). Verbal Response: mf3 oriented(5). Total: 15. NIH Stroke Scale Scores: 05:39 NIHSS Score: 0 ms3 ED Course: 05:18 Patient arrived in ED. jj6 05:21 Johann Nuñez DO is Attending Physician. ms3 05:31 Triage completed. mf3 05:31 Arm band placed on right wrist. mf3 05:33 Patient has correct armband on for positive identification. Bed in low position. Call 3 light in reach. Side rails up X 1. Provided Education on: educated on POC. 06:02 Inserted saline lock: 20 gauge in right antecubital area, using aseptic technique. mf3 Blood collected. Flushed with 10 mL NS. 06:08 CXR XRAY In Process Unspecified. EDMS 06:27 CT Head Brain wo Cont In Process Unspecified. EDMS 07:07 Jona Rodriguez MD is Referral Physician. ms3 07:10 Ganesh Diamond, JORDYN is Primary Nurse. jl7 07:19 No provider procedures requiring assistance completed. IV discontinued, intact, ap3 bleeding controlled, No redness/swelling at site. Pressure dressing applied. Administered Medications: No medications were administered Medication: 05:33 VIS not applicable for this client. mf3 Point of Care Testing: Blood Glucose: 05:42 Blood Glucose: 118 mg/dL; al5 Ranges: Outcome: 07:10 Discharge ordered by . ms3 07:19 Discharged to home ambulatory, with family, ap3 07:19 Condition: good 07:19 Discharge instructions given to patient, Instructed on discharge instructions, follow up and referral plans. Demonstrated understanding of instructions, follow-up care, 07:19 Patient left the ED. ap3 NIH Stroke Scale - NIH Stroke Score Date: 06/17/2025 Time: 05:39 Total Score = 0 10. Dysarthria (speech clarity - read or repeat words) - 0(Normal) 11. Extinction and Inattention (visual/tactile/auditory/spatial/personal) - 0(No abnormality) 1a. Level of Consciousness (LOC) - 0(Alert) 1b. Level of Consciousness (LOC) (Month \T\ Age) - 0(Both) 1c. LOC Commands (Open \T\ Closes Eyes/Sanitary Engineering Teacher) - 0(Both) 2. Best Gaze (Lateral Gaze Paresis) - 0(Normal) 3. Visual Field Loss - 0(No visual loss) 4. Facial Palsy - 0(Normal) 5a. Left Arm: Motor (10-second hold) - 0(No drift) 5b. Right Arm: Motor (10-second hold) - 0(No drift) 6a. Left Leg: Motor (5-second hold - always test supine) - 0(No drift) 6b. Right Leg: Motor (5-second hold - always test supine) - 0(No drift) 7. Limb Ataxia (finger/nose \T\ heel/vaughan - test with eyes open) - 0(Absent) 8. Sensory Loss (pinprick arms/legs/face) - 0(Normal) 9. Best Language: Aphasia (description/naming/reading) - 0(No aphasia) Initials: ms3 Signatures: Dispatcher [employer] Ganesh Louie RN RN jl7 Essie Garcia, RN RN ap3 Johann Nuñez, DO RICHARDSON ms3 Lizzie Telles jj6 Isabell Ugarte RN RN ha1 Essie Knight, JORDYN RN al5 Ariadna Peterson RN RN mf3
--- NOTE | 2025-06-17 07:10 | EDPHYS ---
Physician Documentation [facility] Name: Krishna Ha Age: 49 yrs Sex: Male : 1975 Arrival Date: 06/17/2025 Time: 05:17 Bed 7 Private MD: ED Physician Johann Nuñez HPI: 06/17 05:39 This 49 yrs old Black Male presents to ER via Ambulatory with complaints of Numbness Of ms3 Arm, Doesn't Feel Right. 05:39 49-year-old male with past medical history of chronic kidney disease stage V, diabetes, ms3 hypertension presents to the emergency department after waking up from sleep with left arm numbness that lasted for 10 to 12 seconds. Patient states on waking up he immediately jumped out of bed and held his arm above his head and rubbed his fingers and the sensation in his arm improved. Patient states his symptoms have resolved since onset. Patient notes he previously had arm numbness while sleeping. Patient is concerned this could be related to his kidneys.. Historical: - Allergies: 05:31 Ranitidine HCl; mf3 - PMHx: 05:31 CKD; Diabetes - NIDDM; Hypertension; mf3 - PSHx: 05:31 Appendectomy; mf3 - Immunization history:: Adult Immunizations up to date. - Infectious Disease History:: Denies. - Social history:: Smoking status: Patient reports the use of cigarette tobacco products, smokes one-half pack cigarettes per day. ROS: 05:39 Constitutional: Negative for fever, and chills. Cardiovascular: Negative for chest ms3 pain, and palpitations. Respiratory: Negative for shortness of breath, cough, wheezing, and pleuritic chest pain, Abdomen/GI: Negative for abdominal pain, nausea, vomiting, diarrhea, and constipation, MS/Extremity: Negative for injury and deformity, Skin: Negative for injury, rash, and discoloration, 05:39 Neuro: Positive for Left arm numbness, Exam: 05:39 Constitutional: This is a well developed, well nourished patient who is awake, alert, ms3 and in no acute distress. Cardiovascular: Regular rate and rhythm with a normal S1 and S2. No gallops, murmurs, or rubs. Normal PMI, no JVD. No pulse deficits. Respiratory: Lungs have equal breath sounds bilaterally, clear to auscultation and percussion. No rales, rhonchi or wheezes noted. No increased work of breathing, no retractions or nasal flaring. Abdomen/GI: Soft, non-tender, with normal bowel sounds. No distension or tympany. No guarding or rebound. No evidence of tenderness throughout. Skin: Warm, dry with normal turgor. Normal color with no rashes, no lesions, and no evidence of cellulitis. MS/ Extremity: Pulses equal, no cyanosis. Neurovascular intact. Full, normal range of motion. Neuro: Awake and alert, GCS 15, oriented to person, place, time, and situation. Cranial nerves II-XII grossly intact. Motor strength 5/5 in all extremities. Sensory grossly intact. Cerebellar exam normal. Normal gait. 06:34 ECG was reviewed by the Attending Physician. ms3 Vital Signs: 05:27 BP 172 / 84; Pulse 63; Resp 18; Temp 97.8; Pulse Ox 98% on R/A; Weight 99.79 kg; Height 3 5 ft. 9 in. ; 05:27 Pain 6/10; mf3 06:42 BP 149 / 81; Pulse 56; Resp 16 S; Pulse Ox 98% on R/A; ha1 05:27 Body Mass Index 32.49 (99.79 kg, 175.26 cm) 3 05:27 Pain Scale: Adult 3 NIH Stroke Scale Scores: 05:39 NIHSS Score: 0 ms3 [place] Coma Score: 05:33 Eye Response: spontaneous(4). Motor Response: obeys commands(6). Verbal Response: mf3 oriented(5). Total: 15. MDM: 05:37 Medical Screening Exam initiated ms3 05:39 Differential diagnosis: Electrolyte abnormality vs Peripheral neuropathy vs ms3 radiculopathy vs TIA. 07:36 Data reviewed: vital signs, nurses notes, lab test result(s), EKG, radiologic studies, ms3 and as a result, I will discharge patient. Independent interpretation of the following test(s) in the Emergency Department X-Ray: My interpretation is Chest x-ray image reviewed by me did not reveal pneumonia, pulmonary edema, cardiomegaly.. Counseling: I had a detailed discussion with the patient and/or guardian regarding the historical points, exam findings, and any diagnostic results supporting the discharge/admit diagnosis, lab results, radiology results, the need for outpatient follow up, to return to the emergency department if symptoms worsen or persist or if there are any questions or concerns that arise at home. Special discussion: I discussed with the patient/guardian in detail that at this point there is no indication for admission to the hospital. It is understood, however, that if the symptoms persist or worsen the patient needs to return immediately for re-evaluation. ED course: Discussed CT and labs with patient. Discussed with patient possibility of laying on arm causing his paresthesia like symptoms. Patient has been asymptomatic while in the emergency department. Patient to follow-up with Dr. Rodriguez in 2 to 3 days. Patient understands and agrees with plan. All questions were answered. Return precautions were discussed to include worsening symptoms, numbness, weakness, or any other concerns.. 06/17 05:37 Order name: Basic Metabolic Panel; Complete Time: 06:52 ms3 06/17 05:37 Order name: CBC with Diff; Complete Time: 06:52 ms3 06/17 05:37 Order name: High Sensitivity Troponin; Complete Time: 06:52 ms3 06/17 05:37 Order name: Protime (+inr); Complete Time: 06:52 ms3 06/17 05:37 Order name: Ptt, Activated; Complete Time: 06:52 ms3 06/17 05:54 Order name: Glucose, Ancillary Testing; Complete Time: 06:52 EDMS 06/17 05:39 Order name: CT Head Brain wo Cont; Complete Time: 06:52 ms3 06/17 05:39 Order name: CXR XRAY; Complete Time: 06:59 ms3 06/17 05:37 Order name: Accucheck; Complete Time: 05:42 ms3 06/17 05:37 Order name: Cardiac monitoring; Complete Time: 05:44 ms3 06/17 05:37 Order name: EKG - Nurse/Tech; Complete Time: 05:44 ms3 06/17 05:37 Order name: IV Saline Lock; Complete Time: 06:02 ms3 06/17 05:37 Order name: Labs collected and sent; Complete Time: 06:02 ms3 06/17 05:37 Order name: NPO; Complete Time: 05:44 ms3 06/17 05:37 Order name: O2 Per Protocol; Complete Time: 05:44 ms3 06/17 05:37 Order name: O2 Sat Monitoring; Complete Time: 05:44 ms3 EC:34 Rate is 54 beats/min. Rhythm is regular. QRS [place] is Normal. PA interval is normal. QRS ms3 interval is normal. Clinical impression: Sinus bradycardia. Interpreted by me. Reviewed by me. Administered Medications: No medications were administered Point of Care Testing: Blood Glucose: 05:42 Blood Glucose: 118 mg/dL; al5 Ranges: Critical Glucose Levels:Adult <50 mg/dl or >400 mg/dl <40 mg/dl or >180 mg/dl Disposition Summary: 06/17/25 07:10 Discharge Ordered Notes: Location: Home ms3 Condition: Stable ms3 Diagnosis - Paresthesia of skin ms3 - Essential (primary) hypertension ms3 - Chronic kidney disease, stage 5 ms3 Followup: ms3 - With: Jona Rodriguez MD - When: 2 - 3 days - Reason: Recheck today's complaints Discharge Instructions: - Discharge Summary Sheet ms3 - Hypertension, Adult ms3 - Paresthesia ms3 - Chronic Kidney Disease, Adult ms3 - DASH Eating Plan ms3 Forms: - Medication Reconciliation Form ms3 - Antibiotic Education ms3 - Prescription Opioid Use ms3 - Patient Portal Instructions ms3 - Leadership Thank You Letter ms3 NIH Stroke Scale - NIH Stroke Score Date: 06/17/2025 Time: 05:39 Total Score = 0 10. Dysarthria (speech clarity - read or repeat words) - 0(Normal) 11. Extinction and Inattention (visual/tactile/auditory/spatial/personal) - 0(No abnormality) 1a. Level of Consciousness (LOC) - 0(Alert) 1b. Level of Consciousness (LOC) (Month \T\ Age) - 0(Both) 1c. LOC Commands (Open \T\ Closes Eyes/Forge Shop Machine Repairer) - 0(Both) 2. Best Gaze (Lateral Gaze Paresis) - 0(Normal) 3. Visual Field Loss - 0(No visual loss) 4. Facial Palsy - 0(Normal) 5a. Left Arm: Motor (10-second hold) - 0(No drift) 5b. Right Arm: Motor (10-second hold) - 0(No drift) 6a. Left Leg: Motor (5-second hold - always test supine) - 0(No drift) 6b. Right Leg: Motor (5-second hold - always test supine) - 0(No drift) 7. Limb Ataxia (finger/nose \T\ heel/vaughan - test with eyes open) - 0(Absent) 8. Sensory Loss (pinprick arms/legs/face) - 0(Normal) 9. Best Language: Aphasia (description/naming/reading) - 0(No aphasia) Initials: ms3 Signatures: Dispatcher [employer] EDMS Savannah, Johann, DO DO ms3 Ariadna Peterson, RN RN mf3 Corrections: (The following items were deleted from the chart) 05:37 05:37 BASIC METABOLIC PANEL+C.LAB.BRZ ordered. EDMS EDMS 05:37 05:37 CBC+H.LAB.BRZ ordered. EDMS EDMS 05:38 05:37 Troponin High Sensitivity+C.LAB.BRZ ordered. EDMS EDMS 05:38 05:37 PROTIME (+INR)+COAG.LAB.BRZ ordered. EDMS EDMS 05:38 05:37 PTT, ACTIVATED+COAG.LAB.BRZ ordered. EDMS EDMS
[2025-06-17 14:36] VITALS: TEMP 97.8; O2SAT 98
[2025-06-17 14:38] VITALS: BP 149/81
== END 2025-06-17 07:19 | disposition home or self-care (01) ==
LOC: ER 05:17
DX: R20.2 Paresthesia of skin (principal); E11.22 Type 2 diabetes mellitus with diabetic chronic kidney disease; I12.0 Hypertensive chronic kidney disease with stage 5 chronic kidney disease or end stage renal disease; N18.5 Chronic kidney disease, stage 5; F17.210 Nicotine dependence, cigarettes, uncomplicated
CPT/HCPCS: 36415; 70450; 71045; 80048; 82947; 84484; 85025; 85610; 85730; 93005; 99284

== ENCOUNTER 2025-08-26 17:56 | Emergency (ER) | payer OTHER, SELFPAY ==
--- NOTE | 2025-08-26 19:46 | RAD REPORT ---
EXAM:Extremity Venous Uni Ltd HISTORY: Left leg pain TECHNIQUE: Sonographic evaluation left lower extremity performed.Grayscale, color and spectral analys is performed on all vessels COMPARISON: None. FINDINGS: Left common femoral, superficial femoral, greater saphenous, popliteal and posterior tibial veins are compressible and demonstrate augmentation. Doppler demonstrates good flow. IMPRESSION: No evidence of deep venous thrombosis involving the left lower extremity.
--- NOTE | 2025-08-26 20:06 | EDPHYS ---
Physician Documentation [facility] Name: Krishna Ha Age: 49 yrs Sex: Male : 1975 Arrival Date: 08/26/2025 Time: 17:56 Bed 20 Private MD: ED Physician Jayant Rae HPI: 08/26 18:15 This 49 yrs old Black Male presents to ER via Ambulatory with complaints of Leg Pain. kb 18:15 Pt is a 49 year old male who presents for pain to left hamstring that started today. kb Denies injury or trauma. Denies radiation of pain or tenderness. . Historical: - Allergies: 18:12 Ranitidine HCl; ph - PMHx: 18:12 CKD; Diabetes - NIDDM; Hypertension; ph - PSHx: 18:12 Appendectomy; ph - Immunization history:: Adult Immunizations unknown. - Infectious Disease History:: Denies. - Social history:: Smoking status: Patient reports the use of cigarette tobacco products, denies chronic smoking, but will smoke occasionally. ROS: 18:15 Constitutional: As per HPI kb Exam: 18:15 Constitutional: This is a well developed, well nourished patient who is awake, alert, kb and in no acute distress. Head/Face: Normocephalic, atraumatic. ENT: Moist Mucous membranes Respiratory: Respirations even and unlabored. No increased work of breathing. Talking in full sentences Skin: Warm, dry with normal turgor. Normal color. Neuro: Awake and alert, GCS 15, oriented to person, place, time, and situation. 18:15 Musculoskeletal/extremity: Extremities: grossly normal except: noted in the left hamstring: pain, ROM: intact in all extremities, Circulation is intact in all extremities. Sensation intact. Weight bearing: able to fully bear weight, Vital Signs: 18:10 BP 199 / 106; Pulse 94; Resp 18; Temp 98.4; Pulse Ox 99% on R/A; Weight 95.25 kg; ph Height 5 ft. 10 in. 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 Data reviewed: vital signs, nurses notes. kb 20:04 Test considered but Not performed: X-ray: femur xray considered but pt denies injury, kb bony tenderness. Counseling: I had a detailed discussion with the patient and/or guardian regarding the historical points, exam findings, and any diagnostic results supporting the discharge/admit diagnosis, radiology results, the need for outpatient follow up, a family practitioner, to return to the emergency department if symptoms worsen or persist or if there are any questions or concerns that arise at home. 08/26 18:06 Order name: US Extremity Venous Unilateral Ltd; Complete Time: 19:49 kb Administered Medications: 18:33 Drug: cloNIDine PO 0.1 mg PO once Route: PO; kj2 20:09 Follow up: Response: No adverse reaction; Blood pressure is lowered kj2 Disposition: 08/27 18:07 Co-signature as Attending Physician, Jayant Rae MD I reviewed the patient's care rn provided by the Advanced Practice Provider and agree with the diagnosis and treatment plan. Disposition Summary: 08/26/25 20:05 Discharge Ordered Notes: Location: Home kb Condition: Stable kb Diagnosis - Pain in leg, unspecified kb Followup: kb - With: Emergency Department - When: As needed - Reason: Worsening of condition Followup: kb - With: Private Physician - When: 2 - 3 days - Reason: Recheck today's complaints, Continuance of care, Re-evaluation by your physician Discharge Instructions: - Discharge Summary Sheet kb - Musculoskeletal Pain kb Forms: - Medication Reconciliation Form kb - Antibiotic Education kb - Prescription Opioid Use kb - Patient Portal Instructions kb - Leadership Thank You Letter kb Prescriptions: - orphenadrine citrate 100 mg Oral Tablet Sustained Release - take 1 tablet ORAL route 2 times per day As needed; 20 tablet; Refills: 0, kb Product Selection Permitted Signatures: Dispatcher [employer] EDLyndsay Pimentel FNP-C FNP-Jayant Cifuentes MD MD rn Hall, Patricia, RN RN Moustapha, Marcela, RN RN kj2
--- NOTE | 2025-08-26 20:06 | ER ---
[facility] Age: 49 yrs Sex: Male : 1975 Arrival Date: 08/26/2025 Time: 17:56 Bed 20 Private MD: Diagnosis: Pain in leg, unspecified Presentation: 08/26 18:10 Chief complaint: Patient states: Pain in back of L upper leg from buttocks to back of ph knee, started this morning denies trauma. Coronavirus screen: At this time, the client does not indicate any symptoms associated with coronavirus-19. Ebola Screen: No symptoms or risks identified at this time. Initial Sepsis Screen: Does the patient meet any 2 criteria? No. Patient's initial sepsis screen is negative. Does the patient have a suspected source of infection? No. Patient's initial sepsis screen is negative. Risk Assessment: Do you want to hurt yourself or someone else? Patient reports no desire to harm self or others. Onset of symptoms was August 26, 2025. 18:10 Method Of Arrival: Ambulatory ph 18:10 Acuity: DOMINIQUE 4 ph Triage Assessment: 18:13 General: Appears in no apparent distress. Behavior is calm, cooperative. Pain: ph Complains of pain in left gluteus dari Pain radiates to left hamstring. Historical: - Allergies: 18:12 Ranitidine HCl; ph - PMHx: 18:12 CKD; Diabetes - NIDDM; Hypertension; ph - PSHx: 18:12 Appendectomy; ph - Immunization history:: Adult Immunizations unknown. - Infectious Disease History:: Denies. - Social history:: Smoking status: Patient reports the use of cigarette tobacco products, denies chronic smoking, but will smoke occasionally. Screenin:17 [facility] Fall Risk Assessment (Adult) History of falling in the last 3 months, kj2 including since admission No falls in past 3 months (0 pts) Confusion or Disorientation No (0 pts) Intoxicated or Sedated No (0 pts) Impaired Gait No (0 pts) Mobility Assist Device Used No (0 pt) Altered Elimination No (0 pt) Score/Fall Risk Level 0 - 2 = Low Risk Maintained a safe environment, Hourly rounding (assess needs \T\ fall precautionary measures) done. Abuse screen: Denies threats or abuse. Denies injuries from another. Nutritional screening: No deficits noted. Tuberculosis screening: No symptoms or risk factors identified. 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 ss 18:16 General: Appears in no apparent distress. Behavior is cooperative. Pain: Complains of kj2 pain in left leg and left gluteus dari Pain currently is 5 out of 10 on a pain scale. Neuro: Level of Consciousness is awake, alert, obeys commands, Oriented to person, place, time, situation. Cardiovascular: Patient's skin is warm and dry. Respiratory: Airway is patent Respiratory effort is unlabored. GI: No signs and/or symptoms were reported involving the gastrointestinal system. : No signs and/or symptoms were reported regarding the genitourinary system. 18:20 Reassessment: patient verbalizes taking his scheduled blood pressure meds 45 minutes kj2 ago. 19:20 Reassessment: Patient appears in no apparent distress at this time. Patient and/or kj2 family updated on plan of care and expected duration. Pain level reassessed. 20:10 Reassessment: Patient appears in no apparent distress at this time. Patient and/or kj2 family updated on plan of care and expected duration. Pain level reassessed. Vital Signs: 18:10 BP 199 / 106; Pulse 94; Resp 18; Temp 98.4; Pulse Ox 99% on R/A; Weight 95.25 kg; ph Height 5 ft. 10 in. 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 al6 18:00 Lyndsay Knowles FNP-C is [facility]. kb 18:00 Jayant Rae MD is Attending Physician. kb 18:10 Marcela Gerard RN is Primary Nurse. kj2 18:12 Triage completed. ph 18:13 Arm band placed on Patient placed in an exam room, on a stretcher. ph 18:18 Patient has correct armband on for positive identification. Bed in low position. Call kj2 light in reach. Provided Education on: call light. 19:36 US Extremity Venous Unilateral Ltd In Process Unspecified. EDMS 20:08 No provider procedures requiring assistance completed. Patient did not have IV access kj2 during this emergency room visit. Administered Medications: 18:33 Drug: cloNIDine PO 0.1 mg PO once Route: PO; kj2 20:09 Follow up: Response: No adverse reaction; Blood pressure is lowered kj2 Medication: 18:18 VIS not applicable for this client. kj2 Outcome: 20:05 Discharge ordered by . kb 20:08 Discharged to home ambulatory, kj2 20:08 Condition: stable 20:08 Discharge instructions given to patient, Instructed on discharge instructions, follow up and referral plans. Demonstrated understanding of instructions, follow-up care, 20:18 Patient left the ED. kj2 Signatures: Dispatcher [employer]OK Lyndsay Knowles, CHANELL-C THERMAL SPRAY OPERATOR-Elizabeth Negro, RN RN Liya Le, RN RN Marcela Gerard, JORDYN RN kj2 Ellen [email or web address] Corrections: (The following items were deleted from the chart) 20:10 19:57 BP 176 / 85; Pulse 94bpm; Resp 18bpm; Pulse Ox 100% RA; kj2 kj2
[2025-08-26 20:47] VITALS: O2SAT 100
[2025-08-26 20:50] VITALS: BP 176/85; TEMP 98.2
== END 2025-08-26 20:18 | disposition home or self-care (01) ==
LOC: ER 17:56
DX: M79.662 Pain in left lower leg (principal)
CPT/HCPCS: 93971; 99283